=== PATIENT | male | born 1960 | race Caucasian/White ===

== ENCOUNTER 2019-06-27 18:44 | Emergency (ER) | payer SELFPAY ==
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
[2019-06-27 19:16] LABS: Absolute Lymphocytes (CBC) 2.6 K/uL (0.7-4.9); Basophils % 1.3 % (0-1.3); Hematocrit 43.8 % (39.6-49.0); Lymphocytes % 20.4 % (15.3-44.8); MPV 7.9 fL (7.6-11.3); RBC Red Blood Cell Count 4.35 M/uL (4.33-5.43)
[2019-06-27] MEDS ORDERED: FENTANYL CITR 100 MCG/2 ML ONE (19:17)
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
[2019-06-27 19:58] LABS: BUN Blood Urea Nitrogen 6 mg/dL (7-18); Bicarbonate 25 mmol/L (21-32); Glucose Level 100 mg/dL (74-106); Potassium 3.4 mmol/L (3.5-5.1); Sodium Level 132 mmol/L (136-145)
[2019-06-27 20:53] LABS: Barbiturates NEGATIVE (NEGATIVE); Benzodiazepines NEGATIVE (NEGATIVE); Cocaine NEGATIVE (NEGATIVE); METHAMPHETAM NEGATIVE (NEGATIVE); Methadone NEGATIVE (NEGATIVE); Opiates NEGATIVE (NEGATIVE); Phencyclidine NEGATIVE (NEGATIVE); THC Cannibis POSITIVE (NEGATIVE)
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
[2019-06-27 22:23] LABS: Urine Blood TRACE (NEG); Urine Glucose NEGATIVE (NEG); Urine Protein TRACE (NEG)
[2019-06-27 22:43] VITALS: TEMP 97
[2019-06-27 22:46] VITALS: BP 133/82; O2SAT 95
== END 2019-06-27 22:36 | disposition short-term general hospital (02) ==
LOC: ER 18:44
DX: S22.22XA Fracture of body of sternum, initial encounter for closed fracture (principal); S22.009A Unspecified fracture of unspecified thoracic vertebra, initial encounter for closed fracture; S22.41XA Multiple fractures of ribs, right side, initial encounter for closed fracture; S20.219A Contusion of unspecified front wall of thorax, initial encounter; F10.129 Alcohol abuse with intoxication, unspecified; F12.10 Cannabis abuse, uncomplicated; V48.5XXA Car driver injured in noncollision transport accident in traffic accident, initial encounter; F17.210 Nicotine dependence, cigarettes, uncomplicated
CPT/HCPCS: 36415; 70450; 71045; 71260; 72125; 74177; 80048; 80307; 80320; 81003; 85025; 86850; 86900; 86901; 96374; 99285; J3010; Q9967

== ENCOUNTER 2019-12-01 10:09 | Emergency (ER) | payer BC, SELFPAY ==
--- OUTSIDE RECORDS SUMMARY | 2019-12-01 10:25 | XMS REPORT | Continuity of Care Document ---
:1960 Author Organization [employer] Information [employer] Care Team Providers Name Role Phone [facility] Information [employer] Unavailable Un available Problems Problem Status Onset Classification Date Comments Sourc e Date Reported C41.1 M84.5XA Active [place] Z51.0 0 [facility] HOSP[place]/U [place] [facility] [place] MULTIPLE RIB Active [facility] FX 0 [facility] STERNAL FX Active [address] FRACTURE OF Active [facility] ONE RIB, UNSP Medica l SIDE, INIT Center FOR Medications Medication Details Route Status Patient Ordering Order Source Instructions Provider Date Iohexol 200 mL, Route: Inactive [facility] IVP, Drug Form: 2019 Medical SOLN, Dosing Center Weight 70.455, kg, ONCALL, STAT, Start date: 07/03/19 16:59:00 [employer] ATTENDANT, Duration: 1 doses or times, Dose = 2.2ml/kg, Max dose = 100ml -- "To be infused by Radiology Staff ONLY" gabapentin 300 300 mg = 1 cap, Active H [place] MG Oral Capsule PO, Q8Hnow, # 2020 Me dical 60 caplet, 0 Center Refill(s) Methocarbamol 1,500 mg = 2 [place] Oral tab, PO, TID, X 2020 Medi shivani Tablet [Robaxin] 7 day, # [address] tab, 0 Refill(s) tramadol 50 mg = 1 tab, Active [place] hydrochloride 50 PO, Q6H, PRN 2020 Mi dical MG Oral Tablet Pain Score 4-6, C enter # 50 tab, 0 Refill(s) chlorhexidine Notes: (Same No Longer [place] gluconate 1.2 As: Peridex) Active 2019 Medic al MG/ML Mouthwash Center [Peridex] Amoxicillin 875 Notes: With No Longer [place] MG / Clavulanate food. (Same as: Active 2019 Medical 125 MG Oral Augmentin 875) Cente r Tablet [Augmentin 875-mg] propofol (ANES) Route: IV, Drug Inactive [facility] form: INJ, 2019 Medical ONCE, Stop Center date: 06/30/19 11:25:00 [employer] ATTENDANT fentaNYL (ANES) Route: IV, Drug Inactive [facility] form: INJ, 2019 Medical ONCE, Stop Center date: 06/30/19 11:25:00 [employer] ATTENDANT glycopyrrolate Route: IV, Drug Inactive [facility] (ANES) form: INJ, 2019 Medical ONCE, Stop Center date: 06/30/19 11:25:00 [employer] ATTENDANT neostigmine Route: IV, Drug Inactive [facility] (ANES) form: INJ, 2019 Medical ONCE, Stop Center date: 06/30/19 11:25:00 KIDS [employer] ATTENDANT ondansetron Route: IV, Drug Inactive [facility] (ANES) form: INJ, 2019 Medical ONCE, Stop Center date: 06/30/19 11:24:00 [employer] ATTENDANT phenylephrine Route: IV, Drug Inactive [facility] (ANES) form: INJ, 2019 Medical ONCE, Stop Center date: 06/30/19 11:04:00 KIDS CL[employer] ATTENDANT lidocaine (ANES) Route: IV, Drug Inactive [facility] form: INJ, 2019 Medical ONCE, Stop Center date: 06/30/19 10:58:00 KIDS CL[employer] ATTENDANT rocuronium Route: IV, Drug Inactive [place]) form: INJ, 2019 Medical ONCE, Stop Center date: 06/30/19 10:58:00 KIDS [employer] ATTENDANT dexamethasone Route: IV, Drug Inactive [facility] (ANES) form: INJ, 2019 Medical ONCE, Stop Center date: 06/30/19 10:58:00 KIDS CL[employer] ATTENDANT ceFAZolin ([facility]) Route: IV, Drug Inactive [facility] form: INJ, 2019 Medical ONCE, Stop Center date: 06/30/19 10:53:00 KIDS [employer] ATTENDANT Hydromorphone Notes: Same as Inactive [place] Dilaudid [address] [place] [address] Center Flumazenil Notes: (Same [place] as: Romazicon) [address] [place] [address] Center Naloxone Notes: Same [place] Narcan 2020 Medical Center Ondansetron Notes: (Same Inactive [place] as: Zofran) 2020 Medical MEDICATION Center WASTE Product Size: 4 mg Product Wasted: ___ mg midazolam (ANES) Route: IV, Drug Inactive [facility] form: SOLN, 2020 Medical ONCE, Stop Center date: 06/30/19 10:38:00 [employer] ATTENDANT Lactated Ringers Route: IV, Inactive [facility] Injection IV Total Volume: 2019 Medic al (ANES) 1000 mL 1,000, Start Cent er date: 06/30/19 10:11:00 [employer] ATTENDANT, Stop date: 06/30/19 11:11:00 [employer] ATTENDANT Docusate Sodium Notes: (Same as No Longer [place] 50 MG / Senokot-S) Active 2020 Medical sennosides, LONGTERM Equiv. to Center 8.6 MG Oral Stacy-Colace. Tablet Isolyte S PH 7.4 Notes: (Same No Longer [facility] 1,000 mL as: Isolyte S Active 2020 Medical PH7.4, Center Normosol-R PH 7.4, Plasma-Lyte A ) Lovenox Notes: (Same No Longer [place] as: Lovenox) Active 2020 Medical Center Amlodipine Notes: (Same No Longer [place] as: Norvasc) Active 2020 Medical Center Albuterol 0.83 Notes: SEE RT No Longer H [place] MG/ML Inhalant DOCUMENTATION Active 2019 Med ical Solution (Same as: Center Proventil) Oxycodone Notes: (Same [place] Longer [place] Hydrochloride 5 as: Roxicodone) Active 2020 Medical MG Oral Tablet Center Morphine Notes: (Same Inactive [place] as:MORPhine 2020 Medical Sulfate) Center Folic Acid Notes: (Same No Longer [place] as: Folvite) Active 2020 Medical Center multivitamin Notes: (Same No Longer [place] as:Thera) Active 2020 Medical WASTE: F/P - Center Black; E - Municipal Trash Bin Take with food. Thiamine Notes: (Same No Longer [place] As: Vitamin B1) Active 2020 Medical Center Morphine 4 mg, Route: Inactive [place] IVP, ONCE, kg, 2019 Medical Start date: Center 06/28/19 16:33:00 [employer] ATTENDANT, Stop date: 06/28/19 16:33:00 [employer] ATTENDANT remove patch Notes: Remove No Longer [place] patch 12 hours Active [facility] after Center application each day. Sodium Chloride 1,000 mL, Rate: Inactive [place] 0.9% IV 1,000 mL 100 ml/hr, 2019 Medi shivani + M.V.I.-12 10 Infuse over: Cent er mL Daily + folic 10.1 hr, Route: acid IV 1 mg IV, Total Daily + thiamine Volume: IV 1 1,011.2, Start date: 06/28/19 9:10:00 [employer] ATTENDANT, Duration: 1 doses or times, Stop date: 06/28/19 19:15:00 [employer] ATTENDANT, 0 Lidocaine 0.05 Notes: Apply No Longer [place] MG/MG only once for Active 2020 Medical Transdermal up to 12 hours Cente r Patch in a 24-hour period (12 hours on and 12 hours off). (Same as: Lidoderm) "Remove old patch before application of new patch" Naproxen Notes: (Same No Longer [place] as: Naprosyn) Active 2020 Medical Take with food. Center Thiamine Notes: (Same Inactive [place] As: Vitamin B1) [address] [place] [address] Center Lidocaine Notes: Apply [place] Longer [place] Hydrochloride only once for Active 2020 [facility] shivani 0.05 MG/MG up to 12 hours Center Transdermal in a 24-hour Patch [Lidoderm] period (12 hours on and 12 hours off). (Same as: Lidoderm) "Remove old patch before application of new patch" Acetaminophen Notes: Max [place] Longer [place] acetaminophen Active 2020 Medical 4000 mg/day (4 Center gm/day). (Same as: Tylenol Extra Strength) gabapentin Notes: (Same No Longer [place] as: Neurontin) Active 2020 [facility] Center Tramadol Notes: Not to [place] Longer [place] exceed Active 2020 Medical 400mg/day. Center (Same As: Ultram) Enoxaparin 30), Start Inactive [place] date: 01/08/20 2020 Medical 3:00:00 [employer] ATTENDANT, Center Duration: 30 day, Stop date: 07/27/19 15:00:00 [employer] ATTENDANT Isolyte S PH 7.4 1,000 mL, Rate: Inactive [place] 1000 mL 100 ml/hr, 2019 Medical Infuse over: 10 Center hr, Route: IV, Total Volume: 1,000, Start date: 06/28/19 2:15:00 [employer] ATTENDANT, Duration: 30 day, Stop date: 07/28/19 2:14:00 [employer] ATTENDANT ketAMINE Notes: (Same No Longer [place] additive 300 mg as: keTALAR) Active 2019 Med ical [17 mg/hr] + Total volume in [place] ter Premix Diluent 30 mL syringe Sodium Chloride 0.9% 30 mL Lidocaine 1 %, Route: Inactive [place] SUB-Q, ONCE, 2019 Medical kg, Start date: Center 06/28/19 0:59:00 [employer] ATTENDANT, Stop date: 06/28/19 0:59:00 [employer] ATTENDANT Bupivacaine 10 mL, Route: Inactive [place] Hydrochloride SUB-Q, kg, 2019 Medical 2.5 MG/ML ONCE, STAT, Center Injectable Start date: Solution 06/28/19 0:59:00 [employer] ATTENDANT, Stop date: 06/28/19 0:59:00 [employer] ATTENDANT Albuterol 0.833 Notes: (Same No Longer H [place] MG/ML / as: Duoneb) Active 2019 [facility] Ipratropium [place] 0.167 MG/ML Inhalant Solution [DuoNeb] Ketamine 20 mg, Route: No Longer [place] IV, ONCE, kg, Active 2019 Medical Start date: Center 06/27/19 23:58:00 [employer] ATTENDANT, Stop date: 06/27/19 23:58:00 [employer] ATTENDANT Saline Flush Notes: Same as: No Longer [place] 0.9% BD Posiflush Active 2019 Medical Sterile Center Isolyte S PH 7.4 1,000 mL, Rate: No Longer 06/28 [place] 1000 mL 125 ml/hr, 2019 Medical Infuse over: 8 Center hr, Route: IV, Total Volume: 1,000, Priority: STAT, Start date: 06/27/19 23:55:00 [employer] ATTENDANT, Duration: 1 doses or times, Stop date: 06/28/19 7:54:00 [employer] ATTENDANT Allergies, Adverse Reactions, Alerts Substance Category Reaction Severity Reaction Status Date Comments S ource type Reported No Known Assertion Drug [facility] Medication allergy Medic al Allergies Center Immunizations Immunization Date Site Status Last Updated Comments Sour ce Given diphtheria/pertus Left completed Rosaline [facility] sis, acel/tetanus 0 deltoid Me dical adult Center Results Order Name Results Value Reference Date Interpretation Comments Avis rce Range HEMATOLOGY Segs 70.4 45.0 - 07/[address] [facility] 75.0 /[address] [place] [address] HEMATOLOGY Lymphocytes 17.0 20.0 - 07/[address] [facility] [address] HEMATOLOGY Monocytes 8.4 2.0 - 12.0 07/[address] HEMATOLOGY Eosinophils 3.1 0.0 - 4.0 07/[address] HEMATOLOGY Basophils 1.1 0.0 - 1.0 07/[address] HEMATOLOGY Neutrophils # 8.1 1.5 - 8.1 07/[address] HEMATOLOGY Lymphocytes # 2.0 1.0 - 5.5 07/[address] HEMATOLOGY Monocytes # 1.0 0.0 - 0.8 07/[address] HEMATOLOGY Eosinophils # 0.4 0.0 - 0.5 07/[address] HEMATOLOGY Basophils # 0.1 0.0 - 0.2 07/[address] HEMATOLOGY Macrocyte 1+ None Seen 07/[address] [facility] *ABN* /2019 [facility] (07/02/19 3:51 AM) [place] HEMATOLOGY WBC 11.5 3.7 - 10.4 07/[address] HEMATOLOGY RBC 3.78 4.70 - 07/02 [place] 6.[address] HEMATOLOGY Hgb 13.1 14.0 - 07/[address] [facility] 18.0 2019 [facility] HEMATOLOGY Hct 39.1 42.0 - 07/[address] [facility] [address] HEMATOLOGY MCV 103.3 80.0 - 07/[address] [facility] [address] HEMATOLOGY MCH 34.8 27.0 - 07/02 [place] 31.0 2019 [facility] HEMATOLOGY MCHC 33.6 32.0 - 07/02 [facility] [place] 36.0 /2020 [facility] HEMATOLOGY RDW 16.0 11.5 - 07/02 [place] 14.5 /2020 [facility] HEMATOLOGY Platelet 369 133 - 450 07/[address] HEMATOLOGY MPV 7.4 7.4 - 10.4 07/[address] HEMATOLOGY WBC 11.9 3.7 - 10.4 07/[address] HEMATOLOGY RBC 3.69 4.70 - 07/01 [place] 6.10 /2019 [facility] HEMATOLOGY Hgb 12.5 14.0 - 07/01 [place] 18.0 /2020 [facility] HEMATOLOGY Hct 37.9 42.0 - 07/01 [place] 54.0 /2020 [facility] HEMATOLOGY MCV 102.9 80.0 - 07/01 [place] 94.0 /2020 [facility] HEMATOLOGY MCH 33.9 27.0 - 07/01 [place] 31.0 /2019 [facility] HEMATOLOGY MCHC 32.9 32.0 - 07/01 [place] 36.0 /2020 [facility] HEMATOLOGY RDW 15.7 11.5 - 07/01 [place] 14.5 /2020 [facility] HEMATOLOGY Platelet 333 133 - 450 07/[address] HEMATOLOGY MPV 7.9 7.4 - 10.4 07/[address] HEMATOLOGY Segs 85.4 45.0 - 07/01 [place] 75.0 /2020 [facility] HEMATOLOGY Lymphocytes 7.9 20.0 - 07/01 [place] 40.0 /2020 [facility] HEMATOLOGY Monocytes 6.2 2.0 - 12.0 07/[address] HEMATOLOGY Eosinophils 0.1 0.0 - 4.0 07/[address] HEMATOLOGY Basophils 0.4 0.0 - 1.0 07/[address] HEMATOLOGY Neutrophils # 10.1 1.5 - 8.1 07/01 [facility] [place] [address] HEMATOLOGY Lymphocytes # 0.9 1.0 - 5.5 07/01 [facility] [place] [address] HEMATOLOGY Monocytes # 0.7 0.0 - 0.8 07/[address] HEMATOLOGY Macrocyte 1+ None Seen 07/[address] [facility] *ABN* /2019 Medical (07/01/19 12:35 AM) Cente r Culture: No 06/[address] [facility] Anaerobic Anaerobes 2020 Medical Isolated Center After 5 Days Gram Stain Few Wbc'S; 06/[address] [facility] Report No Organisms Seen [facility] Culture: Rare Streptococcus anginosus 06/[address] [facility] Aspirate/Body Rare Neisseria Species, Not gonorrheae or meningit idis Medical Fluid/Tissue Rare Actinomyces odontolyticus Center Actinomyces Actinomyce 06/[address] [facility] odontolyticus s [facility] odontolyti Center cus Streptococcus Streptococ 06/30 [place] anginosus cus Medical anginosus Center Culture: No 06/[address] [facility] Anaerobic Anaerobes /2019 Medical Isolated [place] After 5 Days Gram Stain Few Wbc'S; Many Rbc'S 06/[address] [facility] Report No Organisms Seen [facility] Culture: Moderate Eikenella corrodens 06/[address] [facility] Aspirate/Body Rare Neisseria subflava Medical Fluid/Tissue Rare Rothia mucilaginosa Center Rare Haemophilus hemolyticus Haemophilus Haemophilu 06/[address] [facility] hemolyticus s Medical hemolyticu Center s Neisseria Neisseria 06/[address] [facility] subflava subflava /2020 [facility] HEMATOLOGY WBC 14.5 3.7 - 10.4 06/[address] HEMATOLOGY RBC 3.81 4.70 - 06/[address] [facility] 6.10 [facility] HEMATOLOGY Hgb 13.1 14.0 - 06/[address] [facility] 18.0 /2019 [facility] HEMATOLOGY Hct 39.2 42.0 - 06/[address] [facility] 54.0 /2019 [facility] HEMATOLOGY MCV 102.8 80.0 - 06/30 [facility] 94.0 /2019 [facility] HEMATOLOGY MCH 34.2 27.0 - 06/[address] [facility] 31.0 /2020 [facility] HEMATOLOGY MCHC 33.3 32.0 - 06/30 [facility] 36.0 /2019 [facility] HEMATOLOGY RDW 15.7 11.5 - 06/[address] [facility] 14.5 /2020 [facility] HEMATOLOGY Platelet 312 133 - 450 06/[address] HEMATOLOGY MPV 7.9 7.4 - 10.4 06/[address] HEMATOLOGY Segs 76.5 45.0 - 06/[address] [facility] 75.0 /2019 [facility] HEMATOLOGY Lymphocytes 11.2 20.0 - 06/[address] [facility] 40.0 /2020 [facility] HEMATOLOGY Monocytes 8.7 2.0 - 12.0 06/[address] HEMATOLOGY Eosinophils 2.5 0.0 - 4.0 06/[address] HEMATOLOGY Basophils 1.1 0.0 - 1.0 06/[address] HEMATOLOGY Neutrophils # 11.1 1.5 - 8.1 06/[address] HEMATOLOGY Lymphocytes # 1.6 1.0 - 5.5 06/[address] HEMATOLOGY Monocytes # 1.3 0.0 - 0.8 06/[address] HEMATOLOGY Eosinophils # 0.4 0.0 - 0.5 06/[address] HEMATOLOGY Basophils # 0.2 0.0 - 0.2 06/[address] HEMATOLOGY Macrocyte 1+ None Seen 06/30 [facility]* /2019 [facility] (06/30/19 3:05 AM) [place] ELECTROLYTE AGAP 13.0 10.0 - 06/29 [facility] [place] [facility] [address] ELECTROLYTE Glucose Lvl 80 70 - 99 06/[address] ELECTROLYTE BUN 13 7 - 22 06/[address] ELECTROLYTE Creatinine 0.72 0.50 - 06/29 [facility] [place] [facility] Lvl 1.[address] ELECTROLYTE Sodium Lvl 135 135 - 145 06/[address] ELECTROLYTE Potassium Lvl 4.0 3.5 - 5.1 06/[address] ELECTROLYTE Chloride Lvl 103 95 - 109 06/[address] ELECTROLYTE CO2 23 24 - 32 06/[address] ELECTROLYTE Calcium Lvl 8.5 8.5 - 10.5 06/[address] ELECTROLYTE eGFR 104 06/29 [place] [address] Comment: The Medical eGFR is Center calculated using the CKD-EPI formula. In most young, healthy individuals the eGFR will be >90 mL/min/1.73m2 . The eGFR declines with age. An eGFR of 60-89 may be normal in some populations, particularly the elderly, for whom the CKD-EPI formula has not been extensively validated. Use of the eGFR is not recommended in the following populations:< br/>
Jami viduals with unstable creatinine concentration s, including patients and those with serious co-morbid conditions.<b r/>
Patie nts with extremes in muscle mass or diet.

The data above are obtained from the National Kidney Disease Education Program (NKDEP) which additionally recommends that when the eGFR is used in patients with extremes of body mass index for purposes of drug dosing, the eGFR should be multiplied by the estimated BMI. HEMATOLOGY Eosinophils # 0.3 0.0 - 0.5 06/29 [place] [facility] HEMATOLOGY Basophils # 0.2 0.0 - 0.2 06/29 [place] [facility] URINE AND UA Color Light Yellow Yellow 06/28 [facility] (06/28/19 3:13 AM) [place] URINE AND UA Turbidity Clear Clear 06/28 [facility] (06/28/19 3:13 AM) [facility] URINE AND UA Spec Grav 1.023 <=1.030 06/28 [facility] /2019 [facility] URINE AND UA pH 7.0 5.0 - 8.0 06/28 [facility] /2019 [facility] URINE AND UA Protein Negative Negative 06/28 [facility] (06/28/19 3:13 AM) [facility] URINE AND UA Glucose Negative Negative 06/28 [facility] *NA* [facility] (06/28/19 3:13 AM) [place] URINE AND UA Ketones Negative Negative 06/28 [facility] *NA* [facility] (06/28/19 3:13 AM) [place] URINE AND UA Bili Negative Negative 06/28 [facility] *NA* [facility] (06/28/19 3:13 AM) [place] URINE AND UA Blood Negative Negative 06/28 [facility] (06/28/19 3:13 AM) [facility] URINE AND UA <1.0 0.1 - 1.0 06/28 [facility] Urobilinogen /2019 [facility] URINE AND UA Nitrite Negative Negative 06/28 [facility] (06/28/19 3:13 AM) [facility] URINE AND UA Leuk Est Negative Negative 06/28 [facility] (06/28/19 3:13 AM) [facility] URINE AND UA Sq Epi None Seen Few 06/28 [facility] (06/28/19 3:13 AM) 2019 [facility] URINE AND UA WBC <1 0 - 5 06/[address] URINE AND UA RBC <1 0 - 2 06/[address] BLOOD BANK ABO/Rh O POS 06/[address] [facility] RESULTS [facility] BLOOD BANK Antibody Scrn Negative 06/28 [facility] as RESULTS (06/28/19 1:00 AM) 2019 [facility] CHEM PANEL Glucose Lvl 121 70 - 99 06/[address] CHEM PANEL BUN 5 7 - 22 06/28 [facility]2019 [facility] CHEM PANEL Creatinine 0.68 0.50 - 06/[address] [facility] Lvl 1.40 [facility] CHEM PANEL Sodium Lvl 134 135 - 145 06/[address] CHEM PANEL Potassium Lvl 3.4 3.5 - 5.1 06/28 [place] [facility] CHEM PANEL Chloride Lvl 98 95 - 109 06/[facility] CHEM PANEL CO2 25 24 - 32 06/[address] CHEM PANEL Calcium Lvl 8.4 8.5 - 10.5 06/28 [facility] CHEM PANEL eGFR 106 06/28 [facility] Comment: The Medical eGFR is Center calculated using the CKD-EPI formula. In most young, healthy individuals the eGFR will be >90 mL/min/1.73m2 . The eGFR declines with age. An eGFR of 60-89 may be normal in some populations, particularly the elderly, for whom the CKD-EPI formula has not been extensively validated. Use of the eGFR is not recommended in the following populations:< br/>
Jami viduals with unstable creatinine concentration s, including patients and those with serious co-morbid conditions.<b r/>
Patie nts with extremes in muscle mass or diet.

The data above are obtained from the National Kidney Disease Education Program (NKDEP) which additionally recommends that when the eGFR is used in patients with extremes of body mass index for purposes of drug dosing, the eGFR should be multiplied by the estimated BMI. CHEM PANEL AGAP 14.4 10.0 - 06/[address] [facility] 20.0 [facility] CHEM PANEL Lactic Acid 1.6 0.5 - 2.2 06/28 [place] Lvl [facility] HEMATOLOGY ACT (TEG) 97 86 - 118 06/[address] [facility] HEMATOLOGY [place] 0.3 06/[address] [facility] Rapid /2019 [facility] HEMATOLOGY R-time Rapid 0.5 0.4 - 0.7 06/28 [facility] HEMATOLOGY K-time Rapid 1.1 0.6 - 2.3 06/28 [facility] HEMATOLOGY Angle Rapid 76 64 - 80 06/28 [facility]2019 [facility] HEMATOLOGY Max Amplitude 69 52 - 71 06/28 [place] [facility] HEMATOLOGY G-value Rapid 11.2 5.0 - 11.6 06/28 [place] [facility] HEMATOLOGY Estimated % 0.0 0.0 - 7.5 06/28 [facility] Pathology Reports No Data Provided for This Section Diagnostic Reports Report Value Date Source Neck soft tissue w 07/03/2019 [facility] shivani contrast CT EXAM: CT neck soft tissue with contrast. Center INDICATION: Left mandible squamous cell carcinom a. Comparison: CT face 06/29/2019. TECHNIQUE: Postcontrast axia l imaging of the neck soft tissues is performed following the intravenous administration of 200 mL Omnipaque 350. Coronal and sagittal reconstructions are performed. Discussion: Soft tissue mass measuring approximately 4.1 x 2.6 cm causes permeative destruction of the left mandibular body. Mass involves both the lingual and buccal cortices which are markedly eroded. Suggestion of necrotic left level 1B lymph node measuring 1.1 cm in maximal dimension. Thyroid gland enhances homog eneously. Parotid and submandibular glands are unremarkable. Right pleural effusion. Left lung parenchymal nodular calcification redemonstrated. Sternal fracture redemonstrated. Spondylosis throughout the cervical spine. IMPRESSION: Tumor involving the left man dible measuring 4.1 cm in maximal dimension with extensive permeative erosion of the left mandibular body and pathologic fracture. Left level 1B lymph node carlos enrique suring 1.1 cm with suggestion of internal necrosis. 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 The study was not available for interpretation by IR till 07/06/2019. COMPARISON: Right ankle CT 06/28/2019 TECHNIQUE: Volumetric CT of the bilateral lower extremities is acquired during arterial phase, obtained from the level of distal abdominal aorta through the level of the toes following intravenous contr ast. Axial, sagittal and cor onal reconstructions, including sagittal and coronal MIP reconstructions, are created at the acquisition workstation. IV contrast: 150 mL Omnipaque 350 DLP: 2212 mGy-cm FINDINGS: Vessels: Distal aorta and iliac bif urcation: Moderate circumferential atherosclerotic calcifications. Moderate soft plaque and scattered atherosclerotic calcifications within bilateral common iliac arteries. RIGHT: External and internal oswald c arteries: Scattered atherosclerotic calcifications. Common femoral: Unremarkable. Superficial femoral: Tiny scattered foci of atherosclerotic calcifications (7, 165 and 302). Deep femoral: Tiny focus of calcification (7, 193). Popliteal: Unremarkable. Anterior tibial: Unremarkable. Dorsalis pedis patent at the foot. Tibioperoneal trunk: Unremarkable. Posterior tibial: Unremarkable. Peroneal: Unremarkable. LEFT: External and internal oswald c arteries: Scattered atherosclerotic calcifications. Common femoral: Tiny scattered atherosclerotic calcifications. Superficial femoral: Tiny scattered atheroscle rotic calcifications. Deep femoral: Unremarkable. Popliteal: Unremarkable. Anterior tibial: Tiny focu s of calcification (7, 441). Dorsalis pedis patent at the foot. Tibioperoneal trunk: Unremarkable. Posterior tibial: Unremarkable. Peroneal: Unremarkable. Bones: Redemonstration of fr acture of the right talus. Ovoid mass in the subcutaneous fat of the right anterolateral lower leg is unchanged. A cast is noted overlying the right lower leg, ankle and foot . Please refer to E CT obt ained on 06/28/2019 for further details. Degenerative changes of the spine are noted. Visualized intra-abdominal/i ntrapelvic structures and soft tissues: Small fat- containing umbilical hernia. Small bilateral fat-containing inguinal hernias. Prostate is normal in size with intraparenchym al calcifications. Phleboliths are seen within t he pelvis. IMPRESSION: 1. Moderate soft plaque and atherosclerotic calcifications involving bilateral common iliac arteries. 2. Moderate circumferential atherosclerotic calcifications of the distal aorta. 3. Scattered foci of athero sclerotic calcifications of the bilateral external and internal iliac arteries. 4. Scattered tiny foci of a therosclerotic calcifications involving bilateral lower extremities as described above. 5. Please refer to CT ankle 06/28/2019 for further bony and soft tissue findings and recommendations regarding the right lower extremity. Tib Fib w/wo contrast EXAM: MR RIGHT TIBIA-FIBULA WITH AND W ITHOUT CONTRAST 06/29/2019 [facility] MRI DATE: 06/29/2019 10:02 [employer]END[employer] Center INDICATION: - soft tissue tumor COMPARISON: CT ankle 06/28/2019 TECHNIQUE: Multiplanar pre and postcontrast MR i maging of right tibia-fibula IV contrast: 14 mL dotarem FINDINGS: Evaluation is limited due to p oor technique and large field of view. SOFT TISSUES: There is a 10 x 22 mm transv erse by 31 mm craniocaudal well circumscribed mass within the subcutaneous tissues of the anterolateral distal leg. This mass demonstrates profound uniform low T2 signal with uniform T1 intensity that i s slightly hyperintense to skeletal muscle. There is a thin rim of peripheral T2 intensity/enhancement. No intrinsic enhancement of the lesion identified. BONES: There is ill-defined edema i n the region of the talus corresponding to comminuted impaction fracture of the anterolateral aspect of the posterior facet of the talus and nondisplaced posterior process of talus fracture as better delineated on CT ankle 06/28/2019. MUSCLES: No muscular edema, fluid collection or atrophy. TENDONS: No focal tendon signal abnormality, or evidence for tenosynovitis. IMPRESSION: Unusual well-circumscribed, profoundly T2 hypointense mass with thin peripheral rim of enhancement in the subcutaneous tissues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
--- OUTSIDE RECORDS SUMMARY | 2019-12-01 10:28 | XMS REPORT | Summary of Care ---
:1960 Author Name JOSE LUIS LIPSCOMB Address Unavailable Unavailable , Care Team Providers Name Role Phone JOSE LUIS RUEL Unavailable Unavailable [facility] Unavailable Unavailable YESICA YOUNG Unavailable Unavailable Leslie YOUNG Unavailable Unavailable Audrey YOUNG Unavailable Unavailable Functional Status Name Dates Details Functional status health issues are not documented Status: Name Dates Details Cognitive status health issues are not documented Status: Problems Name Dates Details Closed fracture of multiple ribs of righ t side with routine healing, subsequent encounter (V54.19, S22.41XD) Status: Active Closed fracture of sternum with routine healing, unspecified portion of sternum, subsequent encounter (V54.19, S22.20XD) Status: Active Closed nondisplaced fracture of posterio r process of right talus with routine healing, subsequent encounter (V54.19, S92.134D) Statu s: Active Medications Name Dates Details traMADol HCl - 50 MG Oral Tablet ONE TABLET EVERY SIX HOURS PRN PAIN Quantity: 30 Refills: 0 JOSE LUIS PRODUCTION WELDER, ESTELITA Start : 17-Jul-2019 Active Gabapentin 300 MG Oral Capsule TAKE 1 CAPSULE 3 TIMES DAILY. Quantity: 90 Refills: 0 JOSE LUIS PRODUCTION WELDER, ESTELITA Start : 17-Jul-2019 Active Allergies and Adverse Reactions Name Dates Details No Known Drug Allergies (Allergy) Status : Active Procedures Procedure Dates Details Procedures not documented Immunization Name Dates Details Immunizations not documented Social History Name Dates Details - Status: Name Dates Details Never smoked tobacco (finding) Vital Signs Date Test Result Details [id number] Systolic blood pressure 143 mm[Hg] Status: Diastolic blood pressure 79 mm[Hg] Status: Heart Rate 80 /min Status: Results Date Description Value Details Results not documented Plan of Care Name Dates Details Planned Observations Planned Goals not documented Interventions Provided Medication ChangesGabapentin 300 MG Oral Capsule - StarttraMADol HCl - 50 MG Oral Tablet - StartLabs/Procedures/ImagingTobacco Use Screening; Done: 17 Jul 2019 Instructions Name Dates Details Instructions not documented Encounters Appointment; AMINA MATSON M.D.|DDS On: 12-Jul-2019 10:00 Encounter Diagnosis: Problem not documented Appointment; ADRIANA REYES P.A. On: 17-Jul-2019 8 :45 Encounter Diagnosis: Problem not documented Appointment; MD DESTINY On: 17-Jul-2019 13:15 Encounter Diagnosis: Problem not documented"
--- OUTSIDE RECORDS SUMMARY | 2019-12-01 10:28 | XMS REPORT | Continuity of Care Document ---
:1960 Author Organization [facility] t Address [address] [place] [address] Care Team Providers Name Role Phone Natalie Mauricio RN Attending Clinician Neil YOUNG Attending Clinician Diana YOUNG Attending Clinician Keena YOUNG Attending Clinician HUYEN Attending Clinician Unavailable YESICA Attending Clinician Unavailable Rajat Sandy Attending Clinician TRAUMACLINIC Attending Clinician Unavailable VISHAL Attending Clinician Unavailable ERIC Attending Clinician Unavailable Refugio Ervin Attending Clinician Diana YOUNG Admitting Clinician Refugio Ervin Admitting Clinician Problems Condition Condition Condition Status Onset Resolution Last Treating Co mments Source Name Details Category Date Date Treatment Clinician Date C41.1 Diagnosis Active 2019-10-05 Mem oria M84.5XA 4-13 14:21:00 l Z51.0 C41.1 00:00: [place] M84.5XA 00 Z51.0 Active 10/02/2019 [facility] HOSPITAL Diagnosis Active 2019-07-18 M emoria F/U 07-04 08:34:00 l HOSPITAL 00:00: Mar[place] n F/U 00 Active 07/04/2019 [facility] MULTIPLE Diagnosis Active 2019-07-07 M emoria RIB FX 06-27 22:27:00 l MULTIPLE 00:00: [place] herndon RIB FX 00 Active 06/27/2019 [facility] STERNAL FX Diagnosis Active 2019-06-27 Memoria 06-27 23:35:00 l STERNAL 00:00: [place] FX 00 Active 0 [facility] Closed Closed Problem Active Univers nondisplac nondisplac it y of ed ed [place] fracture fracture Physic i of of ans posterior posterior process of process of right right talus with talus with routine routine healing, healing, subsequent subsequent encounter encounter Closed Closed Problem Active Univers fracture fracture ity of of of [place] multiple multiple Physic i ribs of ribs of ans right side right side with with routine routine healing, healing, subsequent subsequent encounter encounter Closed Closed Problem Active Univers fracture fracture ity of of sternum of sternum [place] with with Physici routine routine ans healing, healing, unspecifie unspecifie d portion d portion of of sternum, sternum, subsequent subsequent encounter encounter 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 FRACTURE Diagnosis Active 2019-07-07 M emoria OF ONE 22:27:00 l RIB, UNSP FRACTURE Her johnson SIDE, INIT OF ONE FOR RIB, UNSP SIDE, INIT FOR Active [facility] Allergies, Adverse Reactions, Alerts Allergy Allergy Status Severity Reaction(s) Onset Inactive Treating Comm ents Source Name Type Date Date Clinician No Known No Known Active Memori a Medicati Medicati l on on Facundo Fabian s s Social History Social Habit Start Date Stop Date Quantity Comments Source Social History 2019-06-29 2019-06-29 [facility] 00:58:35 00:58:35 Smoking Status Start Date Stop Date Source Never smoked tobacco (finding) U [facility] Physicians Medications Ordered Filled Start Stop Current Ordering Indication Dosage Frequency Signature Comments Components Source Medication Medication Date Date Medication? 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 Physici ans Iohexol 2019-0 No 200 mL, Memoria 1 Route: l 22:59: IVP, Drug Form: SOLN, Dosing Weight 70.455, kg, ONCALL, STAT, Start date: 07/03/19 16:59:00 OVERHEAD CLEANER, Duration: 1 doses or times, Dose = 2.2ml/kg, Max dose = 100ml -- "To be infused by Radiology Staff ONLY" gabapentin 2019-0 Yes 300 mg = 1 M emoria 300 MG Oral -13 cap, PO, l Capsule 16:32: Q8Hnow, # Alicia nn 00 60 caplet, 0 Refill(s) Methocarbam 2019-0 Yes 1,500 mg = Memoria ol 750 MG -13 2 tab, PO, l Oral Tablet 16:32: TID, X 7 He rmann [Robaxin] 00 day, # 42 tab, 0 Refill(s) tramadol Yes 50 mg = 1 Enrike nelia hydrochlori -13 tab, PO, l de 50 MG 16:32: Q6H, PRN Alicia nn Oral Tablet 00 Pain Score 4-6, # 50 tab, 0 Refill(s) chlorhexidi 0 No Notes: Enrike nelia ne 1-10 (Same As: l gluconate 23:00: Peridex) Herm noé 1.2 MG/ML 00 Mouthwash [Peridex] Amoxicillin No Notes: Enrike nelia 875 MG / 1-10 With food. l Clavulanate 18:00: (Same as: H ermann 125 MG Oral 00 Augmentin Tablet 875) [Augmentin 875-mg] propofol 0 No Route: IV, Mem oria (ANES) 1-10 Drug form: l 17:25: INJ, ONCE, Stop date: 06/30/19 11:25:00 OVERHEAD CLEANER fentaNYL 2019-0 No Route: IV, Mem oria (ANES) 1-10 Drug form: l 17:25: INJ, ONCE, Stop date: 06/30/19 11:25:00 OVERHEAD CLEANER glycopyrrol 2019-0 No Route: IV, Memoria ate (ANES) - Drug form: l 17:25: INJ, ONCE, Stop date: 06/30/19 11:25:00 OVERHEAD CLEANER neostigmine 2019-0 No Route: IV, Memoria (ANES) 1-10 Drug form: l 17:25: INJ, ONCE, Stop date: 06/30/19 11:25:00 OVERHEAD CLEANER ondansetron 2020-0 No Route: IV, Memoria (ANES) 1-10 Drug form: l 17:24: INJ, ONCE, Stop date: 06/30/19 11:24:00 OVERHEAD CLEANER phenylephri 2020-0 No Route: IV, Memoria ne (ANES) 1-10 Drug form: l 17:04: INJ, ONCE, Stop date: 06/30/19 11:04:00 OVERHEAD CLEANER lidocaine 2019-0 No Route: IV, Me moria (ANES) 1- Drug form: l 16:58: INJ, ONCE, Stop date: 06/30/19 10:58:00 OVERHEAD CLEANER rocuronium 2019-0 No Route: IV, M emoria (ANES) 1-10 Drug form: l 16:58: INJ, ONCE, Stop date: 06/30/19 10:58:00 OVERHEAD CLEANER dexamethaso 2019-0 No Route: IV, Memoria ne (ANES) 1-10 Drug form: l 16:58: INJ, ONCE, Stop date: 06/30/19 10:58:00 OVERHEAD CLEANER ceFAZolin 2019-0 No Route: IV, Me moria (ANES) 1-10 Drug form: l 16:53: INJ, ONCE, Stop date: 06/30/19 10:53:00 OVERHEAD CLEANER Hydromorpho 2019-0 No Notes: Enrike nelia ne 1-10 Same as l 16:42: Dilaudid Flumazenil 2019-0 No Notes: Memor ia 1-10 (Same as: l 16:42: Romazicon) Naloxone 2019-0 No Notes: Memoria 1-10 Same as l 16:42: Narcan Ondansetron 2019-0 No Notes: Enrike nelia 1-10 (Same as: l 16:42: Zofran) MEDICATION WASTE Product Size: 4 mg Product Wasted: ___ mg midazolam 2019-0 No Route: IV, Me moria (ANES) 1-10 Drug form: l 16:38: SOLN, Facundo 00 ONCE, Stop date: 06/30/19 10:38:00 OVERHEAD CLEANER Lactated No Route: IV, Mem oria Ringers 1-10 Total l Injection 16:11: Volume: Alicia nn IV (ANES) 00 1,000, 1000 mL Start date: 06/30/19 10:11:00 OVERHEAD CLEANER, Stop date: 06/30/19 11:11:00 OVERHEAD CLEANER Docusate No Notes: Memoria Sodium 50 - (Same as l MG / 15:00: Senokot-S) sennosides, 00 Equiv. to MCFP 8.6 MG Stacy-Colac Oral Tablet e. Isolyte S No Notes: Memori a PH 7.4 1- (Same as: l 1,000 mL 14:08: Isolyte S Herm noé 00 PH7.4, Normosol-R PH 7.4, Plasma-Lyt e A ) Lovenox No Notes: Memoria - (Same as: l 00:00: Lovenox) Amlodipine 0 No Notes: Memor ia 06-29 (Same as: l 18:00: Norvasc) Albuterol No Notes: SEE Me moria 0.83 MG/ML 09 RT l Inhalant 17:07: DOCUMENTAT Her johnson Solution 00 ION (Same as: Proventil) Oxycodone No Notes: Memori a Hydrochlori 06-29 (Same as: l de 5 MG 17:07: Roxicodone Herm noé Oral Tablet 00 ) Morphine No Notes: Memoria 06-29 (Same l 17:07: as:MORPhin Facundo 00 e Sulfate) Folic Acid No Notes: Memor ia - (Same as: l 15:00: Folvite) multivitami No Notes: Enrike nelia n 06-29 (Same l 15:00: as:Thera) WASTE: F/P - Black; E - Municipal Trash Bin Take with food. Thiamine No Notes: Memoria 06-29 (Same As: l 15:00: Vitamin Facundo B1) Morphine 2020-0 No 4 mg, Memoria 06-28 Route: l 22:33: IVP, ONCE, [place] 00 kg, Start date: 06/28/19 16:33:00 OVERHEAD CLEANER, Stop date: 06/28/19 16:33:00 OVERHEAD CLEANER remove 2019-0 No Notes: Memoria patch -08 Remove l 22:00: patch 12 [place] 00 hours after applicatio n each day. Sodium 2020-0 No 1,000 mL, Memori a Chloride 06-28 Rate: 100 l 0.9% IV 15:10: ml/hr, [place] 1,000 mL + 00 Infuse M.V.I.-12 over: 10.1 10 mL Daily hr, Route: + folic IV, Total acid IV 1 Volume: mg Daily + 1,011.2, thiamine IV Start 1 date: 06/28/19 9:10:00 OVERHEAD CLEANER, Duration: 1 doses or times, Stop date: 06/28/19 19:15:00 OVERHEAD CLEANER, 0 Lidocaine No Notes: Memori a 0.05 MG/MG 06-28 Apply only l Transdermal 15:00: once for He rmann Patch 00 up to 12 hours in a 24-hour period (12 hours on and 12 hours off). (Same as: Lidoderm) "Remove old patch before applicatio n of new patch" Naproxen No Notes: Memoria 06-28 (Same as: l 15:00: Naprosyn) [place] 00 Take with food. Thiamine 0 No Notes: Memoria 06-28 (Same As: l 10:30: Vitamin [place] 00 B1) Lidocaine 0 No Notes: Memori a Hydrochlori 06-28 Apply only l de 0.05 10:00: once for Marino n MG/MG 00 up to 12 Transdermal hours in a Patch 24-hour [Lidoderm] period (12 hours on and 12 hours off). (Same as: Lidoderm) "Remove old patch before applicatio n of new patch" Acetaminoph No Notes: Max Memoria en 06-28 acetaminop l 09:04: hen 4000 [place] 00 mg/day (4 gm/day). (Same as: Tylenol Extra Strength) gabapentin 0 No Notes: Memor ia 06-28 (Same as: l 09:04: Neurontin) Facundo 00 Tramadol 0 No Notes: Not Mem oria 06-28 to exceed l 09:04: 400mg/day. Facundo (Same As: Ultram) Enoxaparin 2019-0 No 30), Memori a 06-28 Start l 09:00: date: [place] 06/28/19 3:00:00 OVERHEAD CLEANER, Duration: 30 day, Stop date: 07/27/19 15:00:00 OVERHEAD CLEANER Isolyte S 0 No 1,000 mL, Mem oria PH 7.4 1000 06-28 Rate: 100 l mL 08:15: ml/hr, Infuse over: 10 hr, Route: IV, Total Volume: 1,000, Start date: 06/28/19 2:15:00 OVERHEAD CLEANER, Duration: 30 day, Stop date: 07/28/19 2:14:00 OVERHEAD CLEANER ketAMINE No Notes: Memoria additive 06-28 (Same as: l 300 mg [17 07:21: keTALAR) Her johnson mg/hr] + 00 Total Premix volume in Diluent 30 mL Sodium syringe Chloride 0.9% 30 mL Lidocaine No 1 %, Memoria 06-28 Route: l 06:59: SUB-Q, Facundo 00 ONCE, kg, Start date: 06/28/19 0:59:00 OVERHEAD CLEANER, Stop date: 06/28/19 0:59:00 OVERHEAD CLEANER Bupivacaine 0 No 10 mL, Enrike nelia Hydrochlori 06-28 Route: l de 2.5 06:59: SUB-Q, kg, Alicia nn MG/ML 00 ONCE, Injectable STAT, Solution Start date: 06/28/19 0:59:00 OVERHEAD CLEANER, Stop date: 06/28/19 0:59:00 OVERHEAD CLEANER Albuterol 0 No Notes: Memori a 0.833 MG/ML 06-28 (Same as: l / 06:00: Duoneb) Facundo Ipratropium 00 [place] 0.167 MG/ML Inhalant Solution [DuoNeb] Ketamine 0 No 20 mg, Memoria 06-28 Route: IV, l 05:58: ONCE, kg, Facundo 00 Start date: 06/27/19 23:58:00 OVERHEAD CLEANER, Stop date: 06/27/19 23:58:00 OVERHEAD CLEANER Saline 2019-0 No Notes: Memoria Flush 0.9% 06-28 Same as: l 05:55: BD Fac[place] 00 Posiflush Sterile Isolyte S 2020-0 No 1,000 mL, Mem oria PH 7.4 1000 06-28 Rate: 125 l mL 05:55: ml/hr, Facundo 00 Infuse over: 8 hr, Route: IV, Total Volume: 1,000, Priority: STAT, Start date: 06/27/19 23:55:00 OVERHEAD CLEANER, Duration: 1 doses or times, Stop date: 06/28/19 7:54:00 OVERHEAD CLEANER Vital Signs Vital Name Observation Time Observation Value Comments Source Systolic blood 2019-09-20 159 mm[Hg] [facility] of pressure 10:00:00 [place] [facility] Diastolic blood 2019-09-20 89 mm[Hg] University o f pressure 10:00:00 [place] [facility] Heart Rate 2019-09-20 74 /min [facility] 10:00:00 [place] [facility] Body temperature 2019-09-20 97.2 [degF] [facility] 10:00:00 [place] [facility] Systolic blood 2019-08-11 143 mm[Hg] [facility] of pressure 10:56:00 [place] [facility] Diastolic blood 2019-08-11 79 mm[Hg] University o f pressure 10:56:00 [place] [facility] Heart Rate 2019-08-11 80 /min [facility] 10:56:00 [place] [facility] Systolic blood 2019-07-17 139 mm[Hg] Location: [facility] 13:25:00 Position: [place] [facility] Sitting Diastolic blood 2019-07-17 86 mm[Hg] Location: [facility] 13:25:00 Position: [place] [facility] Sitting Weight 2019-07-17 155 [lb_av] [facility] 13:25:00 [place] [facility] Body mass index 2019-07-17 25.02 kg/m2 University o f (BMI) [Ratio] 13:25:00 [place] [facility] Body temperature 2019-07-17 99 [degF] Method: [facility] :: Tympanic [place] [facility] Heart Rate 2019-07-17 73 /min [facility] ::00 [place] [facility] BP Systolic 2019-07-12 150 mm[Hg] [facility] ::00 [place] [facility] BP Diastolic 2019-07-12 96 mm[Hg] [facility] :55:00 [place] [facility] Height 2019-07-12 66 [in_us] [facility] 09:55:00 [place] [facility] Weight 2019-07-12 155 [lb_av] [facility] 09:55:00 [place] [facility] Body Mass Index 2019-07-12 25.02 kg/m2 University o f Calculated 09:55:00 [place] [facility] Heart Rate 2019-07-12 68 /min [facility] 09:55:00 [place] [facility] Systolic (mm Hg) 2019-07-06 [facility] 19:47:00 Diastolic (mm Hg) 2019-07-06 [facility] H ermann 19:47:00 Heart Rate 2019-07-06 [facility] Marino n 19:47:00 Respitory Rate 2019-07-06 [facility] Herm noé 19:47:00 Height 2019-07-06 167.64 cm [facility] Marino n 19:47:00 Weight 2019-07-06 [facility] Marino n 19:47:00 BMI Calculated 2019-07-06 [facility] Herm noé 19:47:00 Temperature Oral 2019-07-03 97.4 F [facility] (F) 23:39:00 Heart Rate 2019-07-03 [facility] Marino n 23:39:00 Respitory Rate 2019-07-03 [facility] Herm noé 23:39:00 Systolic (mm Hg) 2019-07-03 [facility] 23:39:00 Diastolic (mm Hg) 2019-07-03 [facility] 23:39:00 Temperature Oral 2019-07-03 97.8 F [facility] (F) 16:06:00 Heart Rate 2019-07-03 Memorial Marino n 16:06:00 Respitory Rate 2019-07-03 [facility] Herm noé 16:06:00 Systolic (mm Hg) 2019-07-03 [facility] 16:06:00 Diastolic (mm Hg) 2019-07-03 [facility] ermann 16:06:00 Heart Rate 2019-07-03 [facility] Marino n 11:37:00 Respitory Rate 2019-07-03 [facility] Herm noé 11:37:00 Systolic (mm Hg) 2019-07-03 [facility] 11:37:00 Diastolic (mm Hg) 2019-07-03 [facility] ermann 11:37:00 Temperature Oral 2019-07-03 98.1 F [facility] (F) 05:07:00 Height 2019-06-29 170.18 cm [facility] Marino n 14:01:00 Weight 2019-06-29 Brandy Pichardo n 14:01:00 BMI Calculated 2019-06-29 Brandy Agrawal noé 14:01:00 Procedures Procedure Date / Time Performed Performing Clinician [facility] e CT Chest w contrast 2019-10-03 00:00:00 [facility] [id number] Tumor 2019-09-20 00:00:00 [place] [facility] [place] cvksctb-[place]ignf[place] [id number] [facility] Neck soft tissue w 2019-09-20 00:00:00 [facility] contrast [id number] Physicians [U] XRAY FOOT MIN 3 2019-08-14 00:00:00 [facility] RIGHT [id number] Physicians [U] XRAY FOOT MIN 3 2019-07-17 00:00:00 [facility] RIGHT [id number] Physicians Encounters Start End Encounter Admission Attending Care Care Encounter Source Date/Time Date/Time Type Type Clinicians Facility Department ID 2019-10-05 Inpatient [facility] [id number] MH H 16:43:31 2019-06-28 [id number] [facility] H 03:05:00 2019-11-27 2019-11-27 Transition MauricioIshaankatrina [id number] 00:00:00 00:00:00 of Care Natalie Cruz [id number] [place] [id number] 2019-11-23 2019-11-24 [facility] [id number] 09:48:07 17:37:00 Encounter Enrike Ortiz [facility] [id number] Giselle Brink Clear [id number] [place] [id number] Hospital 109 (CLC) 2019-09-20 2019-09-20 Appointmen VIKRAM MATSON Oral & [id number] Univers 10:00:00 10:00:00 t; AMINA MATSON Maxillofaci itJim M.D.|JOSES al Surgery Benny peña M.D.|DDS Physici ans 2019-08-30 2019-08-30 AppointVIKRAM [facility] [id number] Univers 08:45:00 08:45:00 t; PATRICIA ROBERT, Trauma ity nataly GOMEZ M.D. [facility] - [facility] 2019-08-11 2019-08-11 Appointmen VIKRAM MATSON Oral & [id number] Univers 10:15:00 10:15:00 t; AMINA MATSON, Maxillofaci Nury M.D.|DDS al Surgery Benny peña M.D.|DDS Physici ans 2019-07-06 2019-08-04 Outpatient Du [facility] [id number] 09:11:00 23:59:00 Jason 00 Mtanios 2019-07-17 2019-07-17 Appointmen TRAUMACLINI [facility] [id number] Univers 13:15:00 13:15:00 t; MD P[facility] Surgery - ity of TRAUMACLIN [facility] MD ELVIRA [facility] Physici [facility] 2019-07-17 2019-07-17 Appointmen DIOR RODGERS, [facility] [id number] Univers 13:15:00 13:15:00 t; Digna RODGERS M.D. [facility] 2019-07-17 2019-07-17 Appointmen VIKRAM [facility] [id number] Univers 08:45:00 08:45:00 t; ADRIANA, Trauma anuel [facility] 2019-07-12 2019-07-12 Appointmen VIKRAM MATSON Oral & [id number] Univers 10:00:00 10:00:00 t; AMINA MATSON Maxillofaci Nury M.D.|DDS al Surgery Benny peña M.D.|DDS Physici ans 2019-07-06 2019-07-06 Outpatient [facility] [id number] [facility] 09:11:00 09:11:00 2019-06-27 2019-07-03 Outpatient Aziza [facility] [id number] 23:33:00 20:22:00 Melvin Huff 00 2019-06-27 2019-06-27 Outpatient Aziza [facility] [id number] 23:28:00 23:28:00 Melvin Huff 07 Results Test Description Test Time Test Comments Results Result [facility] e Comments [U] XRAY FOOT MIN 2019-07-17 Images Univers ity of 3 VWS RIGHT [id number] 09:26:00 [place] this accession number. HEMATOLOGY 2019-07-02 70.4 Memorial 09:51:00 [place] HEMATOLOGY 2019-07-02 17.0 Memorial 09:51:00 [place] HEMATOLOGY 2019-07-02 8.4 Memorial 09:51:00 [place] HEMATOLOGY 2019-07-02 3.1 Memorial 09:51:00 [place] HEMATOLOGY 2019-07-02 1.1 Memorial 09:51:00 [place]undo HEMATOLOGY 2019-07-02 8.1 Memorial 09:51:00 [place] HEMATOLOGY 2019-07-02 2.0 Memorial 09:51:00 [place] HEMATOLOGY 2019-07-02 1.0 Memorial 09:51:00 [place] HEMATOLOGY 2019-07-02 0.4 Memorial 09:51:00 [place] HEMATOLOGY 2019-07-02 0.1 Memorial 09:51:00 [place] HEMATOLOGY 2019-07-02 1+ Memorial 09:51:00 *ABN*(07/02/19 [place] 3:51 AM) HEMATOLOGY 2019-07-02 11.5 Memorial 09:51:00 [place] HEMATOLOGY 2019-07-02 3.78 Memorial 09:51:00 [place] HEMATOLOGY 2019-07-02 13.1 Memorial 09:51:00 Facundo HEMATOLOGY 2019-07-02 39.1 Memorial 09:51:00 [place] HEMATOLOGY 2019-07-02 103.3 Memorial 09:51:00 [place] HEMATOLOGY 2019-07-02 09:51:00 Test Item Value Reference Range Interpretation Comme nts MCH (test code = MCH) 34.8 pg 27.0-31.0 Memorial KypwjvgVMZWOOVFEI1866-54-80 09:51:0033.6[facility] HermannHEMATOLOGY 2019-07-02 09:51:0016.0[facility] KhuznldWEFHXJRVWZ3680-09-30 09:51:56246Ulyzveyj ErmwuswMQQTBSALXC1850-77-69 09:51:007.4[facility] NvzhpldVSQSSKIOSA5587-54-58 06:35:0011.9[facility] HatzjenHRDIGFJIVJ5371-65-43 06:35:003.69[facility] Facundo UKZJHTXXJO6424-64-84 06:35:0012.5[facility] PcpeilaXNFGUHDKRL8201-42-10 06:35:00 37.9[facility] OlplpegZHQBLKNKBZ6048-26-98 06:35:08990.9[facility] HermannHEMATOLOGY 2019-07-01 06:35:00 Test Item Value Reference Range Interpretation Comments MCH (test code = MCH) 33.9 pg 27.0-31.0 Memorial UxarxdjDEIKSOKRMG2461-77-04 06:35:0032.9[facility] HermannHEMATOLOGY 2019-07-01 06:35:0015.7[facility] NazkoosXCUWIDQTZX5145-64-12 06:35:27902Keoasibp NtbqmfnZHSFYXHRBW3711-72-57 06:35:007.9[facility] OpcniitAOXHCYTMUG3070-31-69 06:35:0085.4[facility] DkzpofwNWEYYMAUAN2730-35-60 06:35:007.9[facility] [place]undo QFKUTZUOIR3646-78-54 06:35:006.2[facility] RkvqzfpQSWFASTOGW4930-67-82 06:35:000.1 Memorial BuyiugyOTVSIPARLQ7620-21-91 06:35:000.4[facility] HermannHEMATOLOGY 2019-07-01 06:35:0010.1[facility] GfefrveOGHFUGVRTY0547-45-12 06:35:000.9[facility] TgpnturPXCVCNXKIP3834-08-76 06:35:000.7[facility] OksxyitBRUSOPQVBV7221-12-36 06:35:001+ *ABN*(07/01/19 12:35 AM)[facility] HermannActinomyces odontolyticus 2019-06-30 16:46:00Actinomyces odontolyticusMemorial HermannStreptococcus uhgkmrjvk8817-31-65 16:46:00Streptococcus anginosusMemorial HermannHaemophilus ygehfccgqwx9385-77-79 16:40:00Haemophilus hemolyticusMemorial HermannNeisseria pqlioitw1923-12-99 16:40:00Neisseria subflavaMemorial HermannHEMATOLOGY 2019-06-30 09:05:0014.5[facility] TrxbzqlEDNIXKTKHF8293-56-42 09:05:003.81[facility] OsovjhuEEFTZIKARD3951-09-14 09:05:0013.1[facility] XddijhaDITHLKPWSI5580-28-76 09:05:0039.2[facility] VyfeopbPSPMZNFWZW2898-68-90 09:05:26554.8[facility] [place] PYKZZWHQHF5492-03-97 09:05:00 Test Item Value Reference Range Interpretation Comments MCH (test code = MCH) 34.2 pg 27.0-31.0 Memorial FcidhfgCKVYCNSAVM6623-76-84 09:05:0033.3[facility] HermannHEMATOLOGY 2019-06-30 09:05:0015.7[facility] TqgqpsxNIEILYXODO2298-29-01 09:05:39326Eyszzvcs LnsnikpLSPNYYIDNQ5632-03-74 09:05:007.9[facility] SauwhhwSFNDSXSINX2569-63-12 09:05:0076.5[facility] HoejwooBOIVLAOIZH1187-38-95 09:05:0011.2[facility] [place] OXENWZJQRS9961-55-29 09:05:008.7[facility] LqklrbhSSUXCVWECP0337-86-16 09:05:002.5 Memorial FvztevoXYESSEEFVA2344-13-06 09:05:001.1[facility] HermannHEMATOLOGY 2019-06-30 09:05:0011.1[facility] VxvsmrdBQVOIPLIAC1022-21-37 09:05:001.6[facility] JlegmtjFTQFIJQYHW8927-19-17 09:05:001.3[facility] YvzuciwTQLOCICXZO3184-40-28 09:05:000.4[facility] ZcmtqbrCEPPXYLFSA0666-61-01 09:05:000.2[facility] LMSTAOBODD1685-68-89 09:05:001+ *ABN*(06/30/19 3:05 AM)[facility] [place] RGSOVQEKWFYR2594-23-81 09:00:0013.0[facility] AmofewzSBHSQMBDLNSJ1558-73-33 09:00:0080[facility] XqoeiwjGXYYNLFMEDWC8074-10-05 09:00:0013[facility] [place] JRVYHZJFHUJX6533-25-58 09:00:000.72[facility] ZurszonONVCSIVAFTYG8759-25-28 09:00:70146Lkdhbubi XaqsbejBHNYZZEDLQHH8618-81-63 09:00:004.0[facility] [place] YDCSAABLHDHZ5941-35-41 09:00:05070Foxdspoy UxefrisTMCGWAJQQSZV2938-27-03 09:00:0023[facility] LpjkzgjNSVPZXSIUYDS0750-83-57 09:00:008.5[facility] [place] ZERJJUAHKANZ6118-81-50 09:00:89537Zcmkgxhu QjkhiiaFJWZJVGVTM9169-53-31 09:00:00 0.3[facility] BhatvekOXXUMNMGDQ4037-86-37 09:00:000.2[facility] HermannURINE AND XXJZC4326-59-19 09:13:00Light Yellow *NA*(06/28/19 3:13 AM)[facility]ann[facility] AND HBTCX5007-62-24 09:13:00Clear (06/28/19 3:13 AM)[facility]ann[facility] AND DZDYD3795-84-38 09:13:00 Test Item Value Reference Range Interpretation Comments UA Spec Grav (test code = UA Spec 1.023 1 Grav) [facility]ann[facility] AND XXYYU8677-51-62 09:13:00 Test Item Value Reference Range Interpretation Comments UA pH (test code = UA pH) 7.0 1 5.0-8.0 [facility]ann[facility] AND SEEJA4435-06-67 09:13:00Negative (06/28/19 3:13 AM) [facility] JUUHF2309-06-15 09:13:00Negative *NA*(06/28/19 3:13 AM) [facility] [id number] 09:13:00Negative *NA*(06/28/19 3:13 AM) [facility] [id number] 09:13:00Negative *NA*(06/28/19 3:13 AM) [facility] [id number] 09:13:00Negative (06/28/19 3:13 AM) [facility] [id number] 09:13:00<1.0[facility] [id number] 09:13:00Negative (06/28/19 3:13 AM)[facility] [id number] 09:13:00Negative (06/28/19 3:13 AM)[facility] STOOL 2019-06-28 09:13:00None Seen (06/28/19 3:13 AM)[facility] ST[facility]OL 2019-06-28 09:13:00<1[facility] [id number] 09:13:00<1 [facility] [id number] 07:00:26Negative (06/28/19 1:00 AM) [facility] [id number] 06:08:87981Sdfpnmdf HermannCHEM PANEL 2019-06-28 06:08:005[facility] [id number] 06:08:000.68[facility] [id number] 06:08:54483Egfzuolu HermannCHEM [id number] 06:08:003.4[facility] [id number] 06:08:0098[facility] [id number] 06:08:0025[facility]annCHE[facility] [id number] 06:08:008.4 [facility] [id number] 06:08:57727Dtemncef HermannCHEM PANEL 2019-06-28 06:08:0014.4[facility] [id number] 06:08:001.6[facility] JepyeggJDVCQYDARS9766-78-11 06:08:00 Test Item Value Reference Range Interpretation Comments ACT (TEG) Rapid (test code = ACT (TEG) 97 s 86-118 Rapid) [facility] [id number] 06:08:00 Test Item Value Reference Range Interpretation Comments Split Point Rapid (test code = Split 0.3 min Point Rapid) [id number] 06:08:00 Test Item Value Reference Range Interpretation Comments R-time Rapid (test code = R-time 0.5 min 0.4-0.7 Rapid) [facility] [id number] 06:08:00 Test Item Value Reference Range Interpretation Comments K-time Rapid (test code = K-time 1.1 min 0.6-2.3 Rapid) [id number] 06:08:00 Test Item Value Reference Range Interpretation Comments Angle Rapid (test code = Angle 76 degrees 64-80 Rapid) [facility] [id number] 06:08:00 Test Item Value Reference Range Interpretation Comments Max Amplitude Rapid (test code = Max 69 mm 52-71 Amplitude Rapid) [facility] [id number] 06:08:0011.2[facility] 2019-06-28 06:08:000.0[facility]
--- OUTSIDE RECORDS SUMMARY | 2019-12-01 10:28 | XMS REPORT | Summary of Care ---
:1960 Author Name Alok MCKEON Address Unavailable Unavailable , Care Team Providers Name Role Phone HUYEN Sawyer, JOSES Unavailable Unavailable JOSE LUIS LIPSCOMB Unavailable Unavailable [facility] Unavailable Unavailable YESICA YOUNG Unavailable Unavailable Leslie YOUNG Unavailable Unavailable Huyen YOUNG Unavailable Unavailable Functional Status Name Dates [...] HOURS PRN PAIN Quantity: 30 Refills: 0 PALMA AMAYA APRNEBA Start : 17-Jul-2019 Active Gabapentin 300 MG Oral Capsule TAKE 1 CAPSULE 3 TIMES DAILY. Quantity: 90 Refills: 0 JOSE LUIS LIPSCOMB, ESTELITA Start : 17-Jul-2019 Active Allergies and Adverse Reactions Name Dates Details No Known Drug Allergies (Allergy) Status : Active Procedures Procedure Dates Details Procedures not documented Immunization Name Dates Details Immunizations not documented Social History Name Dates Details - Status: Name Dates Details Never smoked tobacco (finding) Vital Signs Date Test Result Details [id number] Systolic blood pressure 159 mm[Hg] Status: Diastolic blood pressure 89 mm[Hg] Status: Heart Rate 74 /min Status: Body temperature 97.2 f Status: Results Date Description Value Details Results not documented Plan of Care Name Dates Details Planned Observations Planned Goals not documented Instructions Name Dates Details Instructions not documented Encounters Appointment; AMINA MATSON M.D.|JOSES On: 12-Jul-2019 10:00 Encounter Diagnosis: Problem not documented Appointment; ADRIANA REYES P.A. On: 17-Jul-2019 8 :45 Encounter Diagnosis: Problem not documented Appointment; MD DESTINY On: 17-Jul-2019 13:15 Encounter Diagnosis: Problem not documented Appointment; DIOR RODGERS M.D. On: 17-Jul-2019 13:15 Encounter Diagnosis: Problem not documented Appointment; AMINA MATSON M.D.|DDS On: 11-Aug-2019 10:15 Encounter Diagnosis: Problem not documented Appointment; PATRICIA ROBERT M.D. On: 30-Aug-2019 8:45 Encounter Diagnosis: Problem not documented Appointment; AMINA MATSON M.D.|DDS On: 20-Sep-2019 1 0:00 Encounter Diagnosis: Problem not documented"
--- OUTSIDE RECORDS SUMMARY | 2019-12-01 10:29 | XMS REPORT | Summary of Care ---
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 Quantity: 90 Refills: 0 JOSE LUIS CHANDN, ESTELITA Start : 17-Jul-2019 Active Allergies and Adverse Reactions Name Dates Details No Known Drug Allergies (Allergy) Status : Active Procedures Procedure Dates Details PET CT Tumor [id number]-wivsh-zbpmsbms [id number] Date: 20-Sep-2019 CT Neck soft tissue w contrast 93242 Date: 20-Sep-2019 Immunization Name Dates Details Immunizations not documented Social History Name Dates Details - Status: Name Dates Details Never smoked tobacco (finding) Vital Signs Date Test Result Details [id number] Systolic blood pressure 159 mm[Hg] Status: Diastolic blood pressure 89 mm[Hg] Status: Heart Rate 74 /min Status: Body temperature 97.2 f Status: Results Date Description Value Details Results not documented Plan of Care Name Dates Details Planned Observations Planned Goals not documented Interventions Provided Labs/Procedures/ImagingCT Neck soft tissue w contrast 62097; To Be Done: [address] Tumor zgjokvj-qkbdt-tnvpqrcr 92622; To Be Done: 20 Sep 2019Plan Previous preop package for [place] updated today.Order placed for PET CT and CT neck (will not be done before September 28 due to insurance restrictions) Prescription given for [place] 5/325mg 1 tablet Q6 PRN dispense 20 tablet and Augmentin 500mg Q12 for 21 days. CAR WASH SUPERVISOR reviewed prior to prescripton. Discussion/SummaryImpression: The pt receives additional information about his disease and current condition. Reconstruction likely to be performed ALT and plate left mandible. The pt receives in depth information aboutthe procedure and expected outcome. The pt approves the treatment. Instructions Name Dates Details Instructions not documented Encounters Appointment; AMINA MATSON M.D.|DDS On: 12-Jul-2019 10:00 Encounter Diagnosis: Problem not documented Appointment; ADRIANA REYES, P.AHowie On: 17-Jul-2019 8 :45 Encounter Diagnosis: Problem [...]
--- OUTSIDE RECORDS SUMMARY | 2019-12-01 10:29 | XMS REPORT | Summary of Care ---
:1960 Author Name HUYEN Sawyer DDS Address Unavailable Unavailable , Care Team Providers Name Role Phone HUYEN Sawyer, DDS Unavailable Unavailable JOSE LUIS LIPSCOMB Unavailable Unavailable [facility] Unavailable Unavailable YESICA YOUNG Unavailable [...] PAIN Quantity: 30 Refills: 0 JOSE LUIS CASHIER GREETER, ESTELITA Start : 17-Jul-2019 Active Gabapentin 300 MG Oral Capsule TAKE 1 CAPSULE 3 TIMES DAILY. Quantity: 90 Refills: 0 JOSE LUIS CHANDN, ESTELITA Start : 17-Jul-2019 Active Allergies and Adverse Reactions Name Dates Details No Known Drug Allergies (Allergy) Status : Active Procedures Procedure Dates Details PET CT Tumor mbxmszy-xassb-zzkxscuh 49531 Date: 20-Sep-2019 CT Neck soft tissue w contrast 20062 Date: 20-Sep-2019 Immunization Name Dates Details Immunizations not documented Social History Name Dates Details - Status: Name Dates Details Never smoked tobacco (finding) Vital Signs Date Test Result Details [id number] Systolic blood pressure 159 mm[Hg] Status: Diastolic blood pressure 89 mm[Hg] Status: Heart Rate 74 /min Status: Body temperature 97.2 f Status: Results Date Description Value Details Results not documented Plan of Care Name Dates Details Planned Observations Planned Goals not documented Interventions Provided Labs/Procedures/ImagingCT Neck soft tissue w contrast 93564; To Be Done: [address] Tumor shlebgs-xqxio-sclhwryd 09557; To Be Done: 20 Sep 2019Plan Previous preop package for [place] updated today.Order placed for PET CT and CT neck (will not be done before September 28 due to insurance restrictions) Prescription given for [place] 5/325mg 1 tablet Q6 PRN dispense 20 tablet and Augmentin 500mg Q12 for 21 days. BUSINESS ANALYSIS CONSULTANT reviewed prior to prescripton. Discussion/SummaryImpression: The pt [...]
--- OUTSIDE RECORDS SUMMARY | 2019-12-01 10:29 | XMS REPORT | Summary of Care ---
:1960 Author Name HUYEN Sawyer DDS Address Unavailable Unavailable , Care Team Providers Name Role Phone HUYEN Sawyer, DDS Unavailable Unavailable JOSE LUIS LIPSCOMB Unavailable Unavailable [facility] Unavailable Unavailable YESICA YOUNG Unavailable Unavailable Leslie [...] PAIN Quantity: 30 Refills: 0 JOSE LUIS HEALTH PROMOTER, ESTELITA Start : 17-Jul-2019 Active Gabapentin 300 MG Oral Capsule TAKE 1 CAPSULE 3 TIMES DAILY. Quantity: 90 Refills: 0 JOSE LUIS CHANDN, ESTELITA Start : 17-Jul-2019 Active Allergies and Adverse Reactions Name Dates Details No Known Drug Allergies (Allergy) Status : Active Procedures Procedure Dates Details PET CT Tumor [id number]-qpnke-mghitfjb 09068 Date: 20-Sep-2019 CT Neck soft tissue w contrast 95335 Date: 20-Sep-2019 Immunization Name Dates Details Immunizations not documented Social History Name Dates Details - Status: Name Dates Details Never smoked tobacco (finding) Vital Signs Date Test Result Details [id number] Systolic blood pressure 159 mm[Hg] Status: Diastolic blood pressure 89 mm[Hg] Status: Heart Rate 74 /min Status: Body temperature 97.2 f Status: Results Date Description Value Details Results not documented Plan of Care Name Dates Details Planned Observations Planned Goals not documented Interventions Provided Labs/Procedures/ImagingCT Neck soft tissue w contrast 89051; To Be Done: [address] Tumor zxemgul-ztorn-azfpifpa 64297; To Be Done: 20 Sep 2019Plan Previous preop package for [place] updated today.Order placed for PET CT (will not be done before September 28 due to insurance restrictions)Prescription given for [place] 5/325mg 1 tablet Q6 PRN dispense 20 tablet and Augmentin 500mg Q12 for 21 days. Instructions Name Dates Details Instructions not documented [...]
--- OUTSIDE RECORDS SUMMARY | 2019-12-01 10:29 | XMS REPORT | Summary of Care ---
:1960 Author Name Alok MCKEON Address Unavailable Unavailable , Care Team Providers Name Role Phone HUYEN Sawyer, JOSES Unavailable Unavailable JOSE LUIS LIPSCOMB Unavailable Unavailable [facility] Unavailable Unavailable YESICA YOUNG Unavailable Unavailable Leslie [...] PAIN Quantity: 30 Refills: 0 JOSE LUIS CHANDN, ESTELITA Start : 17-Jul-2019 Active Gabapentin 300 MG Oral Capsule TAKE 1 CAPSULE 3 TIMES DAILY. Quantity: 90 Refills: 0 JOSE LUIS CHANDN, ESTELITA Start : 17-Jul-2019 Active Allergies and Adverse Reactions Name Dates Details No Known Drug Allergies (Allergy) Status : Active Procedures Procedure Dates Details PET CT Tumor [id number]-qnatm-bimmnhib 20268 Date: 20-Sep-2019 Immunization Name Dates Details Immunizations not documented Social History Name Dates Details - Status: Name Dates Details Never smoked tobacco (finding) Vital Signs Date Test Result Details [id number] Systolic blood pressure 159 mm[Hg] Status: Diastolic blood pressure 89 mm[Hg] Status: Heart Rate 74 /min Status: Body temperature 97.2 f Status: Results Date Description Value Details Results not documented Plan of Care Name Dates Details Planned Observations Planned Goals not documented Interventions Provided Labs/Procedures/ImagingPET CT Tumor sldmivh-crcfq-qofbzete 71514; To Be Done: 20 Sep 2019 Instructions Name Dates Details Instructions not [...]
--- OUTSIDE RECORDS SUMMARY | 2019-12-01 10:30 | XMS REPORT | Summary of Care ---
:1960 Author Name HUYEN Sawyer, AIDAN Address Unavailable Unavailable , Care Team Providers Name Role Phone Maldonado MIKE Unavailable Unavailable JOSE LUIS LIPSCOMB Unavailable Unavailable [facility] Unavailable Unavailable YESICA YOUNG Unavailable Unavailable Leslie [...] PAIN Quantity: 30 Refills: 0 JOSE LUIS ACUPRESSURIST, ESTELITA Start : 17-Jul-2019 Active Gabapentin 300 MG Oral Capsule TAKE 1 CAPSULE 3 TIMES DAILY. Quantity: 90 Refills: 0 JOSE LUIS ACUPRESSURIST, ESTELITA Start : 17-Jul-2019 Active Allergies and Adverse Reactions Name Dates Details No Known Drug Allergies (Allergy) Status : Active Procedures Procedure Dates Details PET CT Tumor wjjmjbz-zmwhu-dcsdnsnj 85008 Date: 20-Sep-2019 CT Neck soft tissue w contrast 50476 Date: 20-Sep-2019 CT Chest w contrast 46585 Date: 03-Oct-2019 Immunization Name Dates Details Immunizations not documented Social History Name Dates Details - Status: Name Dates Details Never smoked tobacco (finding) Vital Signs Date Test Result Details [id number]:00 Systolic blood pressure 159 mm[Hg] Status: Diastolic blood pressure 89 mm[Hg] Status: Heart Rate 74 /min Status: Body temperature 97.2 f Status: Results Date Description Value Details Results not documented Plan of Care Name Dates Details Planned Observations Planned Goals not documented Interventions Provided Labs/Procedures/ImagingCT Chest w contrast 97375; To Be Done: 03 Oct 2019 Instructions Name Dates Details Instructions not [...]
--- OUTSIDE RECORDS SUMMARY | 2019-12-01 10:30 | XMS REPORT | Summary of Care ---
:1960 Author Name Maldonado MCKEON Address Unavailable Unavailable , Care Team Providers Name Role Phone Maldonado MCKEON Unavailable Unavailable JOSE LUIS LIPSCOMB Unavailable Unavailable [facility] Unavailable Unavailable YESICA YOUNG Unavailable [...] PAIN Quantity: 30 Refills: 0 JOSE LUIS SENIOR LINUX ADMINISTRATOR, ESTELITA Start : 17-Jul-2019 Active Gabapentin 300 MG Oral Capsule TAKE 1 CAPSULE 3 TIMES DAILY. Quantity: 90 Refills: 0 JOSE LUIS SENIOR LINUX ADMINISTRATOR, ESTELITA Start : 17-Jul-2019 Active Allergies and Adverse Reactions Name Dates Details No Known Drug Allergies (Allergy) Status : Active Procedures Procedure Dates Details PET CT Tumor rexwkbq-yghhf-washsdvt 51489 Date: 20-Sep-2019 CT Neck soft tissue w contrast 26325 Date: 20-Sep-2019 CT Chest w contrast 95058 Date: 03-Oct-2019 Immunization Name Dates Details Immunizations not documented Social History Name Dates Details - Status: Name Dates Details Never smoked tobacco (finding) Vital Signs Date Test Result Details [id number]:00 Systolic blood pressure 159 mm[Hg] Status: Diastolic blood pressure 89 mm[Hg] Status: Heart Rate 74 /min Status: Body temperature 97.2 f Status: Results Date Description Value Details Results not documented Plan of Care Name Dates Details Planned Observations Planned Goals not documented Interventions Provided Labs/Procedures/ImagingCT Chest w contrast 20949; To Be Done: 03 Oct 2019 Instructions [...]
--- OUTSIDE RECORDS SUMMARY | 2019-12-01 10:31 | XMS REPORT | Summary of Care ---
:1960 Author Organization [facility] Address [address] [place] [address] Care Team Providers Name Role Phone Pcp, Does Not Have A Primary Care Provider Reason for Referral (Routine) Status Reason Specialty Diagnoses / Referred By Referred To Procedures Contact Contact New Request RAD-RADIATION Diagnoses Cancer Glynn Carrasco ONCOLOGY Procedures Discharge Follow-Up: Specialty Service RAD-RADIATION ONCOLOGY; 1 Week MD Mateo [address] [place] [address] (Routine) Status Reason Specialty Diagnoses / Referred By Referred To Procedures Contact Contact New Request IM-HEMATOLOGY & Diagnoses Cancer Jairon Rios ONCOLOGY Procedures Discharge Follow-Up: Specialty Service IM-HEMATOLOGY & ONCOLOGY; 1 Week MD DEEPA [address] [address] (Routine) Status Reason Specialty Diagnoses / Referred By Referred To Procedures Contact Contact New Request Diagnoses Cancer Giselle Brink MD Pcp, Patient Does Procedures Discharge Follow-up: PCP PATIENT DOES NOT HAVE A PCP; 1 Week 2019 [facility] Have A [address] [place] [address] [place], [place] Phone: [phone] Phone: [phone] MRI/CAT Scan (STAT) Status Reason Specialty Diagnoses / Referred By Referred To Procedures Contact Contact New Request Diagnostic Diagnoses Facial mass Ry Trejo, Radiology Procedures CT MAXILLOFACIAL/MANDIBLE W CONTRAST CT MAXILLOFACIAL/MANDIBLE WO CONTRAST [address] [place] [address] [address] [place] [address] MRI/CAT Scan (STAT) Status Reason Specialty Diagnoses / Referred By Referred To Procedures Contact Contact New Request Diagnostic Diagnoses Facial mass Ry Trejo, Radiology Procedures CT SOFT TISSUE NECK W CONTRAST [address] [facility] [address] [place] [address] Reason for Visit Reason Comments Other left jaw pain Auth/Cert Status Reason Specialty Diagnoses / Referred By Referred To Procedures Contact Contact Emergency Medicine [facility] Em ergency Dept [address] [place] [address] Fax: Encounter Details Date Type Department Care Team Description 11/23/2019 - Hospital Encounter [facility] Kareem Trejo MD [address] [facility] [address] [place], [place] [id number] Cancer 11/24/2019 Medicine/Surgery [facility] Enrike Ortiz MD [address] [facility]. [facility] [address] [place], [place] [address] 4A Giselle Brink MD [address] [id number] [address] [place] [address] Allergies No Known Allergiesdocumented as of this encounter (statuses as of 11/24/2019) Medications Medication Sig Dispensed Refills Start Date End Date Status gabapentin 300 mg Take 1 capsule by 90 capsule 0 11/24/2019 Active capsuleIndications: mouth 3 (three) Cancer times daily for 30 days. HYDROcodone-acetamin Take 1 tablet by 40 tablet 0 11/24/2019 Active ophen 10-325 mg mouth every 6 tabletIndications: (six) hours as Cancer needed for Pain (scale 4-6) or Pain (scale 7-10). ketorolac 10 mg Take 1 tablet by 20 tablet 0 11/24/2019 Active tabletIndications: mouth every 12 Cancer (twelve) hours as needed for Pain (scale 7-10). amoxicillin-pot Take 1 tablet by 21 tablet 0 11/24/20192019 Active clavulanate 500 mg mouth 3 (three) (AUGMENTIN) 500-125 times daily for 7 mg days. tabletIndications: Cancer ondansetron (ZOFRAN) Take 1 tablet by 20 tablet 0 11/24/2019 Active 4 mg mouth every 8 tabletIndications: (eight) hours as Cancer needed for Nausea and Vomiting (N/V). documented as of this encounter (statuses as of 11/24/2019) Active Problems Problem Noted Date E44.0 Moderate protein calorie malnutrition 11/24/2019 Cancer 11/23/2019 documented as of this encounter (statuses as of 11/24/2019) Social History Tobacco Use Types Packs/Day Years Used Date Former Smoker Smokeless Tobacco: Never Used Tobacco Cessation: Counseling Given: Yes Financial Resource Strain Answer Date Recorded How hard is it for you to pay for the very basics like Not v estuardo hard 11/23/2019 food, housing, medical care, and heating? Food Insecurity Answer Date Recorded Within the past 12 months, you worried that your food Someti mes true 11/23/2019 would run out before you got money to buy more. Within the past 12 months, the food you bought just Sometime s true 11/23/2019 didn't last and you didn't have money to get more. Transportation Needs Answer Date Recorded In the past 12 months, has lack of transportation kept you f rom No 11/23/2019 medical appointments or from getting medications? In the past 12 months, has lack of transportation kept you f rom No 11/23/2019 meetings, work, or getting things needed for daily living? Sex Assigned at Date Recorded Not on file Job Start Date Occupation Industry Not on file Not on file Not on file Travel History Travel Start Travel End No recent travel history available. COVID-19 Exposure Response Date Recorded In the last month, have you been in contact with No / Unsure 11/23/2019 7:11 PM CDT someone who was confirmed or suspected to have Coronavirus / COVID-19? documented as of this encounter Last Filed Vital Signs Vital Sign Reading Time Taken Comments Blood Pressure 124/74 11/24/2019 2:30 PM CDT Pulse 84 11/24/2019 2:30 PM CDT Temperature 36.4 C (97.5 F) 11/24/2019 2:30 PM CDT Respiratory Rate 18 11/24/2019 2:30 PM CDT Oxygen Saturation 95% 11/24/2019 2:30 PM CDT Inhaled Oxygen Concentration - - Weight 57.6 kg (127 lb) 11/24/2019 3:00 AM CDT Height 167.6 cm (5' 6") 11/23/2019 9:44 AM CDT Body Mass Index 20.5 11/23/2019 9:44 AM CDT documented in this encounter Discharge Summaries Giselle Brink MD - 11/24/2019 2:21 PM CDT [facility] Internal Medicine Discharge Summary Date of Service: 11/24/2019 ADMIT DATE: 11/23/2019 DISCHARGE DATE: 11/24/2019 ATTENDING MD: Giselle Brink PCP: PATIENT DOES NOT HAVE A PCP REASON FOR ADMISSION Head and neck cancer FINAL DIAGNOSIS: (the reason, after study, for admitting the patient to the hospital) Same as above SECONDARY DIAGNOSIS: Active Problems: Cancer (11/23/2019) POA: Yes E44.0 Moderate protein calorie malnutrition (11/24/2019) POA: Unknown CONSULTING SERVICES: oncology PROCEDURES: none SIGNIFICANT LAB/X-RAYS: reviewed PHYSICAL EXAM: 11/24/19 0300 Weight: 57.6 kg (127 lb) Height: Vitals: 11/24/19 0326 11/24/19 0700 11/24/19 1100 11/24/19 1430 BP: 123/82 118/84 124/74 Pulse: 88 89 84 Resp: 17 17 18 Temp: 36.5 C (97.7 F) 36.7 C (98 F) 36.4 C (97.5 F) TempSrc: Oral Oral Oral SpO2: 91% 93% 99% 95% Weight: Height: Gen: alert, no distress HEENT/Lymph: moist membranes, large mass L sided, poor dentition. Resp: CTAB unlabored Cardio: RRR no mrg GI: soft, NT, ND abdomen; +BS MSK: no joint effusions, normal ROM, no edema Skin: no bruise/rash Neuro: no deficits, normal gait HOSPITAL COURSE: Mr. 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 Per patient he was diagnosed with squamous cell oral cancer in at [facility], at that time he was uninsured and could not get surgical resection of the tumor. Now he has insurance and would like further evaluation of his mass. Currently he reports pain at the cancer site in the left jaw. His pain is well controlled with Richland. Oncology evaluated the patient and recommended Radiation oncology follow up. Dr Rios spoke with Dr Maki, who accepts the patient's insurance and will see him in the clinic. Mr Davalos has been provided the clinic information for both physicians by me. Will prescribe Richland for cancer related pain. Complete course of Augmentin, started inpt. ITEMS FOR FOLLOW UP PROVIDER: (including pending labs/cultures/studies, anticipated problems, etc.) As above FUNCTIONAL STATUS: fully ambulatory DISCHARGE CONDITION: good COGNITIVE STATUS: cognitively intact DIET: regular ACTIVITY: as tolerated DISCHARGE MEDICATIONS: Current Discharge Medication List START taking these medications Details amoxicillin-pot clavulanate 500 mg (AUGMENTIN 500) 500 mg Take 500 mg by mouth 3 (three) times daily. Qty: 21 tablet, Refills: 0 Start date: 11/24/2019, End date: 12/01/2019 Associated Diagnoses: Cancer gabapentin (NEURONTIN) 300 mg Take 300 mg by mouth 3 (three) times daily. Qty: 90 capsule, Refills: 0 Start date: 11/24/2019, End date: 12/24/2019 Associated Diagnoses: Cancer HYDROcodone-acetaminophen (NORCO) 1 tablet Take 1 tablet by mouth every 6 (six) hours as needed for Pain (scale 4-6) or Pain (scale 7-10). Qty: 40 tablet, Refills: 0 Start date: 11/24/2019 Comments: New medication for acute and chronic pain. Associated Diagnoses: Cancer ketorolac (TORADOL) 10 mg Take 10 mg by mouth every 12 (twelve) hours as needed for Pain (scale 7-10). Qty: 20 tablet, Refills: 0 Start date: 11/24/2019 Associated Diagnoses: Cancer ondansetron (ZOFRAN) 4 mg Take 4 mg by mouth every 8 (eight) hours as needed for Nausea and Vomiting(N/V). Qty: 20 tablet, Refills: 0 Start date: 11/24/2019 Associated Diagnoses: Cancer WOUND CARE: none DISCHARGE: home self care FOLLOW-UP APPOINTMENT: PCP [address] Rios [address] Maki 1 week Time spent: > 30 minutes, 50 minutes. Giselle Brink MD 11/24/2019 documented in this encounter Discharge Instructions AppointmentsSheyla Wallis - 11/24/2019 2:45 PM CDTPatient sister Lexy will scheduled his follow up appointments. AttachmentsThe following attachments cannot be sent through Care Everywhere. Amoxicillin; Clavulanic Acid tablets (Italian)Gabapentin capsules or tablets (Italian)Acetaminophen; Hydrocodone tablets or capsules (Italian)Ketorolac tablets (Italian)Ondansetron tablets (Italian)Cancer, Resources for People with (Italian)documented in this encounter Progress Notes Addie Concepcion RN - 11/24/2019 2:47 PM CDT Care Management Discharge Disposition Note (DCDN) 5-2-1 Interventions: Disease specific education;Intensive medication reconciliation/management;Teachback;Clear discharge plan;Follow-up appointments 5-2-1 Providers: Physician;Nurse 5-2-1 Patient Capacity Improvements: Avoidance of adverse events/readmission Discharge Plan for ongoing care and services: (HOME) Is this a new referral: No, return to previous provider Patient Choice completed for referred services: Return to previous provider Patient choice completed for referred services: Return to previous provider Discussed with patient/patients family involved in decision making: Yes Patient or family caregiver understands, and agrees with discharge plan. Community resources/referrals made or provided to patient: No Transportation: Private Vehicle(Lexy Davalos [phone]) Mental Status: Alert & Oriented to Person,Place & Time Living Arrangement: Home Other living arrangement: Address of living arrangement: [address] [place] [address] Funding Resources: Commercial Expected discharge date: 11/24/2019 Time: Afternoon [30] CM/SW Name & Contact number: Addie Concepcion RN Ph. [phone] The following information has been provided to the facility noted above: reason for the patient discharge or transfer; patients physical and psychosocial status; summary of care, treatment, servicesprovided to patient; and the patient progress toward goals. Addie Concepcion RN - 11/24/2019 9:22 AM CDTCare Management Social Functional Assessment Patient Name: Dao Davalos Age: [age] year old Sex: male Previous admit date: N/A Current diagnosis and co-morbidities: AGGRESSIVE SQUAMOUS CELL CARCINOMA OF JAW Readmission Questions: Was patient discharged from any acute care hospital within the last 30 days: No Social Functional Assessment: Primary language spoken/preferred: Italian Mental Status: Alert & Oriented to Person,Place & Time Information given by: Self Patient's support system: Other Name and number of support system: Lexy Anoop [phone] Primary Senior 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 Web Application Developer: Self MPOA: Same as support system;Yes Living Arrangement: Home Address of living arrangement : [address] [place] [address] Persons living in home: [facility] Barriers to returning home: None Baseline functional status- ambulation: Independent Functional status-baseline personal care: Independent Baseline functional status- driving: Independent Baseline functional status- grocery shopping: Independent Functional status-baseline housekeeping: Independent Functional status-baseline meal prep: Independent Current functional status same as prior: Yes Home Health Care Agency: No Provider Services: No DME Company: No Equipment: None Hemodialysis: No Community resources utilized: None Funding Resources: Commercial Prescription coverage plan: Commercial Pharmacy where meds are filled: Other Other pharmacy: [id number] - [place] [address] [address] [facility] [address] Anticipated services prior to disharge: None Expected mode of discharge transportation: Same as support system Additional info required for discharge planning: No needs identified Recommended discharge plan: Home Any issues or concerns with obtaining/affording your medications at home: no. Are you or your support system able to order picker medications at discharge: yes. Describe: no issues. Patient states he lives at home with his , but would only like Lexy (sister) as his emergency contact as she is his MPOA and is familiar with all of his medical issues. Patient also said he isworking to find a new PCP, he and his sister are working together with his insurance. SFA Complete: Social Functional Assessment complete: Yes Alcohol Use Screening (AUDIT-C) How often do you have a drink containing alcohol?: Never SCORE: 0 Did patient elect to have resources provided: No Actions taken: Provided support Role of Care Management explained. Addie Concepcion MACHINE DEBURRER, CMSRN Customer Specialist- [facility] Department of Care Management O: [phone] E: [email or web address] documented in this encounter Plan of Treatment Name Type Priority Associated Diagnoses Date/Ti me BLOOD CULTURE SCREEN LAB Routine 8:30 PM CDT URINE CULTURE LAB Routine 11/24/2019 3: 37 PM CDT BLOOD CULTURE SCREEN LAB Routine 8:46 PM CDT Name Type Priority Associated Diagnoses Order S chedule URINE CULTURE LAB Routine ONCE for 1 Occ urrences starting 11/23/2019 unti l 11/23/2019 Health Maintenance Due Date Last Done Comments HEPATITIS C (HCV) SCREEN 1960 PNEUMOCOCCAL 0-64 YEARS COMBINED SERIES (1 of 3 - 1968 PCV13) DTaP,Tdap,and Td Vaccines (1 - Tdap) 1973 Depression Screening 1974 COLONOSCOPY 2012 Zoster Recombinant Vaccine (SHINGRIX) (1 of 2) 2012 LUNG CANCER SCREEN: Recommended for age 55-80 with 30 + 05/30/20 17 pack year history INFLUENZA VACCINE (Season Ended) 2020 documented as of this encounter Procedures Procedure Name Priority Date/Time Associated Comments Diagnosis EXTRA TUBE URINE Routine 11/24/2019 3:37 PM CDT CBC WITH DIFFERENTIAL Routine 11/24/2019 2:23 Re sults for this AM CDT procedure are i n the results section. CBC WITH DIFFERENTIAL Routine 11/24/2019 2:23 Re sults for this AM CDT procedure are i n the results section. BASIC METABOLIC PANEL Routine 11/24/2019 2:23 Re sults for this (NA, K, CL, CO2, AM CDT procedure a re in GLUCOSE, BUN, the results CREATININE, CA) section. MAGNESIUM Routine 11/24/2019 2:23 Results for this AM CDT procedure are i n the results section. PROCALCITONIN Routine 11/23/2019 8:30 Results fo r this PM CDT procedure are i n the results section. PHOSPHORUS Routine 11/23/2019 8:30 Results for this PM CDT procedure are i n the results section. COVID-19 (ID NOW RAPID STAT 11/23/2019 2:04 Facial mass R esults for this TESTING) PM CDT procedure are i n the results section. CT SOFT TISSUE NECK W STAT 11/23/2019 11:40 Facial mass Re sults for this CONTRAST AM CDT procedure are i n the results section. CT STAT 11/23/2019 11:40 Facial mass Results for this MAXILLOFACIAL/MANDIBLE AM CDT proce dure are in W CONTRAST the results section. CBC WITH DIFFERENTIAL STAT 11/23/2019 10:25 Facial mass Re sults for this AM CDT procedure are i n the results section. ACTIVATED PARTIAL STAT 11/23/2019 10:25 Facial mass Result s for this THRMPLAS NATANAEL AM CDT procedure are i n the results section. PROTHROMBIN TIME / INR STAT 11/23/2019 10:25 Facial mass R esults for this AM CDT procedure are i n the results section. CBC WITH DIFFERENTIAL Routine 11/23/2019 10:25 Facial mass Re sults for this AM CDT procedure are i n the results section. BASIC METABOLIC PANEL STAT 11/23/2019 10:25 Facial mass Re sults for this (NA, K, CL, CO2, AM CDT procedure a re in GLUCOSE, BUN, the results CREATININE, CA) section. HEPATIC FUNCTION PANEL STAT 11/23/2019 10:25 Facial mass R esults for this ([id number]) (ALB,T.PRO,BILI AM CDT proc edure are in T,BU/BC,ALT,AST,ALK the resu lts PHOS) section. AGREEMENTS Routine 11/23/2019 12:01 AUTHORIZATIONS AND AM CDT IRREVOCABLE ASSIGNMENTS (FORM 2001) EXTERNAL PROVIDER Routine 11/23/2019 12:01 RECORDS AM CDT documented in this encounter Results EXTRA TUBE URINE (11/24/2019 3:37 PM CDT) Specimen Urine - URINE, CLEAN CATCH Performing Organization Address City/State/Zipcode Phone Number [facility] CLIA: [id number], [address] [place] [id number] [facility] Alycia Vargas CBC WITH DIFFERENTIAL (11/24/2019 2:23 AM CDT) [facility] WBC 18.75 (H) 4.20 - 10.70 [facility] 10*3/L [facility] RBC 3.85 (L) 4.26 - 5.52 [facility] 10*6/L [facility] HGB 12.3 12.2 - 16.4 [facility] g/dL [facility] HCT 35.1 (L) 38.4 - 49.3 % [facility] MCV 91.2 81.7 - 95.6 fL [facility] MCH 31.9 26.1 - 32.7 pg [facility] MCHC 35.0 31.2 - 35.0 [facility] g/dL [facility] RDW-SD 45.7 38.5 - 51.6 fL [facility] RDW-CV 13.7 12.1 - 15.4 % [facility] [address] (H) 150 - 328 [facility] 10*3/L [facility] MPV 8.4 (L) 9.8 - 13.0 fL [facility] NRBC/100 WBC 0.0 0.0 - 10.0 /100 [facility] WBCs [facility] NRBC x10^3 <0.01 10*3/L [facility] GRAN MAT (NEUT) % 74.7 % [facility] IMM GRAN % 0.50 % [facility] LYMPH % 14.3 % [facility] MONO % 7.3 % [facility] EOS % 2.8 % [facility] BASO % 0.4 % [facility] GRAN MAT x10^3(ANC) 14.01 (H) 1.99 - 6.95 [facility] 10*3/uL [facility] IMM GRAN x10^3 0.09 (H) 0.00 - 0.06 [facility] 10*3/uL [facility] LYMPH x10^3 2.69 1.09 - 3.23 [facility] 10*3/uL [facility] MONO x10^3 1.36 (H) 0.36 - 1.02 [facility] 10*3/uL [facility] EOS x10^3 0.52 0.06 - 0.53 [facility] 10*3/uL [facility] BASO x10^3 0.08 0.01 - 0.09 [facility] 10*3/uL [facility] Specimen Blood - ARM, RIGHT Performing Organization Address City/[facility]/Zipcode Phone Number [facility] CLIA: [id number], [address] [place] [place], [place] [id number] [facility] Magnesium Serum (11/24/2019 2:23 AM CDT) Pathologist Sig nature MAGNESIUM 1.3 (L) 1.7 - 2.4 mg/dL [facility] Specimen Blood - ARM, RIGHT Performing Organization Address [facility] Phone Number [facility] CLIA: [id number], [address] [place] [address] [facility] [address] Basic Metabolic Panel (NA, K, CL, CO2, GLUCOSE, BUN, CREATININE, CA) (11/24/2019 2:23 AM CDT) NA 132 (L) 135 - 145 [facility] mmol/L [facility] K 3.4 (L) 3.5 - 5.0 [facility] mmol/L [facility] CL 104 98 - 108 mmol/L [facility] CO2 TOTAL 23 23 - 31 mmol/L [facility] AGAP 5 2 - 16 [facility] BUN 8 7 - 23 mg/dL [facility] GLUCOSE 103 70 - 110 mg/dL [facility] CREATININE 0.40 (L) 0.60 - 1.25 [facility] mg/dL [facility] CALCIUM 8.2 (L) 8.6 - 10.6 [facility] mg/dL [facility] eGFR Calculation 221.7 mL/min/1.73m2 [facility] (Non-[facility] eGFR Calculation 268.7 mL/min/1.73m2 [facility] () [facility] Specimen Blood - ARM, RIGHT Narrative Performed At Association of Glomerular Filtration Rate [facility] (GFR) and Staging of Kidney Disease* [place] + + --+ + | GFR (mL/min/1.73 m2) | With Kidney Damage | Without Kidney Damage + + --+ + | >90 | Stage one | Normal + + --+ + | 60-89 | Stage two | Decreased GFR + + --+ + | 30-59 | Stage three | Stage three + + --+ + | 15-29 | Stage four | Stage four + + --+ + | <15 (or dialysis) | Stage five | Stage five + + --+ + *Each stage assumes the associated GFR level has been in effect for at least three months. Stages 1 to 5, with or without kidney disease, indicate chronic kidney disease. Notes: Determination of stages one and two (with eGFR >59mL/min/1.73 m2) requires estimation of kidney damage for at least three months as defined by structural or functional abnormalities of the kidney, manifested by either: Pathological abnormalities or Markers of kidney damage (including abnormalities in the composition of the blood or urine or abnormalities in imaging tests). Performing Organization Address City/State/Zipcode Phone Number [facility] CLIA: [id number], [address] [place] [address] [phone] SERVICES-[facility] PROCALCITONIN (11/23/2019 8:30 PM CDT) Pathologist Sig nature Procalcitonin 0.24 (H) <0.07 ng/mL [facility] Specimen Blood - ARM, RIGHT Narrative Performed At INTERPRETATION OF PROCALCITONIN RESULTS IN ADULTS >= 1 8 [facility] YEARS OF AGE Initiation and discontinuation of antibiotics on patie nts with suspected or confirmed Lower Respiratory Tract Infection in Adults >= 18 years of age. + + + +----- ------ + |Procalcitonin |Interpretation |Antibiotic |Considerations |ng/mL | |recommend ation | + + + +----- ------ + | <0.1 | Bacterial | Strongly | | | infection very | discouraged | Overruling: | | unlikely | | Clinically unstable + + + + H igh risk for adverse | <0.25 | Bacterial | Discouraged | outcome | | infection | | SEE IMPORTANT NOTE | | unlikely | | + + + +----- ------ + | >=0.25 | Bacterial | Encouraged | | | infection | | | | likely | | Consider treatment failure + + + + if l evels does not decrease | >0.5 | Bacterial | Strongly | appropriately | | infection very | encouraged | | | likely | | + + + +----- ------ + Discontinuation of antibiotics in high-acuity patients with suspected or confirmed sepsis in Adults >= 18 years of age. + + + +----- ------ + |Procalcitonin |Interpretation |Antibiotic |Considerations |ng/mL | |recommend ation | + + + +----- ------ + | <0.25 | Bacterial | Strongly | | | infection very | discouraged | Overruling: | | unlikely | | Clinically unstable + + + + H igh risk for adverse | <0.5 or drop | Bacterial | Discouraged | outcome | >80% from | infection | | SEE IMPORTANT NOTE | highest PCT | unlikely | | | level | | | + + + +----- ------ + | >=0.5 | Bacterial | Encouraged | | | infection | | | | likely | | Consider treatment failure + + + + if l evels does not decrease | >1.0 | Bacterial | Strongly | appropriately | | infection very | encouraged | | | likely | | + + + +----- ------ + Percentage of drop of Procalcitonin calculation for Discontinuation of antibiotics in high-acuity patients with suspected or confirmed sepsis in Adults >= 18 years of age. Procalcitonin highest{}-Procalcitonin current{} Delta Procalcitonin = x100% Procalcitonin current {} IMPORTANT NOTE: Procalcitonin may be elevated without bacterial infection by physiologic stress related to t rauma, sahni, chronic dialysis, metastatic cancer, surgery in the past seven days, malaria, some fungal infections, and some forms of vasculitis. The interpretation algorithm may not apply to patients with immunosuppression (equivalent o f >10 mg of prednisone daily), HIV with CD4 cell count < 350 cells/mm3, active malignancy on systemic chemotherapy, solid organ transplant or [facility], or [facility] acquired pneumonia. Additionally, some [facility] nical trials of procalcitonin have excluded patients with sh ock requiring vasopressor use, acute respiratory failure requiring mechanical ventilation, or those with known lung abscess/empyema. For further information please refer to: [email or web address] Performing Organization Address City/State/Zipcode Phone Number [facility] CLIA: [id number], [address] [place], [place] [address] [facility] Phosphorus Serum (11/23/2019 8:30 PM CDT) Pathologist [facility] [place] nature PHOSPHORUS 4.0 2.5 - 5.0 mg/dL [facility]- [facility] Specimen Blood - ARM, RIGHT Performing Organization Address City/State/Zipcode Phone Number [facility] CLIA: [id number], [address] [place] [address] [facility] [address] COVID-19 (ID NOW RAPID TESTING) (11/23/2019 2:04 PM CDT) SARS-CoV-2 Rapid ID Not Detected Not Detected [facility] Specimen Swab - NASOPHARYNGEAL SWAB Narrative Performed At [place] COVID-19 Assay is an isothermal nucleic [facility] acid amplification test intended for the qualitative detection of nucleic acid from SARS-CoV-2 viral RNA in nasopharyngeal (CO[employer] DEL[employer]ER) specimens. It is used under Emergency Use Authorization (EUA) by FDA. The limit of detection (LOD) of the assay is 125 Genome Equivalents/mL. A positive result is indicative of the presence of SARS-CoV-2 RNA. Clinical correlation with patient history and other diagnostic information is necessary to determine patient infection status. A negative (Not Detected) result does not preclude SARS-CoV-2 infection. In patients with clinical symptoms and other tests that are consistent with SARS-CoV-2 infection, negative results should be treated as presumptive negative and a new specimen should be tested with alternative PCR molecular test. Invalid: Please collect a new specimen for repeat patient testing if clinically indicated. Performing Organization Address City/State/Zipcode Phone Number [facility] CLIA: [id number], [address] [place], [place] [address] MAXILLOFACIAL/MANDIBLE W CONTRAST (11/23/2019 11:40 AM CDT) Specimen Impressions Performed At PACS/VR/DOSE Large destructive mass is seen involving the left hemimandible, with possible origins in the buccal or gingival mucosa. 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 The above-mentioned mass significantly e rodes the left mandible with invasion of the overlying skin and small amount of ext ension into the left anterior masseter and the left inferior medial pterygoid. The left sublingual space is involved with suspec travis involvement of the left submandibular gland, left mylohyoid and left anterior belly of the digastric. No skull base involvement is seen. The remaining details are discussed in the body the report. Small lymph nodes are seen in the neck bilaterally. Th dimitrios are not enlarged by size criteria and do not demonstrate any morphological abnormality. Therefore these remain equivocal for metastasis. 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 COMPARISON: None. FINDINGS: Primary mass size and location: Large he terogenous mass centered in the left mandibular body, could be arising f rom the changes are more buccal mucosa. The mass measures approximately 5.8 x 7.2 cm (14:31). Mandible or maxillary invasion:Yes, ther e is significant erosion and destruction of the left parasymphyseal r egion, left mandibular body and angle. Maxillary sinus or skin of the face skin invasion: The re is invasion of the skin in the left perimandibular/submandibular region ( 14:20). The maxillary sinus invasion is seen. Core Shaper Top space invasion:The left anter ior masseter muscle is involved. The most inferior aspect of the medial mild pterygoid abuts the mass like region and infiltration into this locati on is possible. Pterygoid plate/skull base invasion:None . Internal carotid artery involvement/inva mamie:None. Upper cervical lymph nodes: Small lymph nodes are seen in the level 1 and 2 bilaterally. For example a right level 1 B lymph node measures 8 mm and a left level 2A lymph node measures 9 mm i n long axis (603:35). Small bilateral level 1A lymph nodes are also seen (603:45). None of these lymph nodes demonstrate necrosis or enlarged b y size criteria and are nonspecific. Lower cervical lymph nodes: Small left l evel 3/4 lymph node are nonspecific, for example one measures 7 mm (603:54). Extra dawna lymph node extension:None ob served on imaging. The left submandibular gland is deformed with irregular contour anterior inferiorly and loss of fascial planes in this region (603:38). Invasion into this region is possible. The above-mentioned heterogeneous mass w hich is these midline in the submental region, invading the left digastric and left mylohyoid. The left sublingual space and neurovascular bundle in this noemí on is also involved. The remaining extrinsic and intrinsic muscles of the t ongue are relatively spared. Symmetric soft tissue is noted in the na sopharynx, oropharynx and hypopharynx. The larynx is unremarkable. The thyroid g land is unremarkable. The parotid and left submandibular gland s are within normal limits. A large retention cyst is noted in the right maxillary sinus. Mild mucosal thickening is seen in the left maxillary sinus. The remaining paranasal sinuses and mastoid air cells are clear. Marked left-sided nasal septal deviation is noted. Emphysematous changes are seen in the garfield ngs bilaterally including a partially calcified plaque in the left u pper lobe of the lung. 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 COMPARISON: None. FINDINGS: Primary mass size and location: Large he terogenous mass centered in the left mandibular body, could be arising f rom the changes are more buccal mucosa. The mass measures approximately 5.8 x 7.2 cm (14:31). Mandible or maxillary invasion:Yes, ther e is significant erosion and destruction of the left parasymphyseal r egion, left mandibular body and angle. Maxillary sinus or skin of the face skin invasion: There is invasion of the skin in the left perimandibular/submandi bular region (14:20). The maxillary sinus invasion is seen. Core Shaper Top space invasion:The left anter ior masseter muscle is involved. The most inferior aspect of the medial m ild pterygoid abuts the mass like region and infiltration into this locati on is possible. Pterygoid plate/skull base invasion:None . Internal carotid artery involvement/inva mamie:None. Upper cervical lymph nodes: Small lymph nodes are seen in the level 1 and 2 bilaterally. For example a right level 1 B lymph node measures 8 mm and a left level 2A lymph node measures 9 mm i n long axis (603:35). Small bilateral level 1A lymph nodes are also seen (603:45). None of these lymph nodes demonstrate necrosis or enlarged b y size criteria and are nonspecific. Lower cervical lymph nodes: Small left l evel 3/4 lymph node are nonspecific, for example one measures 7 mm (603:54). Extra dawna lymph node extension:None ob served on imaging. The left submandibular gland is deformed with irregular contour anterior inferiorly and loss of fascial planes in this region (603:38). Invasion into this region is possible. The above-mentioned heterogeneous mass w hich is these midline in the submental region, invading the left diga stric and left mylohyoid. The left sublingual space and neurovascular bundl e in this region is also involved. The remaining extrinsic and intrinsic mu scles of the tongue are relatively spared. Symmetric soft tissue is noted in the na sopharynx, oropharynx and hypopharynx. The larynx is unremarkable. The thyroid gland is unremarkable. The parotid and left submandibular gland s are within normal limits. A large retention cyst is noted in the r ight maxillary sinus. Mild mucosal thickening is seen in the left maxillary sinus. The remaining paranasal sinuses and mastoid air cells are clear. Marked left-sided nasal septal deviation is noted. Emphysematous changes are seen in the garfield ngs bilaterally including a partially calcified plaque in the left u pper lobe of the lung. IMPRESSION Large destructive mass is seen involving the left hemimandible, with possible origins in the buccal or gingiv al mucosa. 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 The above-mentioned mass significantly e rodes the left mandible with invasion of the overlying skin and small amount of extension into the left anterior masseter and the left inferior medial pterygoid. The left sublingual space is involved with suspec travis involvement of the left submandibular gland, left mylohyoid and left anterior belly of the digastric. No skull base involvement is seen. The remaining details are discussed in the body the report. Small lymph nodes are seen in the neck b ilaterally. These are not enlarged by size criteria and do not demonstrate any morphological abnormality. Therefore these remain equivocal for met astasis. Performing Organization Address City/State/Zipcode Phone Number PACS/VR/DOSE CT SOFT TISSUE NECK W CONTRAST (11/23/2019 11:40 AM CDT) Specimen Impressions Performed At PACS/VR/DOSE Large destructive mass is seen involving the left hemimandible, with possible origins in the buccal or gingival mucosa. 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 The above-mentioned mass significantly e rodes the left mandible with invasion of the overlying skin and small amount of ext ension into the left anterior masseter and the left inferior medial pterygoid. The left sublingual space is involved with suspec travis involvement of the left submandibular gland, left mylohyoid and left anterior belly of the digastric. No skull base involvement is seen. The remaining details are discussed in the body the report. Small lymph nodes are seen in the neck bilaterally. Th dimitrios are not enlarged by size criteria and do not demonstrate any morphological abnormality. Therefore these remain equivocal for metastasis. 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 COMPARISON: None. FINDINGS: Primary mass size and location: Large he terogenous mass centered in the left mandibular body, could be arising f rom the changes are more buccal mucosa. The mass measures approximately 5.8 x 7.2 cm (14:31). Mandible or maxillary invasion:Yes, ther e is significant erosion and destruction of the left parasymphyseal r egion, left mandibular body and angle. Maxillary sinus or skin of the face skin invasion: The re is invasion of the skin in the left perimandibular/submandibular region ( 14:20). The maxillary sinus invasion is seen. Core Shaper Top space invasion:The left anter ior masseter muscle is involved. The most inferior aspect of the medial mild pterygoid abuts the mass like region and infiltration into this locati on is possible. Pterygoid plate/skull base invasion:None . Internal carotid artery involvement/inva mamie:None. Upper cervical lymph nodes: Small lymph nodes are seen in the level 1 and 2 bilaterally. For example a right level 1 B lymph node measures 8 mm and a left level 2A lymph node measures 9 mm i n long axis (603:35). Small bilateral level 1A lymph nodes are also seen (603:45). None of these lymph nodes demonstrate necrosis or enlarged b y size criteria and are nonspecific. Lower cervical lymph nodes: Small left l evel 3/4 lymph node are nonspecific, for example one measures 7 mm (603:54). Extra danwa lymph node extension:None ob served on imaging. The left submandibular gland is deformed with irregular contour anterior inferiorly and loss of fascial planes in this region (603:38). Invasion into this region is possible. The above-mentioned heterogeneous mass w hich is these midline in the submental region, invading the left digastric and left mylohyoid. The left sublingual space and neurovascular bundle in this noemí on is also involved. The remaining extrinsic and intrinsic muscles of the t ongue are relatively spared. Symmetric soft tissue is noted in the na sopharynx, oropharynx and hypopharynx. The larynx is unremarkable. The thyroid g land is unremarkable. The parotid and left submandibular gland s are within normal limits. A large retention cyst is noted in the right maxillary sinus. Mild mucosal thickening is seen in the left maxillary sinus. The remaining paranasal sinuses and mastoid air cells are clear. Marked left-sided nasal septal deviation is noted. Emphysematous changes are seen in the garfield ngs bilaterally including a partially calcified plaque in the left u pper lobe of the lung. 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 COMPARISON: None. FINDINGS: Primary mass size and location: Large he terogenous mass centered in the left mandibular body, could be arising f rom the changes are more buccal mucosa. The mass measures approximately 5.8 x 7.2 cm (14:31). Mandible or maxillary invasion:Yes, ther e is significant erosion and destruction of the left parasymphyseal r egion, left mandibular body and angle. Maxillary sinus or skin of the face skin invasion: There is invasion of the skin in the left perimandibular/submandi bular region (14:20). The maxillary sinus invasion is seen. Core Shaper Top space invasion:The left anter ior masseter muscle is involved. The most inferior aspect of the medial m ild pterygoid abuts the mass like region and infiltration into this locati on is possible. Pterygoid plate/skull base invasion:None . Internal carotid artery involvement/inva mamie:None. Upper cervical lymph nodes: Small lymph nodes are seen in the level 1 and 2 bilaterally. For example a right level 1 B lymph node measures 8 mm and a left level 2A lymph node measures 9 mm i n long axis (603:35). Small bilateral level 1A lymph nodes are also seen (603:45). None of these lymph nodes demonstrate necrosis or enlarged b y size criteria and are nonspecific. Lower cervical lymph nodes: Small left l evel 3/4 lymph node are nonspecific, for example one measures 7 mm (603:54). Extra dawna lymph node extension:None ob served on imaging. The left submandibular gland is deformed with irregular contour anterior inferiorly and loss of fascial planes in this region (603:38). Invasion into this region is possible. The above-mentioned heterogeneous mass w hich is these midline in the submental region, invading the left diga stric and left mylohyoid. The left sublingual space and neurovascular bundl e in this region is also involved. The remaining extrinsic and intrinsic mu scles of the tongue are relatively spared. Symmetric soft tissue is noted in the na sopharynx, oropharynx and hypopharynx. The larynx is unremarkable. The thyroid gland is unremarkable. The parotid and left submandibular gland s are within normal limits. A large retention cyst is noted in the r ight maxillary sinus. Mild mucosal thickening is seen in the left maxillary sinus. The remaining paranasal sinuses and mastoid air cells are clear. Marked left-sided nasal septal deviation is noted. Emphysematous changes are seen in the garfield ngs bilaterally including a partially calcified plaque in the left u pper lobe of the lung. IMPRESSION Large destructive mass is seen involving the left hemimandible, with possible origins in the buccal or gingiv al mucosa. 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 The above-mentioned mass significantly e rodes the left mandible with invasion of the overlying skin and small amount of extension into the left anterior masseter and the left inferior medial pterygoid. The left sublingual space is involved with suspec travis involvement of the left submandibular gland, left mylohyoid and left anterior belly of the digastric. No skull base involvement is seen. The remaining details are discussed in the body the report. Small lymph nodes are seen in the neck b ilaterally. These are not enlarged by size criteria and do not demonstrate any morphological abnormality. Therefore these remain equivocal for met astasis. Performing Organization Address City/State/Zipcode Phone Number PACS/VR/DOSE CBC WITH DIFFERENTIAL (11/23/2019 10:25 AM CDT) Pathologist Sig nature WBC 18.97 (H) 4.20 - 10.70 [facility] 10*3/L [facility] RBC 4.26 4.26 - 5.52 [facility] 10*6/L [facility] HGB 13.8 12.2 - 16.4 [facility] g/dL [facility] HCT 39.8 38.4 - 49.3 % [facility] MCV 93.4 81.7 - 95.6 fL [facility] MCH 32.4 26.1 - 32.7 pg [facility] MCHC 34.7 31.2 - 35.0 [facility] g/dL [facility] RDW-SD 46.1 38.5 - 51.6 fL [facility] RDW-CV 13.6 12.1 - 15.4 % [facility] PLT 543 (H) 150 - 328 [facility] 10*3/L [facility] MPV 8.5 (L) 9.8 - 13.0 fL [facility] NRBC/100 WBC 0.0 0.0 - 10.0 /100 [facility] WBCs [facility] NRBC x10^3 <0.01 10*3/L [facility] GRAN MAT (NEUT) % 79.1 % [facility] IMM GRAN % 0.70 % [facility] LYMPH % 11.8 % [facility] MONO % 6.3 % [facility] EOS % 1.6 % [facility] BASO % 0.5 % [facility] GRAN MAT x10^3(ANC) 15.02 (H) 1.99 - 6.95 [facility] 10*3/uL [facility] IMM GRAN x10^3 0.14 (H) 0.00 - 0.06 [facility] 10*3/uL [facility] LYMPH x10^3 2.23 1.09 - 3.23 [facility] 10*3/uL [facility] MONO x10^3 1.19 (H) 0.36 - 1.02 [facility] 10*3/uL [facility] EOS x10^3 0.30 0.06 - 0.53 [facility] 10*3/uL [facility] BASO x10^3 0.09 0.01 - 0.09 [facility] 10*3/uL [facility] Specimen Blood - HAND, LEFT Performing Organization Address City/State/Zipcode Phone Number [facility] CLIA: [id number], [address] [place], [place] [address] Prothrombin Time (PT) / INR (11/23/2019 10:25 AM CDT) PROTIME PATIENT 12.3 12.0 - 14.7 [facility] LABORATORY INR 1.0Comment: Normal [facility] INR <1.1; Warfarin [facility] Therapeutic range LABORATORY 2.0 to 3.0 or 2.5 to 3.5, depending upon the indications. Specimen Blood - HAND, LEFT Performing Organization Address [facility] Phone Number [facility] CLIA: [id number], [address] [place] [address] aPTT (11/23/2019 10:25 AM CDT) Pathologist Sig nature APTT Patient 28 23 - 38 Seconds [facility] Specimen Blood - HAND, LEFT Narrative Performed At [facility] patient population mean normal value [facility] for aPTT is 30 seconds. Performing Organization Address [facility] Phone Number [facility] CLIA: [id number], [address] [place] [address] Hepatic Function Panel (ALB, T.PRO, BILI T, BU/BC, ALT, AST, ALK PHOS) (11/23/2019 10:25 AM CDT) Pathologist Sig nature TOTAL BILI 0.4 0.1 - 1.1 mg/dL [facility] BILI UNCON 0.5 0.1 - 1.1 mg/dL [facility] BILI CONJ 0.0 0.0 - 0.3 mg/dL [facility] T PROTEIN 8.4 (H) 6.3 - 8.2 g/dL [facility] ALBUMIN 4.0 3.5 - 5.0 g/dL [facility] ALK PHOS 137 (H) 34 - 122 U/L [facility] ALTv 9 5 - 50 U/L [facility] AST(SGOT) 22 13 - 40 U/L [facility] Specimen Blood - HAND, LEFT Performing Organization Address City/[facility] Phone Number [facility] CLIA: [id number], [address] [place] [address] Basic Metabolic Panel (NA, K, CL, CO2, GLUCOSE, BUN, CREATININE, CA) (11/23/2019 10:25 AM CDT) NA 132 (L) 135 - 145 [facility] mmol/L [facility] K 4.4 3.5 - 5.0 [facility] mmol/L [facility] CL 98 98 - 108 mmol/L [facility] CO2 TOTAL 26 23 - 31 mmol/L [facility] AGAP 8 2 - 16 [facility] BUN 9 7 - 23 mg/dL [facility] GLUCOSE 106 70 - 110 mg/dL [facility] CREATININE 0.51 (L) 0.60 - 1.25 [facility] mg/dL [facility] CALCIUM 10.0 8.6 - 10.6 [facility] mg/dL [facility] eGFR Calculation 167.5 mL/min/1.73m2 [facility] ([facility] LAB[facility] Nepalese) eGFR Calculation 203.0 mL/min/1.73m2 [facility] () [facility] Specimen Blood - HAND, LEFT Narrative Performed At Association of Glomerular Filtration Rate (GFR) [facility] and Staging of Kidney Disease* + + +- + | GFR (mL/min/1.73 m2) | With Kidney Damage | Without Kidney Damage + + +- + | >90 | Stage one | Normal + + +- + | 60-89 | Stage two | Decreased GFR + + +- + | 30-59 | Stage three | Stage three + + +- + | 15-29 | Stage four | Stage four + + +- + | <15 (or dialysis) | Stage five | Stage five + + +- + *Each stage assumes the associated GFR level has been in effect for at least three months. Stages 1 to 5, with or without kidney disease, indicate chronic kidney disease. Notes: Determination of stages one and two (with eGFR >59mL/min/1.73 m2) requires estimation of kidney damage for at least three months as defined by structural or functional abnormalities of the kidney, manifested by either: Pathological abnormalities or Markers of kidney damage (including abnormalities in the composition of the blood or urine or abnormalities in imaging tests). Performing Organization Address City/State/Zipcode Phone Number [facility] CLIA: [id number], [address] [place], [place] [address] documented in this encounter Visit Diagnoses Diagnosis Facial mass - Primary Jaw mass Swelling, mass, or lump in head and neck Cancer Other malignant neoplasm without specifi cation of site E44.0 Moderate protein calorie malnutrit ion Malnutrition of moderate degree documented in this encounter Administered Medications Medication Order MAR Action Action Date Dose Rate Site acetaminophen (TYLENOL) tablet Given 11/24/2019 2:26 AM CDT 650 mg 650 mg 650 mg, Oral, Q6HPRN, Starting Wed11/23/19 at 1939, Until Discontinued, Routine, Pain (scale 1-3) ampicillin-sulbactam (UNASYN) 1.5 g in NaCl Given 11/24/2019 2:01 PM CDT 1.5 g 0.9% (NS) 100 mL MINI-BAG 1.5 g, IV Piggyback, Q6H ABX, First dose on Wed11/23/19 at 2100, Until Discontinued, 100 mL, Reason for Anti-Infective: Empiric Therapy for Suspected Infection, Empiric Therapy Site: [facility], Duration of therapy: 72 hours Given 11/24/2019 9:20 AM CDT 1.5 g Given 11/24/2019 2:17 AM CDT 1.5 g gabapentin (NEURONTIN) capsule 300 mg Given 11/24/2019 2:01 PM CDT 300 mg 300 mg, Oral, TID, First dose on Wed11/24/19 at 1145, Until Discontinued, Routine Given 11/24/2019 11:49 AM CDT 300 mg heparin (porcine) injection Given 11/24/2019 2:01 PM CDT 5,000 Units Abdomen-SC 5,000 Units 5,000 Units, Subcutaneous, Q8H, First dose on Wed11/23/19 at 2200, Until Discontinued, Routine Given 11/24/2019 5:24 AM CDT 5,000 Units Abdo men-SC Given 11/23/2019 9:07 PM CDT 5,000 Units Abdo men-SC HYDROcodone-acetaminophen (NORCO) 10-325 mg tablet 1 tablet 1 tablet, Oral, Q6HPRN, Starting 11/23 at 1135, Until Discontinued, Routine, Pain (scale 4-6) ketorolac (TORADOL) tablet 10 mg Given 11/24/2019 11:49 AM CDT 10 mg 10 mg, Oral, Q6HPRN, Starting Wed11/24/19 at 1136, Until Discontinued, Routine, Pain (scale 7-10) ondansetron (ZOFRAN (PF)) injection 4 mg 4 mg, Slow IV Push, Q6HPRN, Starting Wed11/23/19 at 193 9, Until Discontinued, Routine, Nausea and Vomiting (N/V) Medication Order MAR Action Action Date Dose Rate Site FENTanyl PF (SUBLIMAZE (PF)) Given 11/23/2019 5:07 PM CDT 25 mc g injection 25 mcg 25 mcg, Slow IV Push, ONCE, 1 dose, Natalia 11/23/19 at 1815, STAT iohexol (OMNIPAQUE 350 BULK-100 mL) injection Given 11:34 AM CDT 80 mL 80 mL 80 mL, Intravenous, ONCE, 1 dose, Natalia 11/23/19 at 1145, Routine magnesium sulfate in water 4 gram/50 mL (8 %) New Bag 9:20 AM CDT 4 g IV Piggyback 4 g 4 g, IV Piggyback, ONCE, 1 dose, 11/24/19 at 0930, Routine ondansetron (ZOFRAN (PF)) injection 4 mg Given 11/23/2019 5:07 PM CDT 4 mg 4 mg, Slow IV Push, ONCE, 1 dose, Natalia 11/23/19 at 1815, SHERWIN traMADol (ULTRAM) tablet 50 mg Given 11/23/2019 9:07 PM CDT 50 mg 50 mg, Oral, Q8HPRN, Starting Natalia 11/23/19 at 1939, Until Wed11/24/19 at 1139, Routine, Pain (scale 4-6) documented in this encounter Insurance Payer Benefit Plan / Subscriber ID Effective Dates Phone Addre ss Type Group BCBS OF HIM BCBS BLUE [id number] 2019-[place] [phone] [address] [facility] t [id number] [place] [phone] (Home) KERRY VENTURA [phone] [id number] (Work) documented as of this encounter
--- OUTSIDE RECORDS SUMMARY | 2019-12-01 10:32 | XMS REPORT | Summary of Care ---
:1960 Author Organization [facility] Address [address] [place] [id number] Care Team Providers Name Role Phone Pcp, Does Not Have A Primary Care Provider Reason for Visit Reason Comments Transition Of Care Encounter Details Date Type Department Care Team Description 11/27/2019 Transition of Care [facility] Natalie Mauricio Tr [facility]- RN [address] [phone] Allergies No Known Allergiesdocumented as of this encounter (statuses as of 11/27/2019) Medications Medication Sig Dispensed Refills Start Date [...] as of this encounter (statuses as of 11/27/2019) Active Problems Problem Noted Date E44.0 Moderate protein calorie malnutrition 11/24/2019 Cancer 11/23/2019 documented as of this encounter (statuses as of 11/27/2019) Social History Tobacco Use Types Packs/Day Years Used Date Former Smoker Smokeless Tobacco: Never Used Financial Resource Strain Answer Date Recorded How [...] of this encounter Last Filed Vital Signs Not on filedocumented in this encounter Plan of Treatment Health Maintenance Due Date Last Done Comments [...] Ended) 2020 documented as of this encounter Results Not on filedocumented in this encounter Insurance Payer Benefit Plan / Subscriber ID Effective Dates Phone Addre ss Type Group BCBS OF HIM BCBS BLUE [id number] 2019-[place] [phone] [address] [facility] t [id number] [place] [address] documented as of this encounter
--- NOTE | 2019-12-01 11:36 | ER ---
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 Past few days it has ca1 been swelling up to the cheek and under the L eye. Been giving vision problems and soreness on the L ear. Has not undergone chemo and radiation yet. Coronavirus screen: Proceed with normal triage. Patient denies a cough. Patient denies shortness of breath or difficulty breathing. Patient denies measured and/or subjective temperature greater than 100.4F prior to today's visit. Patient denies travel on a cruise ship or to a country the [facility] currently lists as an affected area. Patient denies contact with known and/or suspected case of COVID-19. Ebola Screen: Patient negative for fever greater than or equal to 101.5 degrees Fahrenheit, and additional compatible Ebola Virus Disease symptoms Patient denies exposure to infectious person. Patient denies travel to an Ebola-affected area in the 21 days before illness onset. No symptoms or risks identified at this time. Initial Sepsis Screen: Does the patient meet any 2 criteria? No. Patient's initial sepsis screen is negative. Does the patient have a suspected source of infection? No. Patient's initial sepsis screen is negative. Risk Assessment: Do you want to hurt yourself or someone else? Patient reports no desire to harm self or others. Onset of symptoms was December 01, 2019. 10:26 Method Of Arrival: Ambulatory ca1 10:26 Acuity: ROGER 3 ca1 Triage Assessment: 10:33 General: Appears in no apparent distress. comfortable, Behavior is calm, cooperative, ca1 appropriate for age. Pain:. Respiratory: Airway is patent Respiratory effort is even, unlabored, Respiratory pattern is regular, symmetrical. Historical: - Allergies: 10:33 No Known Allergies; ca1 - Home Meds: 10:33 ketorolac 10 mg Oral tab [Active]; gabapentin 300 mg oral cap [Active]; ca1 hydrocodone-acetaminophen 10-325 mg Oral tab [Active]; ondansetron HCl 4 mg Oral tab [Active]; Augmentin Oral [Active]; - PMHx: 10:33 Cancer of the Jaw; ca1 - PSHx: 10:33 None; ca1 - Immunization history:: Adult Immunizations up to date. - Social history:: Smoking status: Patient/guardian denies using tobacco, Stopped _ months ago 5 Patient uses Patient/guardian denies using alcohol, street drugs, The patient lives with family, . - Family history:: not pertinent. Screenin:00 Abuse screen: Denies threats or abuse. Denies injuries from another. Nutritional bp screening: No deficits noted. Tuberculosis screening: No symptoms or risk factors identified. Fall Risk None identified. Assessment: 11:00 General: SEE TRIAGE NOTE. bp 11:30 Reassessment: PT CLEARED MSE, NO EMERGENT HEALTH ISSUES. bp Vital Signs: 10:26 BP 113 / 84; Pulse 79; Resp 17; Temp 97.6(TE); Pulse Ox 95% ; Weight 57.61 kg (R); ca1 Height 5 ft. 6 in. (167.64 cm) (R); Pain 10/10; 11:31 BP 118 / 79; Pulse 71; Resp 17; Temp 97.8; Pulse Ox 95% ; bp 10:26 Body Mass Index 20.50 (57.61 kg, 167.64 cm) ca1 ED Course: 10:12 Patient arrived in ED. ag5 10:15 Levy Tijerina DO is Private Physician. ag5 10:30 Triage completed. ca1 10:33 Arm band placed on right wrist. ca1 10:53 Todd Buckley RN is Primary Nurse. bp 10:57 Kar Saunders MD is Attending Physician. ma2 11:00 Patient has correct armband on for positive identification. Bed in low position. Call bp light in reach. Side rails up X2. 11:31 No provider procedures requiring assistance completed. Patient did not have IV access bp during this emergency room visit. Administered Medications: No medications were administered Outcome: 11:31 Medical screen evaluation completed per provider. Patient declined treatment. bp 11:31 Condition: stable 11:31 Discharge instructions given to patient, Instructed on discharge instructions, follow up and referral plans. Demonstrated understanding of instructions, follow-up care. 11:36 Discharge ordered by . ma2 11:47 Patient left the ED. bp Signatures: Todd Buckley, RN RN bp Kar Saunders MD MD ma2 AcEstefania power RN RN ca1 Kiley Glover ag5
--- NOTE | 2019-12-01 11:36 | EDPHYS ---
Physician Documentation [facility] Name: Dao Davalos Age: 59 yrs Sex: Male : 1960 Arrival Date: 12/01/2019 Time: 10:12 Bed 18 Private MD: [facility] ED Physician Kar Saunders HPI: 11/30 11:32 This 59 yrs old Male presents to ER via Ambulatory with complaints of Vision Problem, ma2 Eye Swelling, Other, Difficulty Hearing. 11:32 caused by cancer. Onset: The symptoms/episode began/occurred gradually, 6 month(s) ago. ma2 Associated signs and symptoms: Pertinent negatives: dizziness, fever, runny nose. Severity of symptoms: At their worst the symptoms were very mild in the emergency department the symptoms have resolved. The patient has not experienced similar symptoms in the past. Historical: - Allergies: 10:33 No Known Allergies; ca1 - Home Meds: 10:33 ketorolac 10 mg Oral tab [Active]; gabapentin 300 mg oral cap [Active]; ca1 hydrocodone-acetaminophen 10-325 mg Oral tab [Active]; ondansetron HCl 4 mg Oral tab [Active]; Augmentin Oral [Active]; - PMHx: 10:33 Cancer of the Jaw; ca1 - PSHx: 10:33 None; ca1 - Immunization history:: Adult Immunizations up to date. - Social history:: Smoking status: Patient/guardian denies using tobacco, Stopped _ months ago 5 Patient uses Patient/guardian denies using alcohol, street drugs, The patient lives with family, . - Family history:: not pertinent. ROS: 11:32 Constitutional: Negative for fever, chills, and weight loss. ma2 11:32 All other systems are negative. Exam: 11:32 Visual Acuity: Visual acuity is within normal limits. ma2 11:32 Constitutional: This is a well developed, well nourished patient who is awake, alert, and in no acute distress. Head/Face: Normocephalic, atraumatic. Eyes: Pupils equal round and reactive to light, extra-ocular motions intact. Lids and lashes normal. Conjunctiva and sclera are non-icteric and not injected. Cornea within normal limits. Periorbital areas with no swelling, redness, or edema. ENT: left mandibular tumer 4 x4 cm, no redness or warmth or tenderness, Nares patent. No nasal discharge, no septal abnormalities noted. Tympanic membranes are normal and external auditory canals are clear. Oropharynx with no redness, swelling, or masses, exudates, or evidence of obstruction, uvula midline. Mucous membranes moist. Neck: Trachea midline, no thyromegaly or masses palpated, and no cervical lymphadenopathy. Supple, full range of motion without nuchal rigidity, or vertebral point tenderness. No Meningismus. Chest/axilla: Normal chest wall appearance and motion. Nontender with no deformity. No lesions are appreciated. Cardiovascular: Regular rate and rhythm with a normal S1 and S2. No gallops, murmurs, or rubs. Normal PMI, no JVD. No pulse deficits. Respiratory: Lungs have equal breath sounds bilaterally, clear to auscultation and percussion. No rales, rhonchi or wheezes noted. No increased work of breathing, no retractions or nasal flaring. Abdomen/GI: Soft, non-tender, with normal bowel sounds. No distension or tympany. No guarding or rebound. No evidence of tenderness throughout. Neuro: Awake and alert, GCS 15, oriented to person, place, time, and situation. Cranial nerves II-XII grossly intact. Motor strength 5/5 in all extremities. Sensory grossly intact. Cerebellar exam normal. Normal gait. Vital Signs: 10:26 BP 113 / 84; Pulse 79; Resp 17; Temp 97.6(TE); Pulse Ox 95% ; Weight 57.61 kg (R); ca1 Height 5 ft. 6 in. (167.64 cm) (R); Pain 10/10; 11:31 BP 118 / 79; Pulse 71; Resp 17; Temp 97.8; Pulse Ox 95% ; bp 10:26 Body Mass Index 20.50 (57.61 kg, 167.64 cm) ca1 MDM: 10:57 Patient medically screened. ma2 11:32 Differential diagnosis: Corneal abrasion of Corneal ulcer of Foreign body in ma2 Ultraviolet keratitis in. Data reviewed: vital signs, nurses notes. Counseling: I had a detailed discussion with the patient and/or guardian regarding: the historical points, exam findings, and any diagnostic results supporting the discharge/admit diagnosis, the presence of at least one elevated blood pressure reading (>120/80) during this emergency department visit, the need for outpatient follow up. Response to treatment: the patient's symptoms have markedly improved after treatment. Administered Medications: No medications were administered Disposition: 12/01/19 11:36 Discharged to Home. Impression: Mandibular hyperplasia - cancer. - Condition is Stable. - Medication Reconciliation Form, Thank You Letter, Antibiotic Education, Prescription Opioid Use form. - Follow up: Private Physician; When: Tomorrow; Reason: Continuance of care. Signatures: Todd Buckley RN RN Kar Ac MD MD ma2 Estefania Palacios RN RN ca1 Corrections: (The following items were deleted from the chart) 11:47 11:36 12/01/2019 11:36 Discharged to Home. Impression: Mandibular hyperplasia - cancer. bp Condition is Stable. Forms are Medication Reconciliation Form, Thank You Letter, Antibiotic Education, Prescription Opioid Use. Follow up: Private Physician; When: Tomorrow; Reason: Continuance of care. ma2
[2019-12-01 11:53] VITALS: O2SAT 95
[2019-12-01 11:54] VITALS: BP 118/79; TEMP 97.8
== END 2019-12-01 11:47 | disposition home or self-care (01) ==
LOC: ER 10:09
DX: C41.1 Malignant neoplasm of mandible (principal)
CPT/HCPCS: 99281

== ENCOUNTER 2020-01-03 13:45 | Day surgery (SDC) | payer BC ==
[2020-01-03] MEDS ORDERED: propofoL 200 MG/20 ML VIAL IV ONE (14:24)
[2020-01-03] MEDS ORDERED: LIDOCAINE 1% MPF 5 ML VIAL ONE (14:24)
[2020-01-03] MEDS ORDERED: CEFAZOLIN/SWI 1gm 1 GM/10 ML SYR ONE (14:26)
[2020-01-03] MEDS ORDERED: Ringers Lactate 1,000 ML IV ONE (14:27)
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
--- OUTSIDE RECORDS SUMMARY | 2020-01-03 14:28 | XMS REPORT | Continuity of Care Document ---
:1960 Author Organization [facility] [place] t Address [address] [place] [address] Care Team Providers Name Role Phone Doctor Unassigned, Name Attending Clinician Unavailable Hang DEVRIES M Attending Clinician Neil YOUNG Attending Clinician Diana [...] 00:00: [place] M84.5XA 00 Z51.0 Active 10/02/2019 [facility] HOSPITAL Diagnosis Active 2019-07-18 M emoria F/U -14 08:34:00 l HOSPITAL 00:00: [place] n F/U 00 Active 07/04/2019 [facility] MULTIPLE Diagnosis Active 2019-07-07 M emoria RIB FX - 22:27:00 l MULTIPLE 00:00: [place] RIB FX 00 Active 06/27/2019 [facility] STERNAL FX Diagnosis Active 2019-06-27 Memoria 07 23:35:00 l STERNAL 00:00: [place] FX 00 Active 0 [facility] Closed Closed Problem Active Univers nondisplac nondisplac [...] FOR RIB, UNSP SIDE, INIT FOR Active [facility] Allergies, Adverse Reactions, Alerts Allergy Allergy Status Severity Reaction(s) Onset Inactive Treating Comm ents Source Name Type Date Date Clinician No Known No Known Active Memori a Medicati Medicati l on on Facundo Allergie Allergie s s Social History Social Habit Start Date Stop Date Quantity Comments Source Social History 2019-06-29 2019-06-29 [facility] 00:58:35 00:58:35 Smoking Status Start Date Stop Date Source Never smoked tobacco (finding) [facility] Physicians Medications Ordered Filled Start Stop Current Ordering Indication Dosage Frequency Signature Comments Components Source Medication Medication Date Date Medication? Clinician (SIG) Name Name traMADol traMADol Yes ESTELITA ONE TABLET Univers HCl - 50 MG HCl - 50 MG 1-27 JOSE LUIS SNACK STEWARDESS EVERY SIX ity of Oral Tablet Oral Tablet 00:00: HOURS PRN 00 PAIN Physici ans Gabapentin Gabapentin Yes ESTELITA Q0.3333D TAKE 1 Univers 300 MG Oral 300 MG Oral 1-27 JOSE LUIS SNACK STEWARDESS CAPSULE 3 ity of Capsule Capsule 00:00: TIMES [place] 00 DAILY. Physici ans Iohexol 2020-0 No 200 mL, Memoria 07-03 Route: l 22:59: IVP, Drug Form: SOLN, Dosing Weight 70.455, kg, ONCALL, STAT, Start date: 07/03/19 16:59:00 TAPE RECORDER MECHANIC, Duration: 1 doses or times, Dose = 2.2ml/kg, Max dose = 100ml -- "To be infused by Radiology Staff ONLY" gabapentin 2019- Yes 300 mg = 1 M emoria 300 MG Oral -13 cap, PO, l Capsule 16:32: Q8Hnow, # Alicia nn 00 60 caplet, 0 Refill(s) Methocarbam 0 Yes 1,500 mg = Memoria ol 750 MG 13 2 tab, PO, l Oral Tablet 16:32: TID, X 7 He rmann [Robaxin] 00 day, # 42 tab, 0 Refill(s) tramadol 0 Yes 50 mg = 1 Enrike nelia hydrochlori -13 tab, PO, l de 50 MG 16:32: Q6H, PRN Alicia nn Oral Tablet 00 Pain Score 4-6, # 50 tab, 0 Refill(s) chlorhexidi 0 No Notes: Enrike nelia ne 1-10 (Same As: l gluconate 23:00: Peridex) Herm néo 1.2 MG/ML 00 Mouthwash [Peridex] Amoxicillin 0 No Notes: Enrike nelia 875 MG / 1-10 With food. l Clavulanate 18:00: (Same as: H ermann 125 MG Oral 00 Augmentin Tablet 875) [Augmentin 875-mg] propofol 0 No Route: IV, Mem oria (ANES) 1-10 Drug form: l 17:25: INJ, ONCE, Stop date: 06/30/19 11:25:00 TAPE RECORDER MECHANIC fentaNYL 2019-0 No Route: IV, Mem oria (ANES) 1-10 Drug form: l 17:25: INJ, ONCE, Stop date: 06/30/19 11:25:00 TAPE RECORDER MECHANIC glycopyrrol 2019-0 No Route: IV, Memoria ate (ANES) - Drug form: l 17:25: INJ, ONCE, Stop date: 06/30/19 11:25:00 TAPE RECORDER MECHANIC neostigmine 2020-0 No Route: IV, Memoria (ANES) 1-10 Drug form: l 17:25: INJ, ONCE, Stop date: 06/30/19 11:25:00 TAPE RECORDER MECHANIC ondansetron 2020-0 No Route: IV, Memoria (ANES) 1-10 Drug form: l 17:24: INJ, ONCE, Stop date: 06/30/19 11:24:00 TAPE RECORDER MECHANIC phenylephri 2019-0 No Route: IV, Memoria ne (ANES) 1-10 Drug form: l 17:04: INJ, ONCE, Stop date: 06/30/19 11:04:00 TAPE RECORDER MECHANIC lidocaine 2019-0 No Route: IV, Me moria (ANES) 1-10 Drug form: l 16:58: INJ, ONCE, Stop date: 06/30/19 10:58:00 TAPE RECORDER MECHANIC rocuronium 2019-0 No Route: IV, M emoria (ANES) 1-10 Drug form: l 16:58: INJ, ONCE, Stop date: 06/30/19 10:58:00 TAPE RECORDER MECHANIC dexamethaso 2019-0 No Route: IV, Memoria ne (ANES) 1-10 Drug form: l 16:58: INJ, ONCE, Stop date: 06/30/19 10:58:00 TAPE RECORDER MECHANIC ceFAZolin 2019-0 No Route: IV, Me moria (ANES) 1-10 Drug form: l 16:53: INJ, ONCE, Stop date: 06/30/19 10:53:00 TAPE RECORDER MECHANIC Hydromorpho 2019-0 No Notes: Enrike nelia ne 1-10 Same as l 16:42: Dilaudid Flumazenil 2019-0 No Notes: Memor ia 1-10 (Same as: l 16:42: Romazicon) Naloxone 2019-0 No Notes: Memoria 1-10 Same as l 16:42: Narcan Ondansetron 2019-0 No Notes: Enrike nelia 1-10 (Same as: l 16:42: Zofran) MEDICATION WASTE Product Size: 4 mg Product Wasted: ___ mg midazolam 2020-0 No Route: IV, Me moria (ANES) 1-10 Drug form: l 16:38: SOLN, [place] 00 ONCE, Stop date: 06/30/19 10:38:00 TAPE RECORDER MECHANIC Lactated 0 No Route: IV, Mem oria Ringers 1-10 Total l Injection 16:11: Volume: Alicia nn IV (ANES) 00 1,000, 1000 mL Start date: 06/30/19 10:11:00 TAPE RECORDER MECHANIC, Stop date: 06/30/19 11:11:00 TAPE RECORDER MECHANIC Docusate 2019-0 No Notes: Memoria Sodium 50 -10 (Same as l MG / 15:00: Senokot-S) sennosides, 00 Equiv. to NURSING HOME 8.6 MG Stacy-Colac Oral Tablet e. Isolyte S 2019-0 No Notes: Memori a PH 7.4 1- (Same as: l 1,000 mL 14:08: Isolyte S Herm noé 00 PH7.4, Normosol-R PH 7.4, Plasma-Lyt e A ) Lovenox 0 No Notes: Memoria 1- (Same as: l 00:00: Lovenox) Amlodipine 0 No Notes: Memor ia - (Same as: l 18:00: Norvasc) Albuterol 0 No Notes: SEE Me moria 0.83 MG/ML -09 RT l Inhalant 17:07: DOCUMENTAT Her johnson Solution 00 ION (Same as: Proventil) Oxycodone 0 No Notes: Memori a Hydrochlori 06-29 (Same as: l de 5 MG 17:07: Roxicodone Herm noé Oral Tablet 00 ) Morphine 0 No Notes: Memoria - (Same l 17:07: as:MORPhin Facundo e Sulfate) Folic Acid 0 No Notes: Memor ia 1- (Same as: l 15:00: Folvite) multivitami 2019-0 No Notes: Enrike nelia n 06-29 (Same l 15:00: as:Thera) WASTE: F/P - Black; E - Municipal Trash Bin Take with food. Thiamine 0 No Notes: Memoria 1- (Same As: l 15:00: Vitamin [place] 00 B1) Morphine 2020-0 No 4 mg, Memoria 06-28 Route: l 22:33: IVP, ONCE, [place] 00 kg, Start date: 06/28/19 16:33:00 TAPE RECORDER MECHANIC, Stop date: 06/28/19 16:33:00 TAPE RECORDER MECHANIC remove 2020-0 No Notes: Memoria patch - Remove l 22:00: patch 12 [place] 00 hours after applicatio n each day. Sodium 2020-0 No 1,000 mL, Memori a Chloride 06-28 Rate: 100 l 0.9% IV 15:10: ml/hr, [place] 1,000 mL + 00 Infuse M.V.I.-12 over: 10.1 10 mL Daily hr, Route: + folic IV, Total acid IV 1 Volume: mg Daily + 1,011.2, thiamine IV Start 1 date: 06/28/19 9:10:00 TAPE RECORDER MECHANIC, Duration: 1 doses or times, Stop date: 06/28/19 19:15:00 TAPE RECORDER MECHANIC, 0 Lidocaine 2019-0 No Notes: Memori a 0.05 MG/MG 06-28 Apply only l Transdermal 15:00: once for He rmann Patch 00 up to 12 hours in a 24-hour period (12 hours on and 12 hours off). (Same as: Lidoderm) "Remove old patch before applicatio n of new patch" Naproxen 0 No Notes: Memoria 06-28 (Same as: l 15:00: Naprosyn) [place] 00 Take with food. Thiamine 2019-0 No Notes: Memoria 06-28 (Same As: l 10:30: Vitamin [place] 00 B1) Lidocaine 0 No Notes: Memori a Hydrochlori 06-28 Apply only l de 0.05 10:00: once for [place] n MG/MG 00 up to 12 Transdermal hours in a Patch 24-hour [Lidoderm] period (12 hours on and 12 hours off). (Same as: Lidoderm) "Remove old patch before applicatio n of new patch" Acetaminoph 0 No Notes: Max Memoria en 06-28 acetaminop l 09:04: hen 4000 Fac[place] 00 mg/day (4 gm/day). (Same as: Tylenol Extra Strength) gabapentin 0 No Notes: Memor ia 06-28 (Same as: l 09:04: Neurontin) Tramadol 2019-0 No Notes: Not Mem oria 06-28 to exceed l 09:04: 400mg/day. [place] (Same As: Ultram) Enoxaparin 2020-0 No 30), Memori a 06-28 Start l 09:00: date: Facundo 06/28/19 3:00:00 TAPE RECORDER MECHANIC, Duration: 30 day, Stop date: 07/27/19 15:00:00 TAPE RECORDER MECHANIC Isolyte S 2020-0 No 1,000 mL, Mem oria PH 7.4 1000 06-28 Rate: 100 l mL 08:15: ml/hr, Infuse over: 10 hr, Route: IV, Total Volume: 1,000, Start date: 06/28/19 2:15:00 TAPE RECORDER MECHANIC, Duration: 30 day, Stop date: 07/28/19 2:14:00 TAPE RECORDER MECHANIC ketAMINE 2019-0 No Notes: Memoria additive 06-28 (Same as: l 300 mg [17 07:21: keTALAR) Her johnson mg/hr] + 00 Total Premix volume in Diluent 30 mL Sodium syringe Chloride 0.9% 30 mL Lidocaine 2019-0 No 1 %, Memoria 06-28 Route: l 06:59: SUB-Q, [place] 00 ONCE, kg, Start date: 06/28/19 0:59:00 TAPE RECORDER MECHANIC, Stop date: 06/28/19 0:59:00 TAPE RECORDER MECHANIC Bupivacaine 2020-0 No 10 mL, Enrike nelia Hydrochlori 06-28 Route: l de 2.5 06:59: SUB-Q, kg, Alicia nn MG/ML 00 ONCE, Injectable STAT, Solution Start date: 06/28/19 0:59:00 TAPE RECORDER MECHANIC, Stop date: 06/28/19 0:59:00 TAPE RECORDER MECHANIC Albuterol 2019-0 No Notes: Memori a 0.833 MG/ML 06-28 (Same as: 06:00: Duoneb) [place] Ipratropium 00 [place] 0.167 MG/ML Inhalant Solution [DuoNeb] Ketamine 2019-0 No 20 mg, Memoria 06-28 Route: IV, l 05:58: ONCE, kg, [place] 00 Start date: 06/27/19 23:58:00 TAPE RECORDER MECHANIC, Stop date: 06/27/19 23:58:00 TAPE RECORDER MECHANIC Saline 2020-0 No Notes: Memoria Flush 0.9% -08 Same as: l 05:55: BD [place] Posiflush Sterile Isolyte S 2020-0 No 1,000 mL, Mem oria PH 7.4 1000 1-08 Rate: 125 l mL 05:55: ml/hr, [place] 00 Infuse over: 8 hr, Route: IV, Total Volume: 1,000, Priority: STAT, Start date: 06/27/19 23:55:00 TAPE RECORDER MECHANIC, Duration: 1 doses or times, Stop date: 06/28/19 7:54:00 TAPE RECORDER MECHANIC Vital Signs Vital Name Observation Time Observation Value Comments Source Systolic blood 2019-09-20 159 mm[Hg] [facility] pressure 10:00:00 [place] [facility] Diastolic blood 2019-09-20 89 mm[Hg] University o f pressure 10:00:00 [place] [facility] Heart Rate 2019-09-20 74 /min [facility] 10:00:00 [place] [facility] Body temperature 2019-09-20 97.2 [degF] [facility] 10:00:00 [place] [facility] Systolic blood 2019-08-11 143 mm[Hg] [facility] pressure 10:56:00 [place] [facility] Diastolic blood 2019-08-11 79 mm[Hg] University o f pressure 10:56:00 [place] [facility] Heart Rate 2019-08-11 80 /min [facility] 10:56:00 [place] [facility] Systolic blood 2019-07-17 139 mm[Hg] [facility] 13:25:00 Position: [place] [facility] Sitting Diastolic blood 2019-07-17 86 mm[Hg] Location: [facility] 13:25:00 Position: [place] [facility] Sitting Weight 2019-07-17 155 [lb_av] [facility] 13:25:00 [place] [facility] Body mass index 2019-07-17 25.02 kg/m2 University o f (BMI) [Ratio] 13:25:00 [place] [facility] Body temperature 2019-07-17 99 [degF] Method: [facility] 13::00 Tympanic [place] [facility] Heart Rate 2019-07-17 73 /min [facility] 13:25:00 [place] [facility] BP Systolic 2019-07-12 150 mm[Hg] [facility] 09:55:00 [place] [facility] BP Diastolic 2019-07-12 96 mm[Hg] [facility] 09:55:00 [place] [facility] Height 2019-07-12 66 [in_us] [facility] 09:55:00 [place] [facility] Weight 2019-07-12 155 [lb_av] [facility] 09:55:00 [place] [facility] Body Mass Index 2019-07-12 25.02 kg/m2 University o f Calculated 09:55:00 [place] [facility] Heart Rate 2019-07-12 68 /min [facility] 09:55:00 [place] [facility] Systolic (mm Hg) 2019-07-06 [facility] [...] rmann (F) 05:07:00 Height 2019-06-29 170.18 cm Brandy Pichardo n 14:01:00 Weight 2019-06-29 Brandy Pichardo n 14:01:00 BMI Calculated 2019-06-29 Brandy Agrawal noé 14:01:00 Procedures Procedure Date / Time Performed Performing Clinician Sourc e CT Chest w contrast 2019-10-03 00:00:00 [facility] [address] Tumor 2019-09-20 00:00:00 [place] [facility] [place] efcilus-srlbm-tjurz[place] [id number] [facility] Neck soft tissue w 2019-09-20 00:00:00 [facility] contrast [id number] Physicians [U] XRAY FOOT MIN 3 2019[facility] 3 2019-07-17 00:00:00 [facility] RIGHT [id number] Physicians Encounters Start End Encounter Admission Attending Care Care Encounter Source Date/Time Date/Time Type Type Clinicians Facility Department ID 2019-10-05 Inpatient [facility] [id number] [facility] H 16:43:31 2019-06-28 Inpatient E [facility] [id number] [facility] 03:05:00 2019-11-30 2019-11-30 Orders Doctor COLTON [id number] 00:00:00 00:00:00 Only Unassigned, LATHA [id number] [place] [facility] [id number] 2019-11-27 2019-11-27 Transition Jose Mauricio [id number] 00:00:00 00:00:00 of Care Natalie Cruz [id number] [place] [id number] 2019-11-23 2019-11-24 [facility] Ry Trejo [facility] [id number] 09:48:07 17:37:[address] [facility] [id number] Giselle Brink Clear [id number] [place] [id number] Hospital 109 ([facility]) 2019-09-20 2019-09-20 Appointmen VIKRAM MATSON & [id number] Univers 10:00:00 10:00:00 t; AMINA MATSON Maxillofmichael Arrington M.D.|DDS al Surgery Benny peña M.D.|DDS Physici ans 2019-08-30 2019-08-30 Appointmen YESICA [facility] Orthopedics [id number] Univers 08:45:00 08:45:00 t; PATRICIA ROBERT Trauma ity nataly [facility] 2019-08-11 2019-08-11 Appointmen HUYEN [facility] Oral & [id number] Univers 10:15:00 10:15:00 t; AMINA MATSON Maxillofaci Nury M.D.|DDS al Surgery Benny peña M.D.|[facility] Physici ans 2019-07-06 2019-08-04 Outpatient Du, [facility] [id number] Count includes the [facility] 09:11:00 23:59:00 Jason 00 Mtanios 2019-07-17 2019-07-17 Appointmen TRAUMACLINI [facility] General [id number] Univers 13:15:00 13:15:00 t; MD Porsche Surgery - ity of TRAUMACLIN [facility] MD ELVIRA [facility] Physici [facility] 2019-07-17 2019-07-17 Appointmen DIOR RODGERS, [facility] [id number] Univers 13:15:00 13:15:00 t; Digna RODGERS M.D. [facility] 2019-07-17 2019-07-17 Appointmen ERIC [facility] Orthopedics [id number] Univers 08:45:00 08:45:00 t; ADRIANA Trauma anuel [facility] ans Craig 2019-07-12 2019-07-12 Appointmen HUYEN [facility] Oral & [id number] Univers 10:00:00 10:00:00 t; AMINA MATSON Maxillofmichael Arrington M.D.|DDS al Surgery Benny peña M.D.|DDS Physici ans 2019-07-06 2019-07-06 Outpatient [facility] [id number] [facility] 09:11:00 09:11:00 2019-06-27 2019-07-03 Outpatient Aziza [facility] [id number] 23:33:00 20:22:00 Melvin Huff 00 2019-06-27 2019-06-27 Outpatient Aziza [facility] [id number] 23:28:00 23:28:00 Melvin Huff 07 Results Test Description Test Time Test Comments Results Result [facility] e Comments [U] XRAY FOOT MIN 2019-07-17 Images Univers ity of 3 VWS RIGHT [id number] 09:26:00 [place] Physicians this accession number. HEMATOLOGY 2019-07-02 70.4 Memorial 09:51:00 [place] HEMATOLOGY 2019-07-02 17.0 Memorial 09:51:00 [place] HEMATOLOGY 2019-07-02 8.4 Memorial 09:51:00 [place] HEMATOLOGY 2019-07-02 3.1 Memorial 09:51:00 [place] HEMATOLOGY 2019-07-02 1.1 Memorial 09:51:00 [place] HEMATOLOGY 2019-07-02 8.1 Memorial 09:51:00 [place] HEMATOLOGY 2019-07-02 2.0 Memorial 09:51:00 [place] HEMATOLOGY 2019-07-02 1.0 Memorial 09:51:00 [place] HEMATOLOGY 2019-07-02 0.4 Memorial 09:51:00 [place] HEMATOLOGY 2019-07-02 0.1 Memorial 09:51:00 [place] HEMATOLOGY 2019-07-02 1+ Memorial 09:51:00 *ABN*(07/02/19 [place] 3:51 AM) HEMATOLOGY 2019-07-02 11.5 Memorial 09:51:00 [place] HEMATOLOGY 2019-07-02 3.78 Memorial 09:51:00 [place] HEMATOLOGY 2019-07-02 13.1 Memorial 09:51:00 [place] HEMATOLOGY 2019-07-02 39.1 Memorial 09:51:00 [place] HEMATOLOGY 2019-07-02 103.3 Memorial 09:51:00 [place] HEMATOLOGY 2019-07-02 09:51:00 Test Item Value Reference Range Interpretation Comme nts MCH (test code = MCH) 34.8 pg 27.0-31.0 Memorial ApxzpvxSDXQVORNEO3910-10-71 09:51:0033.6[facility] HermannHEMATOLOGY 2019-07-02 09:51:0016.0[facility] CibioyjWTEPXGEWOJ2740-87-26 09:51:58312Oonbhkcp NnyasluGWBODLJLFW7157-15-34 09:51:007.4[facility] KdifevlZZXKLQLVQK1205-18-62 06:35:0011.9[facility] UvkldldJLOVRUHWAP3013-19-27 06:35:003.69[facility] [place] CJARRQALGV2196-93-53 06:35:0012.5[facility] VgesaiqBUDNFCJRET9315-77-48 06:35:00 37.9[facility]orial BclabkxDEZQEYTUDQ7749-27-53 06:35:01642.9[facility] HermannHEMATOLOGY 2019-07-01 06:35:00 Test Item Value Reference Range Interpretation Comments MCH (test code = MCH) 33.9 pg 27.0-31.0 Memorial MsqwsbjHHXKXQWBLZ3807-87-97 06:35:0032.9[facility] HermannHEMATOLOGY 2019-07-01 06:35:0015.7[facility] XvjrdouEGXZXRYGAE3902-24-22 06:35:71917Mvdztrct XbwstwzGJDVCGNGPP1776-17-51 06:35:007.9[facility] DxgtiprASECPCUDJC3788-23-05 06:35:0085.4[facility] RxdgfirKCMOVNPULJ8927-91-92 06:35:007.9[facility] [place] OSSYZUUYJW6989-21-09 06:35:006.2[facility] XbvtyefDBCRUQNYFU1425-74-04 06:35:000.1 Memorial DwvjazqKDJUJMJWDC5150-94-26 06:35:000.4[facility] HermannHEMATOLOGY 2019-07-01 06:35:0010.1[facility] IgozarpIQJSKVHZZC2109-29-46 06:35:000.9[facility] QomtosrLSEHZAJLTB6756-08-44 06:35:000.7[facility] TlyaabxZWUXIYGZHA8220-52-89 06:35:001+ *ABN*(07/01/19 12:35 AM)[facility] HermannActinomyces odontolyticus 2019-06-30 16:46:00Actinomyces odontolyticusMemorial HermannStreptococcus hmsaqswmq2710-83-26 16:46:00Streptococcus anginosusMemorial HermannHaemophilus ivrutlrcyqh3268-95-42 16:40:00Haemophilus hemolyticusMemorial HermannNeisseria hnpgriiz8303-28-20 16:40:00Neisseria subflavaMemorial HermannHEMATOLOGY 2019-06-30 09:05:0014.5[facility] SvvxrbcUWKNSKGZFL7404-90-97 09:05:003.81[facility] PipzajdIOFWGDTIEL2764-61-40 09:05:0013.1[facility] JbqwmnwIYTWPMJXJL5596-22-23 09:05:0039.2[facility] IcsqhswWDUDNCZEZT9085-56-25 09:05:91801.8[facility] [place] ISUDWHFRSD7094-46-65 09:05:00 Test Item Value Reference Range Interpretation Comments MCH (test code = MCH) 34.2 pg 27.0-31.0 Memorial BnsakctVNADTKNZHF2114-68-99 09:05:0033.3[facility] HermannHEMATOLOGY 2019-06-30 09:05:0015.7[facility] VjszqptWLBGEZOOGE9474-84-49 09:05:24780Hrrduwlm LkuknfkAYLBELTFJA7403-56-35 09:05:007.9[facility] XfakxipRNVVXIWIHJ5746-19-22 09:05:0076.5[facility] NozoitaYEJTWJLGUN0496-90-03 09:05:0011.2[facility] [place] HRCBFPBZGF2543-29-24 09:05:008.7[facility] SztkeuaHAXGRUKSIR3806-72-55 09:05:002.5 Memorial FncdthwDDYLJHXKJE7762-11-03 09:05:001.1[facility] HermannHEMATOLOGY 2019-06-30 09:05:0011.1[facility] KswtvjyTFFCMBFTMH5454-11-98 09:05:001.6[facility] WmpkvszVUTSJFQMBZ7509-46-69 09:05:001.3[facility] ZqxomppPJWDLXXVWD9900-50-13 09:05:000.4[facility] ByhfwdkFXTYANASCQ0506-53-23 09:05:000.2[facility] [place] AAIPZDWMMT2036-31-68 09:05:001+ *ABN*(06/30/19 3:05 AM)[facility] [place] YNRWSXHJHYBT8591-25-26 09:00:0013.0[facility] OymwwdaGVYPIYJDGPWQ0477-31-69 09:00:0080[facility] TqiniimZXFJWEDYIMYA9825-05-42 09:00:0013[facility] [place] VHWRZDEIIXMW8038-53-65 09:00:000.72[facility] UqwiagrWEENGRSCJNZD2014-55-30 09:00:69595Yztdxkdu GibzsiqONENWJPASWRA1921-73-61 09:00:004.0[facility] [place] UWSEHMMZZSZM4732-09-57 09:00:05584Lpopryph OxsbcybTOLSADUXTZSR4992-89-99 09:00:0023[facility] RoudozwWAPUQRRLEMZR4882-78-23 09:00:008.5[facility] [place] NOKYPCNBKOIP2051-26-52 09:00:64031Lbvqyddr JapoidaFURJXQOPAS6635-45-42 09:00:00 0.3[facility] UbcxbezSEUCEOEIXS2268-06-12 09:00:000.2[facility] HermannURINE AND PREVI0672-13-75 09:13:00Light Yellow *NA*(06/28/19 3:13 AM)[facility] AND ULFWG6473-02-26 09:13:00Clear (06/28/19 3:13 AM)[facility] AND IRHMU8712-23-76 09:13:00 Test Item Value Reference Range Interpretation Comments UA Spec Grav (test code = UA Spec 1.023 1 Grav) [facility] GLEMC5233-43-50 09:13:00 Test Item Value Reference Range Interpretation Comments UA pH (test code = UA pH) 7.0 1 5.0-8.0 [facility] THTKU6367-34-32 09:13:00Negative (06/28/19 3:13 AM) [facility] GYHLT9269-44-43 09:13:00Negative *NA*(06/28/19 3:13 AM) [facility] UTBUY0653-63-00 09:13:00Negative *NA*(06/28/19 3:13 AM) [facility] XCPXP3938-38-84 09:13:00Negative *NA*(06/28/19 3:13 AM) [facility] JBUAQ0987-02-47 09:13:00Negative (06/28/19 3:13 AM) [facility] HGWQA3576-69-86 09:13:00<1.0[facility]ann[facility] AND IRBUZ4743-38-42 09:13:00Negative (06/28/19 3:13 AM)[facility] AND QTLXS0604-65-85 09:13:00Negative (06/28/19 3:13 AM)[facility] STOOL 2019-06-28 09:13:00None Seen (06/28/19 3:13 AM)[facility] STOOL 2019-06-28 09:13:00<1[facility]annURINE AND TQKRR1105-40-50 09:13:00<1 [facility] [id number] 07:00:26Negative (06/28/19 1:00 AM) [facility] [id number] 06:08:33067Rzpspnih HermannCHEM PANEL 2019-06-28 06:08:005[facility]CHE[facility] [id number] 06:08:000.68[facility]CHE[facility] [id number] 06:08:78626Bmngkkrp HermannCHEM [id number] 06:08:003.4[facility]CHE[facility] [id number] 06:08:0098[facility] [id number] 06:08:0025[facility]annCHE[facility] [id number] 06:08:008.4 [facility] [id number] 06:08:10243Moxvfift HermannCHEM PANEL 2019-06-28 06:08:0014.4[facility]annCHE[facility] [id number] 06:08:001.6[facility] PittzawEHXNNAKYZH5301-34-61 06:08:00 Test Item Value Reference Range Interpretation Comments ACT (TEG) Rapid (test code = ACT (TEG) 97 s 86-118 Rapid) [facility]ty[facility]fdcANZFXIVKMS5301-07-23 06:08:00 Test Item Value Reference Range Interpretation Comments Split Point Rapid (test code = Split 0.3 min Point Rapid) [facility] SystemOfyyjyuEHXSCJJJJI2355-83-80 06:08:00 Test Item Value Reference Range Interpretation Comments R-time Rapid (test code = R-time 0.5 min 0.4-0.7 Rapid) [facility] SystemNebwlthEROWQISOII2465-09-01 06:08:00 Test Item Value Reference Range Interpretation Comments K-time Rapid (test code = K-time 1.1 min 0.6-2.3 Rapid) [facility] [id number] 06:08:00 Test Item Value Reference Range Interpretation Comments Angle Rapid (test code = Angle 76 degrees 64-80 Rapid) [facility] SystemVfwheugLKNNITEXDJ3118-83-43 06:08:00 Test Item Value Reference Range Interpretation Comments Max Amplitude Rapid (test code = Max 69 mm 52-71 Amplitude Rapid) [facility] SystemZokdmsbCCIUUXBTSU6181-92-13 06:08:0011.2[facility] 2019-06-28 06:08:000.0[facility]
[2020-01-03 14:54] LABS: Protime INR 1.13
[2020-01-03 15:04] LABS: BUN Blood Urea Nitrogen 10 mg/dL (7-18); Bicarbonate 27 mmol/L (21-32); Glucose Level 93 mg/dL (74-106); Sodium Level 132 mmol/L (136-145)
[2020-01-03 15:05] LABS: Potassium 4.1 mmol/L (3.5-5.1)
[2020-01-03 15:15] LABS: Basophils % 0.5 % (0-1.3); Hematocrit 34.1 % (39.6-49.0); Lymphocytes % 7.8 % (15.3-44.8); MPV 7.2 fL (7.6-11.3)
[2020-01-03 16:04] VITALS: TEMP 97.6
[2020-01-03 16:06] VITALS: BP 138/85; O2SAT 99
--- NOTE | 2020-01-27 01:17 | OP ---
Surgeon: Coy Mckeon MD Procedure Performed: Esophagogastroduodenoscopy with percutaneous endoscopic gastrostomy tube placem ent. 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 Plan For Anesthesia: Monitored anesthesia care. Complexity: Average. Technique: After obtaining informed consent from the patient and explaining risks and complications which include, but are not limited to bleeding, infection, perforation, and anesthesia complication, the patient was given a dose of cefazolin 1 g IV preop. Then, the anesthesia was given, scope was th en inserted into the mouth and carefully guided up until the second portion of the duodenum. After t he completion of the entire examination, diagnostic and therapeutic maneuvers, the scope and equipmen t were withdrawn and procedure terminated in a safe manner. Findings: Esophagus: No gross lesion seen in the oral esophagus. Stomach: Mild patchy erythema seen in the body and antrum. Biopsies taken. Duodenum: The mucosa appeared granular. Biopsies taken. Subsequently, attention was focused back on the stomach. The site of PEG placement was identified by one-to-one pressure as well as transillumination. After an adequate site was marked, the area was a nesthetized with lidocaine and with a pull guidewire technique, a 20-[place] [employer] PEG tub e under aseptic precaution was placed. The external bumper was around 3 cm. Post PEG placement, end oscopy revealed normal findings and good position, and no bleeding inside the stomach. Complications: None. Tolerance To Anesthesia: Excellent. Postoperative Diagnosis: Gastritis, status post percutaneous endoscopic gastrostomy tube placement. Plan: 1.Await pathology results. 2.Oral PPI can be started through PEG once feeding is started tomorrow. Please follow up postop PEG discharge instructions as have been given to you by our office. Also instructed the patient's famil y that because he is alert and oriented, he is going to experience some pain, but that is going to sl owly improve. Follow up in the GI clinic in 2 weeks. US/MODL Voice ID: [id number] Report ID: [id number]
== END 2020-01-03 16:10 | disposition home or self-care (01) ==
LOC: OR 13:45
PROVIDERS: ATTEND Internal Medicine Gastroenterology
PROC: 0DB98ZX Excision of Duodenum, Via Natural or Artificial Opening Endoscopic, Diagnostic (ICD-10-PCS; 2020-01-03)
PROC: 0DB68ZX Excision of Stomach, Via Natural or Artificial Opening Endoscopic, Diagnostic (ICD-10-PCS; 2020-01-03)
PROC: 0DH63UZ Insertion of Feeding Device into Stomach, Percutaneous Approach (ICD-10-PCS; principal; 2020-01-03 14:00)
DX: E44.1 Mild protein-calorie malnutrition (principal); R13.10 Dysphagia, unspecified; R62.7 Adult failure to thrive; K29.50 Unspecified chronic gastritis without bleeding; C03.1 Malignant neoplasm of lower gum; Z11.59 Encounter for screening for other viral diseases; Z79.899 Other long term (current) drug therapy; Z87.891 Personal history of nicotine dependence
CPT/HCPCS: 43246; 43239; 85025; 80048; 36415; 88312; 85610; 88305; 85730; J2704; J0690; J7120

== ENCOUNTER 2020-01-04 10:39 | Emergency (ER) | payer BC ==
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
--- OUTSIDE RECORDS SUMMARY | 2020-01-04 11:16 | XMS REPORT | Continuity of Care Document ---
:1960 Author Organization [facility] t Address [address] [place] [address] Care Team Providers Name Role Phone Doctor [...] 00:00: Facundo M84.5XA 00 Z51.0 Active 10/02/2019 [facility] Diagnosis Active 2019-07-18 M emoria F/U -14 08:34:00 l HOSPITAL 00:00: Marino n F/U 00 Active 07/04/2019 [facility] MULTIPLE Diagnosis Active 2019-07-07 M emoria RIB FX - 22:27:00 l MULTIPLE 00:00: [place] n RIB FX 00 Active 06/27/2019 [facility] STERNAL FX Diagnosis Active 2019-06-27 Memoria 06-27 23:35:00 l STERNAL 00:00: [place] FX 00 Active 0 [facility] Closed Closed Problem Active Univers nondisplac nondisplac [...] FOR RIB, UNSP SIDE, INIT FOR Active [facility] Allergies, Adverse Reactions, Alerts Allergy Allergy Status Severity Reaction(s) Onset Inactive Treating Comm ents Source Name Type Date Date Clinician No Known No Known Active Memori a Medicati Medicati l on on Facundo Allergie Allergie s s Social History Social Habit Start Date Stop Date Quantity Comments Source Social History 2019-06-29 2019-06-29 [facility] 00:58:35 00:58:35 Smoking Status Start Date Stop Date Source Never smoked tobacco (finding) [facility]icians Medications Ordered Filled Start Stop Current Ordering Indication Dosage Frequency Signature Comments Components Source Medication Medication Date Date Medication? Clinician (SIG) Name Name traMADol traMADol Yes ESTELITA ONE TABLET Univers HCl - 50 MG HCl - 50 MG 1-27 JOSE LUIS VOLUNTEER MANAGER EVERY SIX ity of Oral Tablet Oral Tablet 00:00: HOURS PRN 00 PAIN Physici ans Gabapentin Gabapentin Yes ESTELITA Q0.3333D TAKE 1 Univers 300 MG Oral 300 MG Oral 1-27 JOSE LUIS VOLUNTEER MANAGER CAPSULE 3 ity of Capsule Capsule 00:00: TIMES [place] 00 DAILY. Physici ans Iohexol 2020-0 No 200 mL, Memoria 07-03 Route: l 22:59: IVP, Drug Form: SOLN, Dosing Weight 70.455, kg, ONCALL, STAT, Start date: 07/03/19 16:59:00 PATENT CLERK, Duration: 1 doses or times, Dose = 2.2ml/kg, Max dose = 100ml -- "To be infused by Radiology Staff ONLY" gabapentin Yes 300 mg = 1 M emoria [...] noé 1.2 MG/ML 00 Mouthwash [Peridex] Amoxicillin 0 No Notes: Enrike nelia 875 MG / 1-10 With food. l Clavulanate 18:00: (Same as: H ermann 125 MG Oral 00 Augmentin Tablet 875) [Augmentin 875-mg] propofol 0 No Route: IV, Mem oria (ANES) 1-10 Drug form: l 17:25: INJ, ONCE, Stop date: 06/30/19 11:25:00 PATENT CLERK fentaNYL 2019-0 No Route: IV, Mem oria (ANES) 1-10 Drug form: l 17:25: INJ, ONCE, Stop date: 06/30/19 11:25:00 PATENT CLERK glycopyrrol 2019-0 No Route: IV, Memoria ate (ANES) -10 Drug form: l 17:25: INJ, ONCE, Stop date: 06/30/19 11:25:00 PATENT CLERK neostigmine 2020-0 No Route: IV, Memoria (ANES) 1-10 Drug form: l 17:25: INJ, ONCE, Stop date: 06/30/19 11:25:00 PATENT CLERK ondansetron 2020-0 No Route: IV, Memoria (ANES) 1-10 Drug form: l 17:24: INJ, ONCE, Stop date: 06/30/19 11:24:00 PATENT CLERK phenylephri 2020-0 No Route: IV, Memoria ne (ANES) 1-10 Drug form: l 17:04: INJ, ONCE, Stop date: 06/30/19 11:04:00 PATENT CLERK lidocaine 2019-0 No Route: IV, Me moria (ANES) 1-10 Drug form: l 16:58: INJ, ONCE, Stop date: 06/30/19 10:58:00 PATENT CLERK rocuronium 2019-0 No Route: IV, M emoria (ANES) 1-10 Drug form: l 16:58: INJ, ONCE, Stop date: 06/30/19 10:58:00 PATENT CLERK dexamethaso 2019-0 No Route: IV, Memoria ne (ANES) 1-10 Drug form: l 16:58: INJ, ONCE, Stop date: 06/30/19 10:58:00 PATENT CLERK ceFAZolin 2019-0 No Route: IV, Me moria (ANES) 1-10 Drug form: l 16:53: INJ, ONCE, Stop date: 06/30/19 10:53:00 PATENT CLERK Hydromorpho 2019-0 No Notes: Enrike nelia ne [...] (ANES) 1-10 Drug form: l 16:38: SOLN, [place] 00 ONCE, Stop date: 06/30/19 10:38:00 PATENT CLERK Lactated 0 No Route: IV, Mem oria Ringers 1-10 Total l Injection 16:11: Volume: Alicia nn IV (ANES) 00 1,000, 1000 mL Start date: 06/30/19 10:11:00 PATENT CLERK, Stop date: 06/30/19 11:11:00 PATENT CLERK Docusate 2019-0 No Notes: Memoria Sodium 50 -10 (Same as l MG / 15:00: Senokot-S) sennosides, 00 Equiv. to LONG-TERM 8.6 MG Stacy-Colac Oral Tablet e. Isolyte S 2019-0 No Notes: Memori a PH 7.4 1- (Same as: l 1,000 mL 14:08: Isolyte S Herm noé 00 PH7.4, Normosol-R PH 7.4, Plasma-Lyt e A ) Lovenox No Notes: Memoria 1- (Same as: l 00:00: Lovenox) Amlodipine No Notes: Memor ia 06-29 (Same as: l 18:00: Norvasc) Albuterol 0 No Notes: SEE Me moria 0.83 MG/ML -09 RT l Inhalant 17:07: DOCUMENTAT Her johnson Solution 00 ION (Same as: Proventil) Oxycodone 0 No Notes: Memori a Hydrochlori 06-29 (Same as: l de 5 MG 17:07: Roxicodone Herm noé Oral Tablet 00 ) Morphine 0 No Notes: Memoria 06-29 (Same l 17:07: as:MORPhin Facundo e Sulfate) Folic Acid No Notes: Memor ia 1- (Same as: l 15:00: Folvite) multivitami 2019-0 No Notes: Enrike nelia n 06-29 (Same l 15:00: as:Thera) WASTE: F/P - Black; E - Municipal Trash Bin Take with food. Thiamine 0 No Notes: Memoria 1- (Same As: l 15:00: Vitamin [place] 00 B1) Morphine 2020-0 No 4 mg, Memoria 06-28 Route: l 22:33: IVP, ONCE, [place] 00 kg, Start date: 06/28/19 16:33:00 PATENT CLERK, Stop date: 06/28/19 16:33:00 PATENT CLERK remove 2020-0 No Notes: Memoria patch -08 Remove l 22:00: patch 12 [place] 00 hours after applicatio n each day. Sodium 2020-0 No 1,000 mL, Memori a Chloride 06-28 Rate: 100 l 0.9% IV 15:10: ml/hr, [place] 1,000 mL + 00 Infuse M.V.I.-12 over: 10.1 10 mL Daily hr, Route: + folic IV, Total acid IV 1 Volume: mg Daily + 1,011.2, thiamine IV Start 1 date: 06/28/19 9:10:00 PATENT CLERK, Duration: 1 doses or times, Stop date: 06/28/19 19:15:00 PATENT CLERK, 0 Lidocaine 2019-0 No Notes: Memori a 0.05 MG/MG 06-28 Apply only l Transdermal 15:00: once for He rmann Patch 00 up to 12 hours in a 24-hour period (12 hours on and 12 hours off). (Same as: Lidoderm) "Remove old patch before applicatio n of new patch" Naproxen 0 No Notes: Memoria 06-28 (Same as: l 15:00: Naprosyn) [place] 00 Take with food. Thiamine 0 No Notes: Memoria 06-28 (Same As: l 10:30: Vitamin [place] 00 B1) Lidocaine 0 No Notes: Memori [...] en 06-28 acetaminop l 09:04: hen 4000 [place] 00 mg/day (4 gm/day). (Same as: Tylenol Extra Strength) gabapentin 2020-0 No Notes: Memor ia 06-28 (Same as: l 09:04: Neurontin) Tramadol 2019-0 No Notes: Not Mem oria 06-28 to exceed l 09:04: 400mg/day. [place] (Same As: Ultram) Enoxaparin 2020-0 No 30), Memori a 06-28 Start l 09:00: date: Facundo 06/28/19 3:00:00 PATENT CLERK, Duration: 30 day, Stop date: 07/27/19 15:00:00 PATENT CLERK Isolyte S 2020-0 No 1,000 mL, Mem oria PH 7.4 1000 06-28 Rate: 100 l mL 08:15: ml/hr, Infuse over: 10 hr, Route: IV, Total Volume: 1,000, Start date: 06/28/19 2:15:00 PATENT CLERK, Duration: 30 day, Stop date: 07/28/19 2:14:00 PATENT CLERK ketAMINE 2019-0 No Notes: Memoria additive 06-28 (Same as: l 300 mg [17 07:21: keTALAR) Her johnson mg/hr] + 00 Total Premix volume in Diluent 30 mL Sodium syringe Chloride 0.9% 30 mL Lidocaine 2019-0 No 1 %, Memoria 06-28 Route: l 06:59: SUB-Q, [place] 00 ONCE, kg, Start date: 06/28/19 0:59:00 PATENT CLERK, Stop date: 06/28/19 0:59:00 PATENT CLERK Bupivacaine 2020-0 No 10 mL, Enrike nelia Hydrochlori 06-28 Route: l de 2.5 06:59: SUB-Q, kg, Alicia nn MG/ML 00 ONCE, Injectable STAT, Solution Start date: 06/28/19 0:59:00 PATENT CLERK, Stop date: 06/28/19 0:59:00 PATENT CLERK Albuterol 2019-0 No Notes: Memori a 0.833 MG/ML 06-28 (Same as: 06:00: Duoneb) [place] Ipratropium 00 [place] 0.167 MG/ML Inhalant Solution [DuoNeb] Ketamine 2019-0 No 20 mg, Memoria 06-28 Route: IV, l 05:58: ONCE, kg, [place] 00 Start date: 06/27/19 23:58:00 PATENT CLERK, Stop date: 06/27/19 23:58:00 PATENT CLERK Saline 2020-0 No Notes: Memoria Flush 0.9% 1-08 Same as: l 05:55: BD [place] 00 Posiflush Sterile Isolyte S 2020-0 No 1,000 mL, Mem oria PH 7.4 1000 1-08 Rate: 125 l mL 05:55: ml/hr, [place] 00 Infuse over: 8 hr, Route: IV, Total Volume: 1,000, Priority: STAT, Start date: 06/27/19 23:55:00 PATENT CLERK, Duration: 1 doses or times, Stop date: 06/28/19 7:54:00 PATENT CLERK Vital Signs Vital Name Observation Time Observation Value Comments Source Systolic blood 2019-09-20 159 mm[Hg] [facility] of pressure 10:00:00 [place] [facility] Diastolic blood 2019-09-20 89 mm[Hg] University o f pressure 10:00:00 [place] [facility] Heart Rate 2019-09-20 74 /min [facility] 10:00:00 [place] [facility] Body temperature 2019-09-20 97.2 [degF] [facility] 10:00:00 [place] [facility] Systolic blood 2019-08-11 143 mm[Hg] [facility] pressure 10:56:00 [place] [facility] Diastolic blood 2019-08-11 79 mm[Hg] University o f pressure 10:56:00 [place] [facility] Heart Rate 2019-08-11 80 /min [facility] 10:56:00 [place] [facility] Systolic blood 2019-07-17 139 mm[Hg] Location: [facility] 13:25:00 Position: [place] [facility] Sitting Diastolic blood 2019-07-17 86 mm[Hg] Location: [facility] 13:25:00 Position: [place] [facility] Sitting Weight 2019-07-17 155 [lb_av] [facility] 13:25:00 [place] [facility] Body mass index 2019-07-17 25.02 kg/m2 University o f (BMI) [Ratio] 13:25:00 [place] [facility] Body temperature 2019-07-17 99 [degF] Method: [facility] 13::00 Tympanic [place] [facility] Heart Rate 2019-07-17 73 /min [facility] 13:25:00 [place] [facility] BP Systolic 2019-07-12 150 mm[Hg] [facility] 09:55:00 [place] [facility] BP Diastolic 2019-07-12 96 mm[Hg] [facility] 09:55:00 [place] [facility] Height 2019-07-12 66 [in_us] University 09:55:00 [place] [facility] Weight 2019-07-12 155 [lb_av] [facility] 09:55:00 [place] [facility] Body Mass Index 2019-07-12 25.02 kg/m2 University o f Calculated 09:55:00 [place] [facility] Heart Rate 2019-07-12 68 /min [facility] 09:55:00 [place] [facility] Systolic (mm Hg) 2019-07-06 [facility] [...] Pichardo n 14:01:00 BMI Calculated 2019-06-29 Brandy umanzor 14:01:00 Procedures Procedure Date / Time Performed Performing Clinician Sourc e CT Chest w contrast 2019-10-03 00:00:00 [facility] [id number] Tumor 2019-09-20 00:00:00 [place] [facility] [place] ezrbrwk-mfgnc-[place]zzrz[place] [facility] [id number] [facility] Neck soft tissue w 2019-09-20 00:00:00 [facility] contrast [id number] Physicians [U] XRAY FOOT MIN 3 2019-08-14 00:00:00 [facility]S RIGHT [id number] Physicians [U] XRAY FOOT MIN 3 2019-07-17 00:00:00 [facility] RIGHT [id number] Physicians Encounters Start End Encounter Admission Attending Care Care Encounter Source Date/Time Date/Time Type Type Clinicians Facility Department ID 2019-10-05 Inpatient [facility] [id number] [facility] H 16:43:31 2019-06-28 Inpatient E [facility] [id number] [facility] H 03:05:00 2019-11-30 2019-11-30 Orders Doctor COLTON [id number] 00:00:00 00:00:00 Only Unassigned, LATHA [id number] [place] [facility] [id number] 2019-11-27 2019-11-27 Transition Jose Mauricio [id number] 00:00:00 00:00:00 of Care Natalie Cruz [id number] Melvin [id number] 2019-11-23 2019-11-24 [facility] [id number] 09:48:07 17:37:00 Encounter Enrike Ortiz [facility] [id number] Giselle Brink Clear [id number] Cam[place] [id number] [facility] 109 ([facility]) 2019-09-20 2019-09-20 Appointmen VIKRAM MATSON & [id number] Univers 10:00:00 10:00:00 t; AMINA MATSON Maxillofmichael Arrington M.D.|DDS al Surgery Benny peña M.D.|DDS Physici ans 2019-08-30 2019-08-30 Appointmen YESICA [facility] Orthopedics [id number] Univers 08:45:00 08:45:00 t; PATRICIA ROBERT Trauma ity nataly GOMEZ M.D. [facility] Digna [facility] 2019-08-11 2019-08-11 Appointmen HUYEN [facility] Oral & [id number] Univers 10:15:00 10:15:00 t; AMINA MATSON Maxillofaci Nury M.D.|DDS al Surgery Benny peña M.D.|[facility] Physici ans 2019-07-06 2019-08-04 Outpatient Du, [facility] [id number] [facility] 09:11:00 23:59:00 Jason 00 Mtanios 2019-07-17 2019-07-17 Appointmen TRAUMACLINI [facility] General [id number] Univers 13:15:00 13:15:00 t; MD Porsche Surgery - ity of TRAUMACLIN [facility] MD ELVIRA [facility] Physici [facility] 2019-07-17 2019-07-17 Appointmen DIOR RODGERS, [facility] [id number] Univers 13:15:00 13:15:00 t; Digna RODGERS M.D. [facility] 2019-07-17 2019-07-17 Appointmen ERIC [facility] Orthopedics [id number] Univers 08:45:00 08:45:00 t; ADRIANA Trauma anuel [facility] 2019-07-12 2019-07-12 Appointmen HUYEN [facility] Oral & [id number] Univers 10:00:00 10:00:00 t; AMINA MATSON Maxillofmichael Arrington M.D.|DDS al Surgery Benny peña M.D.|DDS Physici ans 2019-07-06 2019-07-06 Outpatient [id number] 09:11:00 09:11:00 2019-06-27 2019-07-03 Outpatient Aziza [facility] [id number] 23:33:00 20:22:00 Melvin Huff 00 2019-06-27 2019-06-27 Outpatient Aziza [facility] [id number] 23:28:00 23:28:00 Melvin Huff 07 Results Test Description Test Time Test Comments Results Result [facility] e Comments [U] XRAY FOOT MIN 2019-07-17 Images Univers ity of 3 VWS RIGHT [id number] 09:26:00 [place] Physicians this accession number. HEMATOLOGY 2019-07-02 70.4 Memorial 09:51:00 [place] HEMATOLOGY 2019-07-02 17.0 Memorial 09:51:00 [place] HEMATOLOGY 2019-07-02 8.4 Memorial 09:51:00 [place] HEMATOLOGY 2019-07-02 3.1 Memorial 09:51:00 [place] HEMATOLOGY 2019-07-02 1.1 Memorial 09:51:00 [place] HEMATOLOGY 2019-07-02 8.1 Memorial 09:51:00 [place] HEMATOLOGY 2019-07-02 2.0 Memorial 09:51:00 [place] HEMATOLOGY 2019-07-02 1.0 Memorial 09:51:00 [place] HEMATOLOGY 2019-07-02 0.4 Memorial 09:51:00 [place] HEMATOLOGY 2019-07-02 0.1 Memorial 09:51:00 [place] HEMATOLOGY 2019-07-02 1+ Memorial 09:51:00 *ABN*(07/02/19 Facundo 3:51 AM) HEMATOLOGY 2019-07-02 11.5 Memorial 09:51:00 [place] HEMATOLOGY 2019-07-02 3.78 Memorial 09:51:00 [place] HEMATOLOGY 2019-07-02 13.1 Memorial 09:51:00 [place] HEMATOLOGY 2019-07-02 39.1 Memorial 09:51:00 [place] HEMATOLOGY 2019-07-02 103.3 Memorial 09:51:00 [place] HEMATOLOGY 2019-07-02 09:51:00 Test Item Value Reference Range Interpretation Comme nts MCH (test code = MCH) 34.8 pg 27.0-31.0 Memorial SpphwfgKACCQHIPVV5315-68-68 09:51:0033.6[facility] 2019-07-02 09:51:0016.0[facility] VljcjqqAZOMHLZMPP8929-65-09 09:51:46399Ikkfzqfw TaiduflNGYODLLLJH3516-26-68 09:51:007.4[facility] ZazcfoyRNEXDOGSOK3306-81-60 06:35:0011.9[facility] WofskmeOXDFNALYUG7781-90-41 06:35:003.69[facility] [place] NKEHMJQXVT7546-76-42 06:35:0012.5[facility] YhyqrjwIBOJTRFYCI8672-11-21 06:35:00 37.9[facility] JlkczrbCPXAIWLHVA8005-57-86 06:35:66557.9[facility]ann[facility]MATOLOGY 2019-07-01 06:35:00 Test Item Value Reference Range Interpretation Comments MCH (test code = MCH) 33.9 pg 27.0-31.0 Memorial AhqemvlDNONZHDZOJ3434-40-98 06:35:0032.9[facility]ann[facility]MATOLOGY 2019-07-01 06:35:0015.7[facility] CmawimdDBNJQQWADX3097-80-37 06:35:88704Zziorfhq CcojbiiXWAAUNKFWP0064-82-26 06:35:007.9[facility] JamcfnuBVNXPSDDRW9882-66-71 06:35:0085.4[facility] NptsnrfDOSRAMFTIT2898-88-53 06:35:007.9[facility] [place] ZUVBJPWLWE9017-60-45 06:35:006.2[facility] KqjoduaLWISYRXRAU9830-61-78 06:35:000.1 Memorial OwspwudHIJRRKWHVX7420-75-24 06:35:000.4[facility]ann[facility]MATOLOGY 2019-07-01 06:35:0010.1[facility] OfeaavhVBLVRAWFCM2578-94-52 06:35:000.9[facility] DbjadnzXQEEYHKIBB9567-06-93 06:35:000.7[facility] MqstbczESYUDFSAYO8709-01-73 06:35:001+ *ABN*(07/01/19 12:35 AM)[facility] HermannActinomyces odontolyticus 2019-06-30 16:46:00Actinomyces odontolyticusMemorial HermannStreptococcus ofxddenxx4270-76-96 16:46:00Streptococcus anginosusMemorial HermannHaemophilus egkcwmlwbpx4051-12-49 16:40:00Haemophilus hemolyticusMemorial HermannNeisseria lwwgikkt3059-97-36 16:40:00Neisseria subflavaMemorial HermannHEMATOLOGY 2019-06-30 09:05:0014.5[facility] WqvwhspDNXPTGYZIG3139-19-99 09:05:003.81[facility] GsmlznaCFYFYPOKCV6360-87-17 09:05:0013.1[facility] KtckngdNVQVCHICPO1675-86-79 09:05:0039.2[facility]orial JbfygsdFZLUYTDKIS5010-11-77 09:05:35842.8[facility] [place] MEMBPHWQKM3631-16-26 09:05:00 Test Item Value Reference Range Interpretation Comments MCH (test code = MCH) 34.2 pg 27.0-31.0 Memorial DumorgxTLZVZLSJIQ7805-81-14 09:05:0033.3[facility] HermannHEMATOLOGY 2019-06-30 09:05:0015.7[facility] HqjahmyESLXQTHLON8954-74-22 09:05:37409Raipapzo OppumymPXSXDHBUAJ0157-92-79 09:05:007.9[facility] UwfdhpjBQYCTIPMRZ6580-47-52 09:05:0076.5[facility] VkdkbemFXFWBGLJNB9431-48-36 09:05:0011.2[facility] [place] QERQQYGWTM2273-15-59 09:05:008.7[facility] UobvrapUPJYGSIQBR3880-18-09 09:05:002.5 Memorial YnzuxotTHNJXLAEWH2267-45-51 09:05:001.1[facility] HermannHEMATOLOGY 2019-06-30 09:05:0011.1[facility] TcmchdqPHMVDWWRGB2155-85-42 09:05:001.6[facility] JldedmfXQOPMMCSCD2944-16-51 09:05:001.3[facility] OozjoszLMBBRHXMGR9390-32-03 09:05:000.4[facility] NqdvrquJUHJHENEMJ5785-67-96 09:05:000.2[facility] [place] PZUVMHTWBO6215-90-52 09:05:001+ *ABN*(06/30/19 3:05 AM)[facility] [place] RPGFHYXSAQWK4592-69-82 09:00:0013.0[facility] JowktnqJNQCCCIBVEWJ2809-98-68 09:00:0080[facility] LlaplqqFHKLSQHIZGQD9833-41-98 09:00:0013[facility] [place] XVRWAOFGTTYR5269-16-75 09:00:000.72[facility] NfzypkySKZWGIXMALRM4086-03-86 09:00:32695Acjfrsbc SznsfhaJJRJKQALMSAP7210-27-95 09:00:004.0[facility] [place] PPLMOOSIVMEV3134-84-19 09:00:36705Muubhxbc IwuhgkxSMEFOKIGWRDQ1870-24-42 09:00:0023[facility] RyqteclKBDFNDVEEWAS2815-56-54 09:00:008.5[facility] [place] PWOHINAXARCV9576-79-44 09:00:17585Czuvoxjw QxnuwfmKHIQLGBVUV5402-82-20 09:00:00 0.3Memorial SxsnvlkOZYEIPCYIG1624-94-72 09:00:000.2[facility] HermannURINE AND XDMVX9550-95-10 09:13:00Light Yellow *NA*(06/28/19 3:13 AM)[facility] GGZPR3864-30-53 09:13:00Clear (06/28/19 3:13 AM)[facility] SDFOS5414-36-75 09:13:00 Test Item Value Reference Range Interpretation Comments UA Spec Grav (test code = UA Spec 1.023 1 Grav) [facility] AJMLR9674-83-00 09:13:00 Test Item Value Reference Range Interpretation Comments UA pH (test code = UA pH) 7.0 1 5.0-8.0 [facility] HFDQN0461-14-10 09:13:00Negative (06/28/19 3:13 AM) [facility] RZUXN5838-86-99 09:13:00Negative *NA*(06/28/19 3:13 AM) [facility] HIEEP4594-89-53 09:13:00Negative *NA*(06/28/19 3:13 AM) [facility] YTLYZ6497-60-80 09:13:00Negative *NA*(06/28/19 3:13 AM) [facility] ZFOFB7710-84-60 09:13:00Negative (06/28/19 3:13 AM) [facility] KJLXU3532-64-35 09:13:00<1.0[facility] AND NWNFC4552-21-53 09:13:00Negative (06/28/19 3:13 AM)[facility] HAWNF0346-43-33 09:13:00Negative (06/28/19 3:13 AM)[facility] STOOL 2019-06-28 09:13:00None Seen (06/28/19 3:13 AM)[facility] STOOL 2019-06-28 09:13:00<1[facility]ann[facility] AND WLIUH1715-29-25 09:13:00<1 [facility]annBLOOD BANK UJNGJNP2857-43-66 07:00:26Negative (06/28/19 1:00 AM) [facility] HermannCHEM KUUNO2787-50-39 06:08:05486Xunarsug HermannCHEM PANEL 2019-06-28 06:08:005[facility] HermannCHEM FXXXZ7750-87-21 06:08:000.68[facility] HermannCHEM PJDFN9138-87-87 06:08:02985Talckwuc HermannCHEM [id number] 06:08:003.4[facility]annCHEM [id number] 06:08:0098[facility]annCHEM [id number] 06:08:0025[facility]annCHEM [id number] 06:08:008.4 [facility]annCHE[facility] [id number] 06:08:12255Klaldrst HermannCHEM PANEL 2019-06-28 06:08:0014.4[facility]annCHEM [id number] 06:08:001.6[facility] BcmvgvrRDOWHXFAHU9529-02-59 06:08:00 Test Item Value Reference Range Interpretation Comments ACT (TEG) Rapid (test code = ACT (TEG) 97 s 86-118 Rapid) [facility] TylerXxplujrBOAWHOEMYP0551-68-93 06:08:00 Test Item Value Reference Range Interpretation Comments Split Point Rapid (test code = Split 0.3 min Point Rapid) [facility] TylerSgbxgyfMCZOFBYQXN5935-44-00 06:08:00 Test Item Value Reference Range Interpretation Comments R-time Rapid (test code = R-time 0.5 min 0.4-0.7 Rapid) [facility] [id number] 06:08:00 Test Item Value Reference Range Interpretation Comments K-time Rapid (test code = K-time 1.1 min 0.6-2.3 Rapid) [facility] TylerKefwaouORZZHDFKIV3956-89-20 06:08:00 Test Item Value Reference Range Interpretation Comments Angle Rapid (test code = Angle 76 degrees 64-80 Rapid) [facility] CenterCgtksvtNEITLAEKDN5980-67-29 06:08:00 Test Item Value Reference Range Interpretation Comments Max Amplitude Rapid (test code = Max 69 mm 52-71 Amplitude Rapid) [facility] CenterFsfsxgmVIPSGKDDSZ2065-54-54 06:08:0011.2[facility] 2019-06[facility]28 06:08[facility]000.0[facility]
[2020-01-04 11:29] LABS: Absolute Lymphocytes (CBC) 1.6 K/uL (0.7-4.9); Basophils % 0.2 % (0-1.3); Hematocrit 38.8 % (39.6-49.0); Lymphocytes % 6.1 % (15.3-44.8); RBC Red Blood Cell Count 4.09 M/uL (4.33-5.43)
[2020-01-04 11:50] LABS: ALT/SGPT 11 U/L (12-78); AST/SGOT 23 U/L (15-37); Albumin 2.8 g/dL (3.4-5.0); Alkaline Phosphatase 137 U/L (45-117); BUN Blood Urea Nitrogen 7 mg/dL (7-18); Bicarbonate 24 mmol/L (21-32); Bilirubin Direct 0.1 mg/dL (0-0.2); Bilirubin Total 0.4 mg/dL (0.2-1.0); Glucose Level 105 mg/dL (74-106); Lipase 129 U/L (73-393); Potassium 3.9 mmol/L (3.5-5.1); Protein, Total 8.1 g/dL (6.4-8.2); Sodium Level 132 mmol/L (136-145)
--- NOTE | 2020-01-04 11:55 | RAD REPORT ---
EXAM DESCRIPTION: CT - Abdomen Pelvis W Contrast - 01/04/2020 11:30 am CLINICAL HISTORY: gastrografin peg tube evaluation, abdominal pain COMPARISON: No comparisons TECHNIQUE: Biphasic, helical CT imaging of the abdomen and pelvis was performed following 100 ml non -ionic IV contrast. Oral contrast was given. All CT scans are performed using dose optimization technique as appropriate and may include automated exposure control or mA/KV adjustment according to patient size. FINDINGS: No suspicious findings in the lung bases. Liver size is normal with no suspicious liver parenchymal lesion identified. No focal splenic abnorma lity seen. No solid or cystic mass of the pancreatic parenchyma. Pancreatic duct is prominent in the head and body. Gallbladder size is normal. Biliary tree dilatation is present. Common bile duct is di lated up to 11 mm. No mass lesion in the duodenum or pancreas seen. Duct stones can be occult. Mild i ntrahepatic biliary tree dilatation is present. Symmetric renal function is seen with no hydronephrosis or suspicious renal mass. No pyelonephritis o r acute parenchymal process. A 3.9 centimeter cyst is present medial upper pole right kidney. A 2.6 c entimeter low-density right adrenal mass is present. A 2.1 centimeter low in attenuation left adrenal mass is present. Both are probably adenomas but do not meet strict diagnostic criteria. Peg tube is in place appearing well positioned in the body of the stomach. No extravasation of the ad ministered oral contrast. Small amounts of free intraperitoneal air present not unexpected for the pr ocedure. No hematoma, mass or other suspicious finding. Gastric beavers are not thickened or edematous. No delay in transit of contrast into the small bowel. Scattered nondilated fluid-filled small bowel loops are present. No bowel obstruction. No small bowel wall thickening or edema seen. Distal small bowel is decompressed. No colon dilatation or acute colo n finding. No abnormal free fluid collection. No pneumatosis. No mass or bulky lymphadenopathy. Sma ll fat only right inguinal hernia. Disc and bony degenerative changes are present. No acute finding. IMPRESSION: PEG tube is in place well positioned in the body of the stomach. No gastric wall thicken ing or edema. No hematoma, mass or suspicious finding along the course of the PEG tube. Small amounts of free intraperitoneal air present not unexpected for the recent procedure. Intrahepatic and extrahepatic biliary tree dilatation with normal size gallbladder. No obstructing ma ss identified. Stricture could be present. An occult duct stone is possible. Additional nonacute findings detailed in the body of the report.
[2020-01-04] MEDS ORDERED: ONDANSETRON 4 MG/2 ML VIAL ONE (12:00)
[2020-01-04] MEDS ORDERED: NA CHLORIDE 0.9% 1,000 ML ONE (12:00)
[2020-01-04] MEDS ORDERED: MORPHINE 4 MG/ML SYR ONE (12:00)
[2020-01-04 12:24] LABS: Blood Morphology Comment NOT SEEN (NOT SEEN); Platelet Estimate ADEQ; Urine White Blood Cell Casts OK
--- NOTE | 2020-01-04 13:13 | EDPHYS ---
Physician Documentation [facility] Name: Dao Davalos Jr Age: 59 yrs Sex: Male : 1960 Arrival Date: 01/04/2020 Time: 10:50 Bed 8 Private MD: ED Physician Charles Calle HPI: 01/03 10:53 This 59 yrs old Male presents to ER via EMS with complaints of Abdominal Pain.[facility] 10:53 The patient presents with abdominal pain. Onset: The symptoms/episode began/occurred jmm today. The symptoms are described as achy, sharp. Modifying factors: The symptoms are alleviated by nothing, the symptoms are aggravated by nothing. This is a 59 year old male that presents to the ED with complaints of abdominal pain. Patient had a percutaneous peg tube placement performed yesterday by Dr. Blood. . 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 - Social history:: Smoking status: Patient/guardian denies using. ROS: 10:53 Constitutional: Negative for fever, chills, and weight loss, Cardiovascular: Negative jm for chest pain, palpitations, and edema, Respiratory: Negative for shortness of breath, cough, wheezing, and pleuritic chest pain. 10:53 Abdomen/GI: Positive for abdominal pain. 10:53 All other systems are negative. Exam: 10:53 Head/Face: atraumatic. Eyes: EOMI, no conjunctival erythema appreciated ENT: Moist jmm Mucus Membranes Neck: Trachea midline, Supple Chest/axilla: Normal chest wall appearance and motion. Cardiovascular: Regular rate and rhythm. No edema appreciated Respiratory: Normal respirations, no respiratory distress appreciated 10:53 Skin: General appearance color normal MS/ Extremity: Moves all extremities, no obvious deformities appreciated, no edema noted to the lower extremities Neuro: Awake and alert, normal gait Psych: Behavior is normal, Mood is normal, Patient is cooperative and pleasant 10:53 Constitutional: The patient appears alert, awake, in obvious pain, uncomfortable. 10:53 Abdomen/GI: peg tube insertion site examined, abdomen is soft, no drainage appreciated, compartments are soft. 10:53 Musculoskeletal/extremity: ROM: intact in all extremities. Vital Signs: 10:43 BP 127 / 81; Pulse 98; Resp 17; Temp 98.7(TE); Pulse Ox 96% on R/A; Weight 56.7 kg (R); rb1 Height 5 ft. 6 in. (167.64 cm) (R); Pain 10/10; 11:43 BP 123 / 86; Pulse 91; Resp 17; Pulse Ox 95% ; rb1 12:33 BP 148 / 76; Pulse 91; Resp 16; Pulse Ox 96% ; rb1 13:30 BP 133 / 91; Pulse 99; Resp 17; Pulse Ox 100% ; rb1 10:43 Body Mass Index 20.18 (56.70 kg, 167.64 cm) rb1 MDM: 10:53 Patient medically screened. [facility] 13:10 Data reviewed: vital signs, nurses notes. Counseling: I had a detailed discussion with hay the patient and/or guardian regarding: the historical points, exam findings, and any diagnostic results supporting the discharge/admit diagnosis, lab results, radiology results, the need for outpatient follow up, to return to the emergency department if symptoms worsen or persist or if there are any questions or concerns that arise at home. ED course: I discussed ct results/ lab results with Dr. Blood. Patient is safe to go home. Leukocytosis has been ongoing for the past month due to jaw infection currently being treated by oncology. Patient is given strict return precautions. Patient understood and agrees with the plan of care.. 01/03 10:58 Order name: Basic Metabolic Panel; Complete Time: 12:01 [facility] 01/03 10:58 Order name: CBC with Diff; Complete Time: 12:32 [facility] 01/03 10:58 Order name: Hepatic Function; Complete Time: 12:01 [facility] 01/03 10:58 Order name: Lipase; Complete Time: 12:01 [facility] 01/03 11:35 Order name: CBC Smear Scan; Complete Time: 12:32 [facility] 01/03 11:37 Order name: CREATININE WHOLE BLOOD; Complete Time: 11:45 [facility] 01/03 10:58 Order name: IV Saline Lock; Complete Time: 11:20 [facility] 01/03 10:58 Order name: Labs collected and sent; Complete Time: 11:20 [facility] 01/03 10:58 Order name: CT Abd/Pelvis - PO and IV Contrast; Complete Time: 12:01 [facility] Administered Medications: 12:01 Drug: morphine 4 mg Route: IVP; Site: right forearm; rb1 12:16 Follow up: Response: No adverse reaction; Pain is decreased rb1 12:01 Drug: Zofran (Ondansetron) 4 mg Route: IVP; Site: right forearm; rb1 12:16 Follow up: Response: No adverse reaction rb1 12:01 Drug: NS 0.9% 1000 ml Route: IV; Rate: 1 bolus; Site: right forearm; rb1 13:04 Follow up: IV Status: Completed infusion rb1 13:24 Drug: fentaNYL (PF) 50 mcg Route: IVP; Site: right forearm; rb1 13:46 Follow up: Response: No adverse reaction rb1 Disposition: 15:13 Co-signature as Attending Physician, Charles Calle MD. rn Disposition: 01/04/20 13:12 Discharged to Home. Impression: Other abdominal pain. - Condition is Stable. - Discharge Instructions: Abdominal Pain, Adult. - Prescriptions for Ultracet 37.5- 325 mg Oral Tablet - take 1 tablet by ORAL route every 6 hours - for up to 5 days; do not exceed 8 tablets per day.; 20 tablet. - Medication Reconciliation Form, Thank You Letter, Antibiotic Education, Prescription Opioid Use form. - Follow up: Coy Mckeon MD; When: 2 - 3 days; Reason: Recheck today's complaints, Continuance of care, Re-evaluation by your physician. Signatures: Dispatcher [employer] [facility] Lloyd Aguilar PA PA jmm Nieto, Roman, MD MD rn Barber, Rebecca, RN RN rb1 Corrections: (The following items were deleted from the chart) 13:49 13:12 01/04/2020 13:12 Discharged to Home. Impression: Other abdominal pain. Condition rb1 is Stable. Forms are Medication Reconciliation Form, Thank You Letter, Antibiotic Education, Prescription Opioid Use. Follow up: Coy Mckeon; When: 2 - 3 days; Reason: Recheck today's complaints, Continuance of care, Re-evaluation by your physician. hay
--- NOTE | 2020-01-04 13:13 | ER ---
Nurse's Notes [facility] Name: Dao Davalos Jr Age: 59 yrs Sex: Male : 1960 Arrival Date: 01/04/2020 Time: 10:50 Bed 8 Private MD: Diagnosis: Other abdominal pain Presentation: 01/03 10:43 Chief complaint: EMS states: Pt. 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 Had a Peg tube placed yesterday by Dr. Mckeon and is complaining of abdominal pain 03/30. Denies nausea, vomiting, diarrhea, and fever. Currently receiving Chemotherapy and radiation. Medication: Liquid Morphine. BP 112/72 O2 sat 94% RA. 10:43 Coronavirus screen: Proceed with normal triage. Ebola Screen: Patient negative for rb1 fever greater than or equal to 101.5 degrees Fahrenheit, and additional compatible Ebola Virus Disease symptoms. Initial Sepsis Screen: Does the patient meet any 2 criteria? No. Patient's initial sepsis screen is negative. Does the patient have a suspected source of infection? Yes: Skin breakdown/wound Acute abdominal pain. Risk Assessment: Do you want to hurt yourself or someone else? Patient reports no desire to harm self or others. Onset of symptoms was January 04, 2020. 10:43 Method Of Arrival: EMS[facility] rb1 10:43 Acuity: ROGER 3 rb1 Triage Assessment: 10:43 General: Appears uncomfortable, Behavior is calm, cooperative. Pain: Complains of pain rb1 in abdomen Pain currently is 10 out of 10 on a pain scale. Neuro: Level of Consciousness is awake, alert, obeys commands, Oriented to person, place, time, situation. Cardiovascular: Capillary refill < 3 seconds. Respiratory: Airway is patent Respiratory effort is even, unlabored, Respiratory pattern is regular, symmetrical. GI: Has an abdominal dressing in place due to having a Peg Tube placed yesterday by Dr. Mckeon. : No signs and/or symptoms were reported regarding the genitourinary system. Derm: Skin is pink, warm \T\ dry. Musculoskeletal: Range of motion: intact in all extremities. 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 - Social history:: Smoking status: Patient/guardian denies using. Screenin:43 Abuse screen: Denies threats or abuse. Nutritional screening: No deficits noted. rb1 Tuberculosis screening: No symptoms or risk factors identified. Fall Risk None identified. Assessment: 10:43 General: See triage assessment. rb1 10:43 GI: Abdomen is tender to palpation X 4 quads. rb1 10:43 GI: Bowel sounds present X 4 quads. rb1 11:43 Reassessment: Patient appears in no apparent distress at this time. No changes from rb1 previously documented assessment. 12:33 Reassessment: Patient appears in no apparent distress at this time. Patient and/or rb1 family updated on plan of care and expected duration. Pain level reassessed. Patient is alert, oriented x 3, equal unlabored respirations, skin warm/dry/pink. 13:30 Reassessment: Patient appears in no apparent distress at this time. No changes from rb1 previously documented assessment. Vital Signs: 10:43 BP 127 / 81; Pulse 98; Resp 17; Temp 98.7(TE); Pulse Ox 96% on R/A; Weight 56.7 kg (R); rb1 Height 5 ft. 6 in. (167.64 cm) (R); Pain 10/10; 11:43 BP 123 / 86; Pulse 91; Resp 17; Pulse Ox 95% ; rb1 12:33 BP 148 / 76; Pulse 91; Resp 16; Pulse Ox 96% ; rb1 13:30 BP 133 / 91; Pulse 99; Resp 17; Pulse Ox 100% ; rb1 10:43 Body Mass Index 20.18 (56.70 kg, 167.64 cm) rb1 ED Course: 10:43 Arm band placed on right wrist. rb1 10:43 Patient has correct armband on for positive identification. Bed in low position. Call rb1 light in reach. Side rails up X 1. Pulse ox on. NIBP on. Warm blanket given. 10:50 Patient arrived in ED. rb1 10:50 Miley Helm, RN is Primary Nurse. rb1 10:52 Lloyd Aguilar [facility]. m 10:52 Charles Calle MD is Attending Physician. m 10:56 Triage completed. rb1 11:10 Inserted saline lock: 20 gauge in right forearm, using aseptic technique. Blood bp collected. 11:30 CT Abd/Pelvis - PO and IV Contrast In Process Unspecified. EDMS 13:12 Coy Mckeon MD is Referral Physician. jmm 13:47 No provider procedures requiring assistance completed. IV discontinued, intact, rb1 bleeding controlled, No redness/swelling at site. Pressure dressing applied. Administered Medications: 12:01 Drug: morphine 4 mg Route: IVP; Site: right forearm; rb1 12:16 Follow up: Response: No adverse reaction; Pain is decreased rb1 12:01 Drug: Zofran (Ondansetron) 4 mg Route: IVP; Site: right forearm; rb1 12:16 Follow up: Response: No adverse reaction rb1 12:01 Drug: NS 0.9% 1000 ml Route: IV; Rate: 1 bolus; Site: right forearm; rb1 13:04 Follow up: IV Status: Completed infusion rb1 13:24 Drug: fentaNYL (PF) 50 mcg Route: IVP; Site: right forearm; rb1 13:46 Follow up: Response: No adverse reaction rb1 Outcome: 13:12 Discharge ordered by MD. m 13:47 Discharged to home via wheelchair, with family. rb1 13:47 Condition: stable 13:47 Discharge instructions given to patient, Instructed on discharge instructions, follow up and referral plans. medication usage, Demonstrated understanding of instructions, follow-up care, medications, Prescriptions given X 1. 13:49 Patient left the ED. rb1 Signatures: Dispatcher [employer] EDMS Lloyd Aguilar PA PA [facility] Miley Helm, RN RN rb1 Todd Buckley RN RN bp
[2020-01-04] MEDS ORDERED: FENTANYL CITR 100 MCG/2 ML ONE (13:29)
[2020-01-04 14:09] VITALS: TEMP 98.7
[2020-01-04 14:13] VITALS: BP 133/91; O2SAT 100
== END 2020-01-04 13:49 | disposition home or self-care (01) ==
LOC: ER 10:39
DX: R10.9 Unspecified abdominal pain (principal); Z98.890 Other specified postprocedural states; Z85.89 Personal history of malignant neoplasm of other organs and systems
CPT/HCPCS: 96361; 85025; 80048; 36415; 82565; 80076; 83690; 74177; 96375; 96374; 99284; Q9967; J3010; J7030; J2405